=== PATIENT | male | born 1975 | race Caucasian/White ===

== ENCOUNTER 2023-06-10 05:22 | Emergency (ER) | payer OTHER, SELFPAY ==
--- NOTE | ~2023-06-10 | XR_ITS ---
Clinical Indication: Chest pain PA and lateral views of the chest: Comparison: None Findings: The lungs are clear, without evidence of focal consolidation or pleural effusion. Cardiome diastinal silhouette is within normal limits. Bones and soft tissues are unremarkable. Impression: Normal chest. Reviewed, dictated and finalized at location . IFIED ORTHOTIST/PEDORTHIST Impression: Normal chest.
--- NOTE | 2023-06-10 05:23 | ECG_ITS ---
Measurements Intervals [place] Rate: 70 P: 65 IN: 179 QRS: -14 QRSD: 108 T: 21 QT: 385 QTc: 415 Interpretive Statements SINUS RHYTHM NORMAL ELECTROCARDIOGRAM+ NO PREVIOUS ECG AVAILABLE FOR COMPARISON Electronically Signed On 06-10-2023 12:39:30 COMPUTER ASSISTANT by Ruiz Alexis M.D.
[2023-06-10 05:27] VITALS: BP 158/72; PULSE 78; RESP 14; TEMP 36.3; O2SAT 100
--- NOTE | 2023-06-10 05:30 | ED.CHESTPAIN ---
HPI - Chest Pain General Chief Complaint: Chest Pain <Marion Thakur MD - Last Filed: 06/10/23 07:19> Stated Complaint: chest pain <Marion Thakur MD - Last Filed: 06/10/23 07:19> Time Seen by Provider: 06/10/23 05:28 <Marion Thakur MD - Last Filed: 06/10/23 07:19> Source: patient <Marion Thakur MD - Last Filed: 06/10/23 07:19> Mode of arrival: ambulatory <Marion Thakur MD - Last Filed: 06/10/23 07:19> Limitations: no limitations <Marion Thakur MD - Last Filed: 06/10/23 07:19> History of Present Illness HPI narrative: 48-year-old male past medical history GERD presents with acute onset left sided chest pain radiating into his left arm which is experiencing some tingling into the forearm and digits 1 and 2. This started acutely at 4:00 a.m. waking out of a sleep. He was lightheaded and nauseated but these two symptoms resolved. The chest pain and numbness/tingling persist though occurs intermittently. He had been on that 330 to urinate and did not have symptoms at that time. This is not associated with shortness of breath and he has not been experiencing cough or fever. This has happened before. He previously saw a airframe and powerplant mechanic when it occurred in 2009 while living in [place]; reportedly normal work up. He also had symptoms in 2017 Where he felt like his heart was slowed but with more intense heartbeats and he would experience episodes of flushing with this. He wore an event monitor in which he recorded multiple such events occurring but these do not correspond with any concerning EKG findings. This was evaluated by his cardiologst in [place]. He does not a history of anxiety. No lower extremity edema. He has been trying to work out, sleep well. home medications include 20 mg of omeprazole in the morning and 20 mg of famotidine in the evening. He is also a small dose of Zoloft which he is currently being titrated off of under the direction of his primary care physician is currently taking every other day. Is also taking tamsulosin q.h.s.. <Marion Thakur MD - Last Filed: 06/10/23 07:19> Related Data Allergies/Adverse Reactions: Allergies Allergy/AdvReac Type Severity Reaction Status Date / Time No Known Allergies Allergy Verified 06/10/23 05:31 <Marion Thakur MD - Last Filed: 06/10/23 07:19> PMFSH Past Medical History Medical History: Medical History (Updated 06/10/23 @ 06:23 by Marion Thakur MD) GERD (gastroesophageal reflux disease) <Marion Thakur MD - Last Filed: 06/10/23 07:19> Social History Social History: Social History (Updated 06/10/23 @ 06:25 by Marion Thakur MD) Living arrangements: with family Additional living arrangements comments: Occupation/Education: occupation <Marion Thakur MD - Last Filed: 06/10/23 07:19> Exam Narrative: GENERAL: Well-appearing, well-nourished, and in no acute distress. HEAD: Normocephalic, atraumatic. EYES: Non injected, non icteric ENT: Nares clear, no rhinorrhea or epistaxis. NECK: Supple. CHEST: Clear to auscultation. No respiratory distress. HEART: Regular rate and rhythm. . ABDOMEN: Soft, nondistended. EXTREMITIES: Normal range of motion. No edema. SKIN: Warm, dry, no rash. NEURO: No focal deficits. Alert and oriented x3. PSYCH: Normal mood and affect. <Marion Thakur MD - Last Filed: 06/10/23 07:19> Course Course Emergency Course: Received sign-out on this patient pending repeat troponin. Delta troponin is unremarkable. Repeat EKG without changes, no acute ischemic changes. Patient is safe for outpatient management. Advised PCP follow-up. Appropriate return precautions given. Discharged in stable condition. <Cherrie Ambrosio MD - Last Filed: 06/10/23 10:44> Vital Signs Vital signs: Vital Signs Temperature 97.4 F L 06/10/23 05:27 Pulse Rate 78
[2023-06-10] MEDS: ASPIRIN 81 MG CHEWABLE TABLET 324 MG PO (05:33)
[2023-06-10 05:44] LABS: Basophils Percent Auto 0.4 % (0.2-1.2); Eosinophils Absolute Auto 0.1 K/mm3 (0-0.3); Eosinophils Percent Auto 2.2 % (0-4.4); Hematocrit 45.2 % (42.0-52.0); Hemoglobin 15.1 g/dL (14.0-18.0); Immature Granulocyte Absolute 0.01 K/mm3 (0.00-0.031); Immature Granulocyte Percent A 0.2 % (0-0.5); Lymphocytes Absolute Auto 2.14 K/mm3 (0.9-3.2); Lymphocytes Percent Auto 43.4 % (18.3-44.2); Mean Corpuscular HGB Conc 33.4 g/dl (32-36); Mean Corpuscular Hemoglobin 31.3 pg (26-34); Mean Corpuscular Volume 93.8 fl (80-100); Mean Platelet Volume 9.9 fl (7.4-10.4); Monocytes Absolute Auto 0.5 K/mm3 (0.1-0.6); Monocytes Percent Auto 10.1 % (2.6-8.5); Neutrophils Absolute Auto 2.2 K/mm3 (1.3-6.7); Neutrophils Percent Auto 43.7 % (45.5-73.1); Platelet Count Result 205 k/mm3 (150-375); Red Blood Count 4.82 M/mm3 (4.6-6.20); Red Cell Distribution Width 12.3 % (11.5-14.5); White Blood Count 4.9 K/mm3 (4.5-10.0)
[2023-06-10] MEDS: ACETAMINOPHEN 500 MG TABLET 1000 MG PO (05:54)
[2023-06-10 05:55] LABS: Prothrombin Time 13.4 Seconds (11.1-14.7)
[2023-06-10 05:56] LABS: Partial Thromboplastin Time 27.7 SECONDS (22.3-36.8)
[2023-06-10 06:11] LABS: Alanine Aminotransferase 55 U/L (6-50); Albumin Level 4.5 g/dL (3.5-5.1); Alkaline Phosphatase 71 U/L (38-126); Anion Gap 5 mmol/L (8-16); Aspartate Amino Transferase 51 U/L (17-59); Bilirubin,Total 0.6 mg/dL (0.2-1.3); Blood Urea Nitrogen 27 mg/dL (9-20); Calcium 9.3 mg/dL (8.4-10.2); Carbon Dioxide 29 mmol/L (22-30); Chloride 103 mmol/L (98-107); Estimated CRCL calculation 91 ml/min; Estimated Glomerular Filt Rate > 60; Glucose 104 mg/dL (65-110); Lipase 121 U/L (23-300); Sodium 137 mmol/L (137-145)
[2023-06-10 06:18] LABS: Troponin I < 0.012 ng/mL (0.000-0.034)
[2023-06-10 06:31] VITALS: BP 126/74; PULSE 60; RESP 15; O2SAT 97
[2023-06-10] MEDS: IBUPROFEN 600 MG TABLET PO (07:28)
[2023-06-10 09:17] LABS: Troponin I < 0.012 ng/mL (0.000-0.034)
--- NOTE | 2023-06-10 10:27 | ECG_ITS ---
Measurements Intervals [place] Rate: 60 P: 41 NE: 185 QRS: -19 QRSD: 107 T: 5 QT: 388 QTc: 388 Interpretive Statements SINUS RHYTHM LOW QRS VOLTAGE WITHIN NORMAL LIMITS NO PREVIOUS ECG AVAILABLE FOR COMPARISON Electronically Signed On 06-10-2023 12:43:01 EM PHYSICIAN by Ruiz Alexis M.D.
[2023-06-10 10:57] VITALS: BP 123/78; PULSE 70; RESP 16; O2SAT 97
== END 2023-06-10 11:00 | disposition home or self-care (01) ==
PROVIDERS: Emergency Provider Student in an Organized Health Care Education/Training Program; PCP Physician Assistant
DX: R07.9 Chest pain, unspecified (principal); R74.01 Elevation of levels of liver transaminase levels; K21.9 Gastro-esophageal reflux disease without esophagitis
CPT/HCPCS: 36415; 71046; 80053; 83690; 84484; 85025; 85610; 85730; 93005; 99284; A9270

== ENCOUNTER 2024-09-19 08:06 | Emergency (ER) | payer OTHER, SELFPAY ==
--- NOTE | ~2024-09-19 | XR_ITS ---
XR foot RT 2V 09/19/2024 08:33 INDICATION: Possible foreign body. PROCEDURE: 4 views right foot COMPARISON: No prior studies for comparison. FINDINGS: Fracture, dislocation or subluxation is not identified. The soft tissues appear within norm al limits. No foreign bodies are identified. IMPRESSION: 1: NO ACUTE BONE OR JOINT ABNORMALITY IDENTIFIED. Reviewed, dictated and finalized at location A.
--- OUTSIDE RECORDS SUMMARY | 2024-09-19 08:09 | XMS_ITS | Encounter Summary ---
Author Name [facility] Organization [facility] Address [address] [place] [address] Care Team Providers Care Turkey Boner Name Role Phone SERENE HAYES Primary Care Provider Unavailab le Selected Encounter This section includes the information on record at [place] for the Encounter. Date/Time Encounter Type Encounter Description Reason Pro vider Source Sep 22, 2023 05:55 AM Outpatient Encounter COMMUNITY CARE CONSULT IHE Encounter Template Text not used by [place] Plan of Treatment: Future Appointments (+ 6 months) and Future Tests (+/- 45 days) The Plan of Treatment section includes future care activities for the patient from all [place] treatmentfacilities. This section includes future appointments and future orders which are active, pending or scheduled. Future Appointments This section includes appointments that were scheduled to occur 6 months from the date of the Encounter, up to a maximum of 20 appointments. The data comes from all [place] treatment facilities. Appointment Date/Time Appointment Type Appointme nt Facility Name Jan 11, 2024 08:50 AM AMBULATORY - NONE [facility] Active, Pending, and Scheduled Orders This section includes a listing of several types of active, pending, and scheduled orders, including clinic medications orders, diagnostic test orders, procedure orders and consult orders; where the start date of the order is 45 days before the date of the Encounter or 45 days after the date of theEncounter. The data comes from all [place] treatment facilities. Test Date/Time Test Type Test Details Facility Name Sep 22, 2023 02:55 PM Consult Order COMMUNITY CARE-[facility] DENTAL SPEC Cons Real Estate Agent/Broker's Choice [facility] Encounter Notes: All associated encounter notes This section contains the clinical notes associated to the Encounter. Date/Time Encounter Note(s) Provider Source Sep 22, 2023 02:56 PM ADDENDUM: LOCAL TITLE: Addendum STANDARD TITLE: ADDENDUM DATE OF NOTE: SEP 22, 2023@14:56:56 ENTRY DATE: SEP 22, 2023@14:56:57 AUTHOR: AJIT GARCIA EXP COSIGNER: URGENCY: STATUS: COMPLETED [facility] DENTAL SERVICE/COMMUNITY CARE RFS DETERMINATION The requested treatment: AUTHORIZED SUBMITTED. AUTHORIZED TREATMENT: E7284-Fggcuu of oral Tissue-hard (bone-tooth V6225-Xqielrjl (ressobable) per site#6 R0265-Qmcl Replace graft-1st site in quad #[address] ACTION STEPS * RFS/ADA Dental Claim Form external records reviewed. * New consult(s) placed with corresponding SEOC(s). * [place] to continue dental treatment with community provider. AUTHORIZED PROVIDER: Olu Irene [address] [place] [address] Email: [email or web address] COMMUNITY CARE COORDINATION NOTES Please continue 's care for authorized treatment. /mona/ AJIT GARCIA DMD DENTIST Signed: 09/22/2023 14:57 Receipt Acknowledged By: 09/22/2023 15:13 /mona/ ABELARDO BUCHANAN COMMUNITY CARE RN --- Original Document --- 09/22/23 COMMUNITY CARE-REQUEST FOR SERVICE NOTE ST[facility]: Request for Services (RFS) documentation has been sent for scanning to [facility] Community [facility] Consult: COMMUNITY CARE-stl den spec Consult No: [id number] Date sent to scanning: Sep A Request for Service (RFS) form [id number] has been received which includes the following: Care Requested: E6727-Jtbbwq of oral Tissue-hard (bone-tooth V7905-Rkidtbsz (ressobable) per site#6 J1186-Mxoj Replace graft-1st site in quad #6 ICD-10 Dx code: K05.6 Date [place] received request: Sep Date service required: Sep Requesting Community Provider Information: [address] [place] [address] Email: [email or web address] /mona/ MAUREEN TAYLOR ADVANCE ROLLER PICKER Signed: 09/22/2023 05:59 Receipt Acknowledged By: 09/22/2023 14:56 /es/ AJIT GARCIA DMD DENTIST AJIT GARCIA [facility] Sep 22, 2023 05:55 AM NONVA NOTE: LOCAL TITLE: COMMUNITY CARE-REQUEST FOR SERVICE NOTE STL STANDARD TITLE: NONVA NOTE DATE OF NOTE: SEP 22, 2023@05:55 ENTRY DATE: SEP 22, 2023@05:56:06 AUTHOR: MAUREEN TAYLOR EXP COSIGNER: URGENCY: STATUS: COMPLETED COMMUNITY CARE-REQUEST FOR SERVICE NOTE [facility] Has ADDENDA Request for Services (RFS) documentation has been sent for scanning to [facility] Community Care Consult: COMMUNITY CARE-stl den spec Consult No: [id number] Date sent to scanning: Sep A Request for Service (RFS) form [id number] has been received which includes the following: Care Requested: X8307-Phhpkk of oral Tissue-hard (bone-tooth E2114-Dkwioejw (ressobable) per site#6 N0229-Jrcl Replace graft-1st site in quad #6 ICD-10 Dx code: K05.6 Date [place] received request: Sep Date service required: Sep Requesting Community Provider Information: [address] [address] Email: [email or web address] /mona/ MAUREEN TAYLOR ADVANCE ROLLER PICKER Signed: 09/22/2023 05:59 Receipt Acknowledged By: 09/22/2023 14:56 /es/ AJIT GARCIA DMD DENTIST 09/22/2023 ADDENDUM STATUS: COMPLETED [facility] DENTAL SERVICE/COMMUNITY CARE RFS DETERMINATION The requested treatment: AUTHORIZED SUBMITTED. AUTHORIZED TREATMENT: T2954-Fsylib of oral Tissue-hard (bone-tooth N9154-Dsjdzmfq (ressobable) per site#6 X7703-Dvlb Replace graft-1st site in quad #[address] ACTION STEPS * RFS/ADA Dental Claim Form external records reviewed. * New consult(s) placed with corresponding SEOC(s). * [place] to continue dental treatment with community provider. AUTHORIZED PROVIDER: O[address] Irene [address] [place] [address] Email: [email or web address] COMMUNITY CARE COORDINATION NOTES Please continue [place]'s care for authorized treatment. /mona/ AJIT GARCIA DMD DENTIST Signed: 09/22/2023 14:57 Receipt Acknowledged By: * AWAITING SIGNATURE * ABELARDO BUCHANAN ALICIA M [facility]
--- OUTSIDE RECORDS SUMMARY | 2024-09-19 08:10 | XMS_ITS | Encounter Summary ---
Author Organization [facility] Facility Care Team Providers Care Rag Grader Name Role Phone Hollis Martinez Primary Care Provider [phone] Jovi Batista MD Primary Care Provider [phone] Encounter Details Date Type Department Care Team (Latest Contact Info) Description 04/30/2014 Orders Only [facility] CLINCONV Provider, MD Brissa [address] [place] [address] Social History Tobacco Use Types Packs/Day Years Used Date Smoking Tobacco: Never Assessed Sex and Gender Information Value Date Recorded Sex Assigned at Not on file Legal Sex Male 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 Historical Provider Final Res ult documented in this encounter Visit Diagnoses Not on filedocumented in this encounter Additional Health Concerns Infection Onset Date Last Indicated Resolved Time COVID: Suspected 09/29/2021 09/29/2021 09/30/2021 3:05 AM CDT COVID: Suspected 09/30/2021 09/30/2021 09/30/2021 8:25 PM CDT documented as of this encounter Care Teams Rag Grader Relationship Specialty Start Date End Date Hollis Martinez PA PCP - General Family Medicine 09/21/18 11/21/23 J[place] [address] PCP - General Family Medicine 11/22/23 documented as of this encounter
--- OUTSIDE RECORDS SUMMARY | 2024-09-19 08:10 | XMS_ITS | Encounter Summary ---
Author Organization [facility] Facility Care Team Providers Care Butcher Meat Name Role Phone Hollis Martinez Primary Care Provider [phone] Jovi Batista MD Primary Care Provider [phone] Encounter Details Date Type Department Care Team (Latest Contact Info) Description 06/03/2016 Orders Only [facility] CLINCONV Provider, MD Brissa [address] [place] [address] Social History Tobacco Use Types Packs/Day Years Used Date Smoking Tobacco: Never Sex and Gender Information Value Date Recorded Sex Assigned at Not on file Legal 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 Historical Provider Final Res ult documented in this encounter Visit Diagnoses Not on filedocumented in this encounter Additional Health Concerns Infection Onset Date Last Indicated Resolved Time COVID: Suspected 09/29/2021 09/29/2021 09/30/2021 3:05 AM CDT COVID: Suspected 09/30/2021 09/30/2021 09/30/2021 8:25 PM CDT documented as of this encounter Care Teams Butcher Meat Relationship Specialty Start Date End Date Hollis Martinez PA PCP - General Family Medicine 09/21/18 11/21/23 Jovi [place] [address] PCP - General Family Medicine 11/22/23 documented as of this encounter
--- OUTSIDE RECORDS SUMMARY | 2024-09-19 08:10 | XMS_ITS | Clinical Summary ---
Author Organization [facility] Address [address] [place] [address] Care Team Providers Care Search Engine Optimizer Name Role Phone Unavailable Primary Care Provider Unavailabl e Medications tamsulosin (FLOMAX) 0.4 mg capsule Take 1 Capsule (0.4 mg) by mouth daily. 90 Capsule 3 08/07/2024 Active Encounters Date Type Department Care Team Description 09/05/2024 External Device Data [facility] ABSTRACTION Provider, Abstract 09/04/2024 External Device Data [facility] ABSTRACTION Provider, Abstract 08/14/2024 External Device Data [facility] ABSTRACTION Provider, Abstract 08/14/2024 External Device Data [facility] ABSTRACTION Provider, Abstract 08/14/2024 External Device Data [facility] ABSTRACTION Provider, Abstract from Last 3 Months Social History Tobacco Use Types Packs/Day Years Used Date Smoking Tobacco: Never Assessed Sex and Gender Information Value Date Recorded Sex Assigned at Not on file Legal Sex Male 9:22 AM CDT Gender Identity Not on file Sexual Orientation Not on file Plan of Treatment Health Maintenance Due Date Last Done Comments DTAP/TDAP/TD VACCINES (1 - Tdap) 1994 HEPATITIS B VACCINES (1 of 3 - 19+ 3-dose series) 05/20 COLORECTAL SCREENING 2020 Colorectal Cancer Screening 2020 FIT-DNA Q 3 years 2020 FIT/FOBT Q 1 year 2020 Flex Sig/CT Colonography Q 5 years 2020 INFLUENZA VACCINE (#1) 2023 Insurance RX [employer]
--- OUTSIDE RECORDS SUMMARY | 2024-09-19 08:10 | XMS_ITS | Encounter Summary ---
Author Organization [facility] Facility Care Team Providers Care Instrument Panel Assembler Name Role Phone Hollis Martinez Primary Care Provider [phone] Jovi Batista MD Primary Care Provider [phone] Encounter Details Date Type Department Care Team (Latest Contact Info) Description 11/02/2016 Orders Only [facility] CLINCONV ProviderBrissa MD [address] [place] [address] Social History Tobacco Use Types Packs/Day Years Used Date Smoking Tobacco: Never Sex and Gender Information Value Date Recorded Sex Assigned at Not on file Legal Sex Male 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 Historical Provider [facility] Final Result documented in this encounter Visit Diagnoses Not on filedocumented in this encounter Additional Health Concerns Infection Onset Date Last Indicated Resolved Time COVID: Suspected 09/29/2021 09/29/2021 09/30/2021 3:05 AM CDT COVID: Suspected 09/30/2021 09/30/2021 09/30/2021 8:25 PM CDT documented as of this encounter Care Teams Instrument Panel Assembler Relationship Specialty Start Date End Date Hollis Martinez PA PCP - General Family Medicine 09/21/18 11/21/23 Jovi Batista MD [address] [place] [address] PCP - General Family Medicine 11/22/23 documented as of this encounter
--- OUTSIDE RECORDS SUMMARY | 2024-09-19 08:10 | XMS_ITS | Encounter Summary ---
Author Organization [facility] Facility Care Team Providers Care Methods And Procedures Analyst Name Role Phone Hollis Martinez Primary Care Provider [phone] Jovi Batista MD Primary Care Provider [phone] Encounter Details Date Type Department Care Team (Latest Contact Info) Description 08/26/2016 Orders Only [facility] CLINCONV ProviderBrissa MD [address] [place] [address] Social History Tobacco Use Types Packs/Day Years Used Date Smoking Tobacco: Never Sex and Gender Information Value Date Recorded Sex Assigned at Not on file Legal 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 Historical Provider [facility] SUN[facility] Final Result documented in this encounter Visit Diagnoses Not on filedocumented in this encounter Additional Health Concerns Infection Onset Date Last Indicated Resolved Time COVID: Suspected 09/29/2021 09/29/2021 09/30/2021 3:05 AM CDT COVID: Suspected 09/30/2021 09/30/2021 09/30/2021 8:25 PM CDT documented as of this encounter Care Teams Methods And Procedures Analyst Relationship Specialty Start Date End Date Hollis Martinez PA PCP - General Family Medicine 09/21/18 11/21/23 Jovi Batista MD [address] [place] [address] PCP - General Family Medicine 11/22/23 documented as of this encounter
--- OUTSIDE RECORDS SUMMARY | 2024-09-19 08:10 | XMS_ITS | Continuity of Care Document ---
Author Name [facility] Organization [facility] Care Team Providers Care Developmental Mathematics Professor Name Role Phone [facility] Unavailable Unavailable Problems Combined list of problems from Department of [facility] and Veterans Affairs facilities. It does not include entries that were removed or entered in error. Problem Status Onset Date Problem Type Date of Resolution Comments Source Allergic Rhinitis (SCT [id number]) Active Condition [facility] Anxiety ([facility] [id number]) Active Condition [facility] Wong's Esophagus (SCT 382172658) Active Condition [facility] Cervical pain Active Condition [facility] Depression ([facility] [id number]) Active Condition [facility] Elevated PSA (SCT 261850193) Active Condition [facility] Exposure to potentially hazardous substance ([facility] [id number]) Active Condition Aug 08 Entered By: YAHIR BLANCAS Comment: Entered automatically through LUTHER Problem List documentation program [facility] GERD - Gastro-Esophageal Reflux Disease (SCT [id number]) Active Condition [facility] Hypercholesterolemia (SCT 18891774) Active Condition [facility] Hyperlipidemia (SCT 13121473) Active Condition [facility] LBP - Low back pain Active Condition [facility] Patient Overweight (SCT 427284075) Active Condition [facility] Polyp Colon (SCT 40706429) Active Condition Aug 03, 2024 Entered By: LUIS ANGEL HAYES Comment: [address] [facility] Sleep Apnea (SCT 52888136) Active Condition [facility] upper back pain (between shoulder blades) Active Condition [facility] DEPRESSION Active Condition [facility] [place] Inactive Condition DoD DEVIATED NASAL SEPTUM (ACQUIRED) Active Condition [facility] Aftercare Following Surgery Active Condition [facility] Outpatient Physician Consultation Active Condition [facility] Snoring Active Condition DoD joint pain in the toes Active Condition [facility] CONTUSION WITH INTACT SKIN SURFACE - LEFT FIFTH TOE Inactive Condition DoD joint pain, localized in the knee Inactive Condition DoD ACUTE MENISCAL TEAR MEDIAL Inactive Condition DoD AXIS V GLOBAL ASSESS OF FUNCTIONING (GAF) SCALE ___ (100-0) Active Condition DoD AXIS IV PSYCHOSOCIAL AND ENVIRONMENTAL PROBLEMS Inactive Condition DoD NO PSYCHIATRIC DIAGNOSIS ON AXIS III Inactive Condition DoD NO PSYCHIATRIC DIAGNOSIS ON AXIS II Inactive Condition DoD ALLERGIC RHINITIS Active Condition DoD ASSESSMENT OF PATIENT CONDITION WORK-RELATED Active Condition Do D Patient Education Active Condition DoD OCCUPATIONAL PROBLEM Active Condition D oD SHOULDER STRAIN RHOMBOID MUSCLES LEFT Inactive Condition DoD Patient Education Dietary Energy Expenditure Active Condition DoD BOTELLO SPLINT Inactive Condition DoD joint pain, localized in the shoulder Active Condition DoD insomnia Active Condition DoD FATIGUE Active Condition DoD visit for: administrative purpose Inactive Condition Do D UNSPECIFIED MUSCLE STRAIN Inactive Condition DoD visit for: screening exam chlamydial infections Inactive Condition DoD CHLAMYDIAL INFECTIONS Inactive Condition 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 Condition [facility] Anticipatory Guidance: Unsafe Sexual Practices Inactive Condition DoD UPPER RESPIRATORY INFECTION ACUTE Inactive Condition [facility] visit for: examination of subpopulation Active Condition [facility] visit for: ears / hearing exam Active Condition DoD HEMORRHOIDS Active Condition DoD deployment Inactive Condition D oD CIRCADIAN RHYTHM SLEEP DISORDER Active Condition DoD GASTROENTERITIS Active Condition DoD diarrhea Active Condition DoD HYPERCHOLESTEROLEMIA Active Condition D oD OVERWEIGHT Active Condition DoD DERMATOPHYTOSIS TINEA PEDIS Inactive Condition [facility] visit for: issue medical certificate Inactive Condition DoD CHEST PAIN Inactive Condition DoD KNEE SPRAIN LATERAL COLLATERAL LIGAMENT Inactive Condition DoD current diet needs less fat, more fiber Active Condition [facility] current diet needs improvement Active Condition DoD current diet needs reduction of caloric intake Active Condition [facility] Body Mass Index Inactive Condition [facility] Patient Education - Dietary Active Condition [facility] Laboratory Studies Active Condition DoD noncompliance with therapy Active Condition DoD Dietary Counseling Pertaining To Obesity Active Condition DoD OBESITY Active Condition DoD ESOPHAGEAL REFLUX Active Condition DoD visit for: psychiatric exam requested by authority Active Condition DoD ACUTE BRONCHITIS Inactive Condition no indication for ABX at this time. [facility] Administrative Evaluation Services Inactive Condition No medic al issues noted which would prevent PCS, pt cleared and Medical Clearance Form/AF Form 422 signed off. Pt directed to f/u with [facility] for processing. 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 Exam wnl. Qualified for work.Aero: nonflyerP2: PPE wear DoD HYPERLIPIDEMIA Active Condition LDL g oal not met. Increase Zocor to 20mg today. Start fish oil supplementatio n, increase oily fishin diet. DoD visit for: issue repeat prescription for medication Inactive Condition DoD visit for: issue repeat prescription Inactive Condition 1 RX SIMVASTATIN 10MG (ZOCOR) PO TAB--PO 10MG ~T1 TAB PO QPM RF0 #90 DS90 on 15 Nov 2006 @1454 {needs to f/u w new PCM prior next refill} ~HCP Sig.Needed . . . . . . . . . . . . . . sBHYRAR 31JUL@1454 2 RX RABEPRAZOLE 20MG (ACIPHEX) PO TAB~T1 TAB PO QD ( EVERY DAY ) 30-60 MINUTES BEFORE A MEAL RF0 #90 DS90 on 15 Nov 2006@1454 {needs f/u new PCM prior next refill} ~HCP Sig.Needed . . . . . . . . . . . . . . sBHYRAR 31JUL@1454 DoD PHASE OF LIFE OR LIFE CIRCUMSTANCE PROBLEM Inactive Condition DoD PARTNER RELATIONAL PROBLEM Inactive Condition Resolved DoD OTHER INTERPERSONAL PROBLEM Inactive Condition DoD Diagnosis: ICD-10-CM G47.30 Sleep apnea, unspecified Active Diagnosis [facility] Medications Combined list of outpatient medications from Department of Defense and Veterans Affairs facilities.Medications provided include 1) outpatient medications from the last 15 months, and 2) patient-reported medications. Medication Details Route Status Patient Instructions Prescription Expires Prescription Number Last Dispense Date Ordering Provider Order Date Order Qty Source FAMOTIDINE 40MG TAB TAKE ONE TABLET BY MOUTH TWICE A DAY FOR GASTROES OPHAGEAL REFLUX DISEASE ORAL ACTIVE 08/04/2025 [id number] 5 SERENE HAYES 2024 180 [facility] OMEPRAZOLE (omeprazole ), 20 MG, CAPSULE MELIA WHITLEY Memrise, 1000 ea. BOTTLE Cancele d [id number] : 2023 0 Pharmac y Data Transac tion Service Facilit y OMEPRAZOLE (omeprazole ), 20 MG, CAPSULE MELIA WHITLEY, [employer], 1000 ea. BOTTLE Cancele d [id number] : 2023 0 Pharmac y Data Transac tion Service Facilit y OMEPRAZOLE (omeprazole ), 20 MG, CAPSULE , ORAL, [employer], 1000 ea. BOTTLE Cancele d [id number] : 2023 0 Pharmac y Data Transac tion Service Facilit y OMEPRAZOLE (omeprazole ), 40 MG, CAPSULE , ORAL, [employer], 500 ea. BOTTLE Active [id number] 2023 90 Pharmac y Data Transac tion Service Facilit y OMEPRAZOLE (omeprazole ), 40 MG, CAPSULE DR, ORAL, [employer], 500 ea. BOTTLE Active [id number] 2023 90 Pharmac y Data Transac tion Service Facilit y OMEPRAZOLE 40MG CAP,EC TAKE ONE CAPSULE BY MOUTH EVERY MORNING BEFORE A MEAL FOR GASTROES OPHAGEAL REFLUX DISEASE TAKE 30 MINUTES PRIOR TO FOOD. ORAL ACTIVE 08/04/2025 [id number] 5 SERENE HAYES 2024 90 [facility] SERTRALINE HCL 50MG TAB TAKE ONE-HALF TABLET BY MOUTH EVERY MORNING FOR DEPRESSI ON ORAL ACTIVE 08/04/2025 [id number] 5 SERENE HAYES 2024 45 [facility] TAMSULOSIN HCL 0.4MG CAP TAKE ONE CAPSULE BY MOUTH EVERY EVENING FOR BENIGN PROSTATI C HYPERPLA JOSE DAVID APPROXIM ATELY 30 MINUTES AFTER THE SAME MEAL EACH DAY ORAL ACTIVE 08/04/2025 [id number] 5 SERENE HAYES 2024 90 [facility] Allergies, Adverse Reactions, Alerts Combined list of allergies from Department of Defense and Veterans Affairs facilities. It does not include entries that were removed or entered in error. Substance Category Reaction Severity Reaction type Status Date Reported Comments Source No Known Allergies Drug allergy (disorder) active 5 [facility] Tai BOLAÑOS ([facility] SEASONAL ALLERGIES Propensity to adverse reaction (finding) active 8 [facility] Immunizations Combined list of available immunizations from the Department of Defense and Veterans Affairs facilities. Immunization Series Date Given Administered By Site Reaction Lot Number CVX Code Drug Account Manager B2B Status Comments Source Influenza, injectable, Madin Romina Canine Kidney, preservative free, quadrivalent 1 2016 Unknown, Provider [id number] Se[employer] (SEQ) complet ed Influenza , injectabl e, Madin Castor Canine Kidney, preservat kesha free, quadrival ent DoD pneumococcal polysaccharid e vaccine, 23 valent 1 2016 Unknown, Provider [id number] Merck (MSD) complet ed pneumococ iris polysacch aride vaccine, 23 valent DoD Influenza, injectable, quadrivalent, preservative free 1 2015 Unknown, Provider [id number] 150 [facility] (SKB) complet ed Influenza , injectabl e, quadrival ent, preservat kesha free DoD Influenza, injectable, quadrivalent, preservative free 21 2014 [id number] 150 [facility] (SKB) complet ed Influenza , injectabl e, quadrival ent, preservat kesha free DoD Influenza, seasonal, injectable, preservative free 20 2013 [id number] 140 Novartis Qinec. (NOV) complet ed Influenza , seasonal, injectabl e, preservat kesha free DoD measles, mumps and rubella virus vaccine 0 2012 03 () Not Given measles, mumps and rubella virus vaccine DoD influenza, live, intranasal, quadrivalent 19 2012 [id number] [employer]. (MED) complet ed influenza , live, intranasa l, quadrival ent DoD Influenza, seasonal, injectable 18 2011 [id number] 141 [employer] (CSL) complet ed Influenza , seasonal, injectabl e DoD anthrax vaccine 7 2011 [id number] [employer] [place] ([facility]) complet ed anthrax vaccine DoD typhoid Vi capsular polysaccharid e vaccine 7 2011 [id number] 101 Sanofi Pasteur (PMC) complet ed typhoid Vi capsular polysacch aride vaccine DoD tetanus toxoid, reduced diphtheria toxoid, and acellular pertu is vaccine, adsorbed 0 2011 [id number] 115 [facility] (SKB) complet ed tetanus toxoid, reduced diphtheri a toxoid, and acellular pertussis vaccine, adsorbed DoD influenza virus vaccine, live, attenuated, for intranasal use 17 2010 [id number] 111 [employer] (MED) complet ed influenza virus vaccine, live, attenuate d, for intranasa l use DoD anthrax vaccine [id number] [facility] ([facility]) complet ed anthrax vaccine DoD influenza virus vaccine, live, attenuated, for intranasal use 1 2009 [id number] 111 [employer] (MED) complet ed influenza virus vaccine, live, attenuate d, for intranasa l use DoD typhoid Vi capsular polysaccharid e vaccine 1 2009 [id number] 101 Sanofi Pasteur (PMC) complet ed typhoid Vi capsular polysacch aride vaccine DoD Novel influenza-H1N 1-09, injectable 1 2008 [id number] 127 Sanofi Pasteur (PMC) complet ed Novel influenza -U4V2-68, injectabl e DoD influenza virus vaccine, live, attenuated, for intranasal use 1 2008 [id number] 111 [employer] (MED) complet ed influenza virus vaccine, live, attenuate d, for intranasa l use DoD anthrax vaccine [id number] [facility] ([facility]) complet ed anthrax vaccine DoD vaccinia (smallpox) vaccine 1 2008 [id number] 75 [facility] ([facility]) complet ed vaccinia (smallpox ) vaccine DoD yellow fever vaccine 1 2007 [id number] 37 Sanofi Pasteur (PMC) complet ed yellow fever vaccine DoD hepatitis B vaccine, adult dosage 3 2007 [id number] 43 [facility] (SKB) complet ed hepatitis B vaccine, adult dosage DoD influenza virus vaccine, live, attenuated, for intranasal use 1 2007 [id number] 111 [employer] (MED) complet ed influenza virus vaccine, live, attenuate d, for intranasa l use DoD meningococcal polysaccharid e (groups A, C, Y and W-135) diphtheria toxoid conjugate vaccine (MCV4P) 1 2007 [id number] 114 Sanofi Pasteur (PMC) complet ed meningoco ccal polysacch aride (groups A, C, Y and W-135) diphtheri a toxoid conjugate vaccine (MCV4P) DoD hepatitis B vaccine, adult dosage 2 2007 [id number] 43 Merck (MSD) complet ed hepatitis B vaccine, adult dosage DoD hepatitis B vaccine, adult dosage 1 2007 [id number] 43 Merck (MSD) complet ed hepatitis B vaccine, adult dosage DoD typhoid Vi capsular polysaccharid e vaccine 1 2007 [id number] 101 Sanofi Pasteur ([facility]) complet ed typhoid Vi capsular polysacch aride vaccine DoD influenza virus vaccine, split virus (incl. purified surface antigen)-reti red CODE 1 2006 [id number] 15 [employer] (SKB) complet ed influenza virus vaccine, split virus (incl. purified surface antigen)- retired CODE DoD varicella virus vaccine 0 2006 21 () Not Given varicella virus vaccine DoD influenza virus vaccine, split virus (incl. purified surface antigen)-reti red CODE 1 2005 [id number] 15 Sanofi Pasteur ([facility]) complet ed influenza virus vaccine, split virus (incl. purified surface antigen)- retired CODE DoD influenza virus vaccine, split virus (incl. purified surface antigen)-reti red CODE 1 2004 [id number] 15 Sanofi Pasteur ([facility]) complet ed influenza virus vaccine, split virus (incl. purified surface antigen)- retired CODE DoD tuberculin skin test; purified protein derivative solution, intradermal 1 2004 Unknown, Provider [id number] Other (OT) complet ed tuberculi n skin test; purified protein derivativ e solution, intraderm al DoD influenza virus vaccine, split virus (incl. purified surface antigen)-reti red CODE 0 2003 [id number] 15 Sanofi Pasteur ([facility]) complet ed influenza virus vaccine, split virus (incl. purified surface antigen)- retired CODE DoD typhoid vaccine, parenteral, other than acetone-kille d, dried 0 2003 [id number] 41 Sanofi Pasteur ([facility]) complet ed typhoid vaccine, parentera l, other than acetone-k illed, dried DoD tetanus and diphtheria toxoids, adsorbed, preservative free, for adult use (2 Lf of tetanus toxoid and 2 Lf of diphtheria toxoid) 0 2003 [id number] 09 Sanofi Pasteur ([facility]) complet ed tetanus and diphtheri a toxoids, adsorbed, preservat kesha free, for adult use (2 Lf of tetanus toxoid and 2 Lf of diphtheri a toxoid) DoD influenza virus vaccine, split virus (incl. purified surface antigen)-reti red CODE 1 2002 [id number] 15 [employer] (PW) complet ed influenza virus vaccine, split virus (incl. purified surface antigen)- retired CODE DoD influenza virus vaccine, whole virus 0 2002 [id number] 16 [employer] (PW) complet ed influenza virus vaccine, whole virus DoD influenza virus vaccine, split virus (incl. purified surface antigen)-reti red CODE 1 2001 [id number] 1-2 15 [employer] ([facility]) complet ed influenza virus vaccine, split virus (incl. purified surface antigen)- retired CODE DoD influenza virus vaccine, whole virus 0 2001 [id number] 1-2 16 [employer] ([facility]) complet ed influenza virus vaccine, whole virus DoD influenza virus vaccine, split virus (incl. purified surface antigen)-reti red CODE 1 2001 [id number] 1-2 15 [employer] ([facility]) complet ed influenza virus vaccine, split virus (incl. purified surface antigen)- retired CODE DoD influenza virus vaccine, whole virus 0 2001 [id number] 1-2 16 [employer] ([facility]) complet ed influenza virus vaccine, whole virus DoD influenza virus vaccine, split virus (incl. purified surface antigen)-reti red CODE 1 2000 [id number] 15 Sanofi Pasteur ([facility]) complet ed influenza virus vaccine, split virus (incl. purified surface antigen)- retired CODE DoD influenza virus vaccine, whole virus 0 2000 [id number] 16 Sanofi Pasteur ([facility]) complet ed influenza virus vaccine, whole virus DoD typhoid vaccine, parenteral, other than acetone-kille d, dried 0 2000 [id number] 41 [employer] (CON) complet ed typhoid vaccine, parentera l, other than acetone-k illed, dried DoD influenza virus vaccine, whole virus 0 1999 [id number] 16 [employer] ([facility]) complet ed influenza virus vaccine, whole virus DoD anthrax vaccine [id number] [facility] ([facility]) complet ed anthrax vaccine DoD influenza virus vaccine, whole virus 0 [id number] 16 [employer] ([facility]) complet influenza virus vaccine, whole virus DoD typhoid vaccine, parenteral, other than acetone-kille d, dried 0 1998 41 () complet ed typhoid vaccine, parentera l, other than acetone-k illed, dried DoD tuberculin skin test; purified protein derivative solution, intradermal 1 1998 Unknown, Provider [id number] [place] [address] ([facility]) complet ed tuberculi n skin test; purified protein derivativ e solution, intraderm al DoD anthrax vaccine [id number] [facility] ([facility]) complet ed anthrax vaccine DoD influenza virus vaccine, whole virus 0 [id number] 16 [employer] (Inactive) ([place]) complet ed influenza virus vaccine, whole virus DoD anthrax vaccine 3 1997 [id number] 24 [facility] ([facility]) complet ed anthrax vaccine DoD anthrax vaccine 2 1997 [id number] 24 [facility] ([facility]) complet ed anthrax vaccine DoD anthrax vaccine [id number] [facility] ([facility]) complet ed anthrax vaccine [facility] influenza virus vaccine, split virus (incl. purified surface antigen)-reti red CODE 1 1996 15 () complet influenza virus vaccine, split virus (incl. purified surface antigen)- retired CODE [facility] influenza virus vaccine, whole virus 0 1996 16 () complet influenza virus vaccine, whole virus [facility] hepatitis A vaccine, adult dosage 2 1996 52 () complet hepatitis A vaccine, adult dosage DoD typhoid vaccine, parenteral, acetone-kille d, dried ([place] ) 2 1995 53 () complet typhoid vaccine, parentera l, acetone-k illed, dried ([place] ) DoD yellow fever vaccine 0 1995 37 () complet yellow fever vaccine DoD trivalent poliovirus vaccine, live, oral 0 1993 02 () complet trivalent polioviru s vaccine, live, oral DoD measles and rubella virus vaccine 0 1993 04 () Not Given measles and rubella virus vaccine DoD tetanus and diphtheria toxoids, adsorbed, preservative free, for adult use (2 Lf of tetanus toxoid and 2 Lf of diphtheria toxoid) 0 1993 09 () complet ed tetanus and diphtheri a toxoids, adsorbed, preservat kesha free, for adult use (2 Lf of tetanus toxoid and 2 Lf of diphtheri a toxoid) DoD meningococcal polysaccharid e vaccine (MPSV4) 0 1993 32 () complet ed meningoco ccal polysacch aride vaccine (MPSV4) DoD Results Combined list of recent chemistry, hematology and other laboratory results from Department of Defense and Veterans Affairs, ranging from 15 months to all on record, depending upon the facility. Order Name Results Value Reference Range Date Interpretation Specimen Comments Source TESTOSTERO NE, FREE PANEL TESTOSTERON E [MASS/VOLUM E] IN SERUM OR PLASMA 230 ng/dL 250 - 1100 08/03 L Specimen Type: SERUM Comment: For additional information, please refer to [email or web address] [email or web address] m/faq/ TotalTestost eroneLCMSMSF AQ165 (This link is being provided for informationa l/ educational purposes only.) This test was developed and its analytical performance characterist ics have been determined by [employer] [place], [place]. It has not been cleared or approved by the U.S. Food and Drug Administrati on. This assay has been validated pursuant to the CLIA regulations and is used for clinical purposes. Test Performed by [employer], [employer] [place], [address] [place], [place] Drew Dhillon M.D., Ph.D., Director of Laboratories , CLIA [id number] Ordering Provider: JONATHAN HAYES Report Released Date/Time: Aug 03, 2024 12:50 PM Reporting Lab: [facility] [address] [facility] [id number] Performing Lab: [facility] [address] [facility] TESTOSTERO NE, FREE PANEL ALBUMIN [MASS/VOLUM E] IN SERUM OR PLASMA 4.9 g/dL 3.6 - 5.1 08/03 Specimen Type: SERUM Comment: For additional information, please refer to http://[employer] m/faq/ TotalTestost eroneLCMSMSF AQ165 (This link is being provided for informationa l/ educational purposes only.) This test was developed and its analytical performance characterist ics have been determined by [employer] [place], [place]. It has not been cleared or approved by the U.S. Food and Drug Administrati on. This assay has been validated pursuant to the CLIA regulations and is used for clinical purposes. Test Performed by [employer], [employer], [address] [place] [address] Drew Dhillon M.D., Ph.D., Director of [place] , CLIA [id number] Ordering Provider: JONATHAN HAYES Report Released Date/Time: Aug 03, 2024 12:50 PM Reporting Lab: [facility] [address] [facility] [address] Performing Lab: [facility] [address] [place] [address] [facility] TESTOSTERO NE, FREE PANEL TESTOSTERON E FREE [MASS/VOLUM E] IN SERUM OR PLASMA 42.9 pg/mL 46.0 - 224.0 08/03 L Specimen Type: SERUM Comment: For additional information, please refer to http://[email or web address] m/faq/ TotalTestost eroneLCMSMSF AQ165 (This link is being provided for informationa l/ educational purposes only.) This test was developed and its analytical performance characterist ics have been determined by [employer] [place], [place]. It has not been cleared or approved by the U.S. Food and Drug Administrati on. This assay has been validated pursuant to the CLIA regulations and is used for clinical purposes. Test Performed by [employer], [address] [place] [address] Drew Dhillon M.D., Ph.D., Director of Laboratories , CLIA [id number] Ordering Provider: JONATHAN HAYES Report Released Date/Time: Aug 03, 2024 12:50 PM Reporting Lab: [address] [address] Performing Lab: [address] [facility] TESTOSTERO NE, FREE PANEL TESTOSTERON E.FREE+WEAK LY BOUND [MASS/VOLUM E] IN SERUM OR PLASMA 95.6 ng/dL 110.0 - 575.0 08/03 L Specimen Type: SERUM Comment: For additional information, please refer to http://educa tion.[email or web address] m/faq/ TotalTestost eroneLCMSMSF AQ165 (This link is being provided for informationa l/ educational purposes only.) This test was developed and its analytical performance characterist ics have been determined by [employer] [place], [place]. It has not been cleared or approved by the U.S. Food and Drug Administrati on. This assay has been validated pursuant to the CLIA regulations and is used for clinical purposes. Test Performed by [facility], [employer] [facility], [address] [place] [address] Drew Dhillon M.D., Ph.D., Director of Laboratories , CLIA [id number] Ordering Provider: JONATHAN HAYES Report Released Date/Time: Aug 03, 2024 12:50 PM Reporting Lab: [address] [address] Performing Lab: [address] [facility] TESTOSTERO NE, FREE PANEL SEX HORMONE BINDING GLOBULIN [MOLES/VOLU ME] IN SERUM OR PLASMA 18 nmol/L 10 - 50 08/03 Specimen Type: SERUM Comment: For additional information, please refer to http://educa tion.[email or web address].co m/faq/ TotalTestost eroneLCMSMSF AQ165 (This link is being provided for informationa l/ educational purposes only.) This test was developed and its analytical performance characterist ics have been determined by [employer] [place], [place]. It has not been cleared or approved by the U.S. Food and Drug Administrati on. This assay has been validated pursuant to the CLIA regulations and is used for clinical purposes. Test Performed by [facility], [employer] [facility], [address] [place], [place] Drew Dhillon M.D., Ph.D., Director of Laboratories , CLIA [id number] Ordering Provider: JONATHAN HAYES Report Released Date/Time: Aug 03, 2024 12:50 PM Reporting Lab: [address] [address] Performing Lab: [facility] [address] [facility] COMPREHENS KESHA METABOLIC PANEL CREATININE [MASS/VOLUM E] IN SERUM OR PLASMA 0.96 mg/dL 0.7 - 1.3 08/03 Specimen Type: PLASMA Comment: No hemolysis noted. Ordering Provider: JONATHAN HAYES Report Released Date/Time: Aug 03, 2024 12:50 PM Reporting Lab: [address] [address] Performing Lab: [address] [phone] [place] [address] [facility] COMPREHENS KESHA METABOLIC PANEL UREA NITROGEN [MASS/VOLUM E] IN SERUM OR PLASMA 20.5 mg/dL 9.0 - 25.0 08/03 Specimen Type: PLASMA Comment: No hemolysis noted. Ordering Provider: JONATHAN HAYES Report Released Date/Time: Aug 03, 2024 12:50 PM Reporting Lab: [address] [address] Performing Lab: [place] [address] [facility] [address] [facility] COMPREHENS KESHA METABOLIC PANEL GLUCOSE [MASS/VOLUM E] IN SERUM OR PLASMA 100 mg/dL 72 - 99 08/03 H Specimen Type: PLASMA Comment: No hemolysis noted. Ordering Provider: JONATHAN HAYES Report Released Date/Time: Aug 03, 2024 12:50 PM Reporting Lab: [address] [address] Performing Lab: [address] [address] [facility] COMPREHENS KESHA METABOLIC PANEL SODIUM [MOLES/VOLU ME] IN SERUM OR PLASMA 138 meq/L 136 - 145 08/03 Specimen Type: PLASMA Comment: No hemolysis noted. Ordering Provider: JONATHAN HAYES Report Released Date/Time: Aug 03, 2024 12:50 PM Reporting Lab: [address] [address] Performing Lab: [address] [address] [facility] COMPREHENS KESHA METABOLIC PANEL POTASSIUM [MOLES/VOLU ME] IN SERUM OR PLASMA 4.3 meq/L 3.5 - 5 08/03 Specimen Type: PLASMA Comment: No hemolysis noted. Ordering Provider: JONATHAN HAYES Report Released Date/Time: Aug 03, 2024 12:50 PM Reporting Lab: [place] [address] [facility] [address] Performing Lab: [address] [address] [facility] COMPREHENS KESHA METABOLIC PANEL CHLORIDE [MOLES/VOLU ME] IN SERUM OR PLASMA 105 meq/L 98 - 107 08/03 Specimen Type: PLASMA Comment: No hemolysis noted. Ordering Provider: JONATHAN HAYES Report Released Date/Time: Aug 03, 2024 12:50 PM Reporting Lab: [address] [address] Performing Lab: [place] [address] [facility] [address] [facility] COMPREHENS KESHA METABOLIC PANEL CARBON DIOXIDE, TOTAL [MOLES/VOLU ME] IN SERUM OR PLASMA 22 meq/L 22 - 31 08/03 Specimen Type: PLASMA Comment: No hemolysis noted. Ordering Provider: JONATHAN HAYES Report Released Date/Time: Aug 03, 2024 12:50 PM Reporting Lab: [place] [address] [facility] [address] Performing Lab: [place] [address] [facility] [address] [facility] COMPREHENS KESHA METABOLIC PANEL CALCIUM [MASS/VOLUM E] IN SERUM OR PLASMA 9.3 mg/dL 8.4 - 10.4 08/03 Specimen Type: PLASMA Comment: No hemolysis noted. Ordering Provider: JONATHAN HAYES Report Released Date/Time: Aug 03, 2024 12:50 PM Reporting Lab: [address] [address] Performing Lab: [address] [address] [facility] COMPREHENS KESHA METABOLIC PANEL PROTEIN [MASS/VOLUM E] IN SERUM OR PLASMA 7.5 g/dL 6 - 8.6 08/03 Specimen Type: PLASMA Comment: No hemolysis noted. Ordering Provider: JONATHAN HAYES Report Released Date/Time: Aug 03, 2024 12:50 PM Reporting Lab: [place] [address] [facility] [address] Performing Lab: [address] [address] [facility] COMPREHENS KESHA METABOLIC PANEL ALBUMIN [MASS/VOLUM E] IN SERUM OR PLASMA 4.7 g/dL 3.4 - 5 08/03 Specimen Type: PLASMA Comment: No hemolysis noted. Ordering Provider: JONATHAN HAYES Report Released Date/Time: Aug 03, 2024 12:50 PM Reporting Lab: [address] [place] [address] Performing Lab: [place] [address] [facility] [address] [facility] COMPREHENS KESHA METABOLIC PANEL BILIRUBIN.T OTAL [MASS/VOLUM E] IN SERUM OR PLASMA 0.5 mg/dL 0.2 - 1.2 08/03 Specimen Type: PLASMA Comment: No hemolysis noted. Ordering Provider: JONATHAN HAYES Report Released Date/Time: Aug 03, 2024 12:50 PM Reporting Lab: [address] [address] Performing Lab: [address] [address] [facility] COMPREHENS KESHA METABOLIC PANEL ALKALINE PHOSPHATASE [ENZYMATIC ACTIVITY/VO LUME] IN SERUM OR PLASMA 68 U/L 40 - 150 08/03 Specimen Type: PLASMA Comment: No hemolysis noted. Ordering Provider: JONATHAN HAYES Report Released Date/Time: Aug 03, 2024 12:50 PM Reporting Lab: [place] [address] [facility] [address] Performing Lab: [address] [address] [facility] COMPREHENS KESHA METABOLIC PANEL ASPARTATE AMINOTRANSF ERASE [ENZYMATIC ACTIVITY/VO LUME] IN SERUM OR PLASMA 56 U/L 5 - 34 08/03 H Specimen Type: PLASMA Comment: No hemolysis noted. Ordering Provider: JONATHAN HAYES Report Released Date/Time: Aug 03, 2024 12:50 PM Reporting Lab: [address] [phone] Performing Lab: [address] [address] [facility] COMPREHENS KESHA METABOLIC PANEL ALANINE AMINOTRANSF ERASE [ENZYMATIC ACTIVITY/VO LUME] IN SERUM OR PLASMA 113 U/L 8 - 40 08/03 H Specimen Type: PLASMA Comment: No hemolysis noted. Ordering Provider: SIMMERING,JA MES Report Released Date/Time: Aug 03, 2024 12:50 PM Reporting Lab: [facility] [address] [facility] [address] Performing Lab: [place] [address] [facility] [address] [facility] COMPREHENS KESHA METABOLIC PANEL GLOMERULAR FILTRATION RATE/1.73 SQ M.PREDICTED [VOLUME RATE/AREA] IN SERUM, PLASMA OR BLOOD BY CREATININE- BASED FORMULA (CKD-EPI 2020) 96.9 60 08/03 Specimen Type: PLASMA Comment: No hemolysis noted. Ordering Provider: JONATHAN HAYES MES Report Released Date/Time: Aug 03, 2024 12:50 PM Reporting Lab: [place] [address] [facility] [address] Performing Lab: [place] [address] [facility] [address] [facility] LIPID PANEL (STL) CHOLESTEROL [MASS/VOLUM E] IN SERUM OR PLASMA 258 mg/dL 0 - 200 08/03 H Specimen Type: PLASMA Comment: No hemolysis noted. Ordering Provider: JONATHAN HAYES MES Report Released Date/Time: Aug 03, 2024 12:50 PM Reporting Lab: [facility] [address] Performing Lab: [place] [address] [facility] [address] [facility] LIPID PANEL (STL) TRIGLYCERID E [MASS/VOLUM E] IN SERUM OR PLASMA 220 mg/dL 0 - 150 08/03 H Specimen Type: PLASMA Comment: No hemolysis noted. Ordering Provider: JONATHAN HAYES MES Report Released Date/Time: Aug 03, 2024 12:50 PM Reporting Lab: [address] [address] Performing Lab: [address] [address] [facility] LIPID PANEL (STL) CHOLESTEROL IN LDL [MASS/VOLUM E] IN SERUM OR PLASMA BY CALCULATION 173 mg/dL 08/03 Specimen Type: PLASMA Comment: No hemolysis noted. Ordering Provider: JONATHAN HAYES Report Released Date/Time: Aug 03, 2024 12:50 PM Reporting Lab: [place] [address] Performing Lab: [address] [address] [facility] LIPID PANEL (STL) CHOLESTEROL IN HDL [MASS/VOLUM E] IN SERUM OR PLASMA 41 mg/dL 40 08/03 Specimen Type: PLASMA Comment: No hemolysis noted. Ordering Provider: JONATHAN HAYES Report Released Date/Time: Aug 03, 2024 12:50 PM Reporting Lab: [place] [address] Performing Lab: [address] [phone] [facility] CBC LEUKOCYTES [#/VOLUME] IN BLOOD BY AUTOMATED COUNT 7.7 10*3/u L 3.6 - 11.2 08/03 Specimen Type: BLOOD No comment entered. Ordering Provider: JONATHAN HAYES Report Released Date/Time: Aug 03, 2024 12:50 PM Reporting Lab: [place] [phone] Performing Lab: [address] [address] [facility] CBC ERYTHROCYTE S [#/VOLUME] IN BLOOD BY AUTOMATED COUNT 5.06 10*6/u L 4.10 - 5.70 08/03 Specimen Type: BLOOD No comment entered. Ordering Provider: JONATHAN HAYES Report Released Date/Time: Aug 03, 2024 12:50 PM Reporting Lab: [place] [address] Performing Lab: [address] [address] [facility] CBC HEMOGLOBIN [MASS/VOLUM E] IN BLOOD 15.4 g/dL 13.1 - 16.8 08/03 Specimen Type: BLOOD No comment entered. Ordering Provider: JONATHAN HAYES Report Released Date/Time: Aug 03, 2024 12:50 PM Reporting Lab: [place] [address] Performing Lab: [place] [phone] [facility] CBC HEMATOCRIT [VOLUME FRACTION] OF BLOOD 44.4 38.2 - 48.4 08/03 Specimen Type: BLOOD No comment entered. Ordering Provider: JONATHAN HAYES Report Released Date/Time: Aug 03, 2024 12:50 PM Reporting Lab: [place] [address] Performing Lab: [address] [facility] CBC MCV [ENTITIC VOLUME] BY AUTOMATED COUNT 87.7 fL 80.0 - 100.0 08/03 Specimen Type: BLOOD No comment entered. Ordering Provider: JONATHAN HAYES Report Released Date/Time: Aug 03, 2024 12:50 PM Reporting Lab: [place] [address] Performing Lab: [address] [facility] CBC MCH [ENTITIC MASS] BY AUTOMATED COUNT 30.4 pg 27.0 - 34.0 08/03 Specimen Type: BLOOD No comment entered. Ordering Provider: JONATHAN HAYES Report Released Date/Time: Aug 03, 2024 12:50 PM Reporting Lab: [place] [address] Performing Lab: [address] [facility] CBC MCHC [MASS/VOLUM E] BY AUTOMATED COUNT 34.7 g/dL 33.0 - 36.0 08/03 Specimen Type: BLOOD No comment entered. Ordering Provider: JONATHAN HAYES Report Released Date/Time: Aug 03, 2024 12:50 PM Reporting Lab: [facility] [address] Performing Lab: [address] [address] [facility] CBC PLATELETS [#/VOLUME] IN BLOOD BY AUTOMATED COUNT 255 10*3/u L 150 - 400 08/03 Specimen Type: BLOOD No comment entered. Ordering Provider: OJNATHAN HAYES Report Released Date/Time: Aug 03, 2024 12:50 PM Reporting Lab: [place] [address] [facility] [address] Performing Lab: [address] [phone] [place] [address] [facility] CBC PLATELET MEAN VOLUME [ENTITIC VOLUME] IN BLOOD BY AUTOMATED COUNT 10.7 fL 7.5 - 11.2 08/03 Specimen Type: BLOOD No comment entered. Ordering Provider: JONATHAN HAYES Report Released Date/Time: Aug 03, 2024 12:50 PM Reporting Lab: [place] [address] [facility] [address] Performing Lab: [address] [address] [facility] CBC ERYTHROCYTE DISTRIBUTIO N WIDTH [RATIO] BY AUTOMATED COUNT 12.9 11.8 - 15.1 08/03 Specimen Type: BLOOD No comment entered. Ordering Provider: JONATHAN HAYES Report Released Date/Time: Aug 03, 2024 12:50 PM Reporting Lab: [place] [address] [facility] [address] Performing Lab: [address] [address] [facility] CBC LYMPHOCYTES /100 LEUKOCYTES IN BLOOD BY AUTOMATED COUNT 23 08/03 Specimen Type: BLOOD No comment entered. Ordering Provider: JONATHAN HAYES Report Released Date/Time: Aug 03, 2024 12:50 PM Reporting Lab: [facility] [place] [phone] Performing Lab: [facility] [address] [facility] [address] [facility] CBC MONOCYTES/1 00 LEUKOCYTES IN BLOOD BY AUTOMATED COUNT 7 08/03 Specimen Type: BLOOD No comment entered. Ordering Provider: JONATHAN HAYES Report Released Date/Time: Aug 03, 2024 12:50 PM Reporting Lab: [place] [address] [facility] [address] Performing Lab: [place] [address] [facility] [address] [facility] CBC NEUTROPHILS /100 LEUKOCYTES IN BLOOD BY AUTOMATED COUNT 69 08/03 Specimen Type: BLOOD No comment entered. Ordering Provider: JONATHAN HAYES Report Released Date/Time: Aug 03, 2024 12:50 PM Reporting Lab: [address] [address] Performing Lab: [place] [address] [facility] [address] [facility] CBC EOSINOPHILS /100 LEUKOCYTES IN BLOOD BY AUTOMATED COUNT 1 08/03 Specimen Type: BLOOD No comment entered. Ordering Provider: JONATHAN HAYES Report Released Date/Time: Aug 03, 2024 12:50 PM Reporting Lab: [place] [address] [facility] [address] Performing Lab: [address] [address] [facility] CBC BASOPHILS/1 00 LEUKOCYTES IN BLOOD BY AUTOMATED COUNT 0 08/03 Specimen Type: BLOOD No comment entered. Ordering Provider: JONATHAN HAYES Report Released Date/Time: Aug 03, 2024 12:50 PM Reporting Lab: [address] [address] Performing Lab: [place] [address] [facility] [address] [facility] CBC LYMPHOCYTES [#/VOLUME] IN BLOOD BY AUTOMATED COUNT 1.74 10*3/u L 0.77 - 4.50 08/03 Specimen Type: BLOOD No comment entered. Ordering Provider: JONATHAN HAYES Report Released Date/Time: Aug 03, 2024 12:50 PM Reporting Lab: [place] [phone] Performing Lab: [address] [address] [facility] CBC MONOCYTES [#/VOLUME] IN BLOOD BY AUTOMATED COUNT 0.55 10*3/u L 0.19 - 0.80 08/03 Specimen Type: BLOOD No comment entered. Ordering Provider: JONATHAN HAYES Report Released Date/Time: Aug 03, 2024 12:50 PM Reporting Lab: [place] [address] Performing Lab: [address] [phone] [address] [facility] CBC NEUTROPHILS [#/VOLUME] IN BLOOD BY AUTOMATED COUNT 5.30 10*3/u L 2.10 - 8.00 08/03 Specimen Type: BLOOD No comment entered. Ordering Provider: JONATHAN HAYES Report Released Date/Time: Aug 03, 2024 12:50 PM Reporting Lab: [address] [address] Performing Lab: [address] [phone] [place] [address] [facility] CBC EOSINOPHILS [#/VOLUME] IN BLOOD BY AUTOMATED COUNT 0.06 10*3/u L 0.00 - 0.60 08/03 Specimen Type: BLOOD No comment entered. Ordering Provider: JONATHAN HAYES Report Released Date/Time: Aug 03, 2024 12:50 PM Reporting Lab: [place] [phone] Performing Lab: [address] [address] [facility] CBC BASOPHILS [#/VOLUME] IN BLOOD BY AUTOMATED COUNT 0.02 10*3/u L 0.00 - 0.20 08/03 Specimen Type: BLOOD No comment entered. Ordering Provider: JONATHAN HAYES Report Released Date/Time: Aug 03, 2024 12:50 PM Reporting Lab: [facility] [address] [place] [address] Performing Lab: [address] [facility] HGA1C HEMOGLOBIN A1C/HEMOGLO BIN.TOTAL IN BLOOD 5.9 4.0 - 6.0 08/03 Specimen Type: BLOOD No comment entered. Ordering Provider: JONATHAN HAYES Report Released Date/Time: Aug 03, 2024 12:50 PM Reporting Lab: [place] [address] Performing Lab: [address] [facility] URINALYSIS (STL-PB) COLOR OF URINE Light- Yellow 08/03 Specimen Type: URINE No comment entered. Ordering Provider: JONATHAN HAYES Report Released Date/Time: Aug 03, 2024 12:50 PM Reporting Lab: [place] [address] Performing Lab: [address] [facility] URINALYSIS (STL-PB) BILIRUBIN.T OTAL [PRESENCE] IN URINE BY TEST STRIP Negati vemg/d L 08/03 Specimen Type: URINE No comment entered. Ordering Provider: JONATHAN HAYES Report Released Date/Time: Aug 03, 2024 12:50 PM Reporting Lab: [place] [address] Performing Lab: [address] [facility] URINALYSIS (STL-PB) PH OF URINE BY TEST STRIP 6.0 5.0 - 8.0 08/03 Specimen Type: URINE No comment entered. Ordering Provider: JONATHAN HAYES Report Released Date/Time: Aug 03, 2024 12:50 PM Reporting Lab: [place] [phone] Performing Lab: [place] [address] [facility] [address] [facility] URINALYSIS (STL-PB) APPEARANCE OF URINE Clear 08/03 Specimen Type: URINE No comment entered. Ordering Provider: JONATHAN HAYES Report Released Date/Time: Aug 03, 2024 12:50 PM Reporting Lab: [place] [phone] Performing Lab: [place] [phone] [facility] URINALYSIS (STL-PB) NITRITE [PRESENCE] IN URINE BY TEST STRIP Negati vemg/d L 08/03 Specimen Type: URINE No comment entered. Ordering Provider: JONATHAN HAYES Report Released Date/Time: Aug 03, 2024 12:50 PM Reporting Lab: [place] [address] [place] [phone] Performing Lab: [place] [address] [place] [phone] [facility] URINALYSIS (STL-PB) GLUCOSE [MASS/VOLUM E] IN URINE BY TEST STRIP Normal mg/dL 08/03 Specimen Type: URINE No comment entered. Ordering Provider: JONATHAN HAYES Report Released Date/Time: Aug 03, 2024 12:50 PM Reporting Lab: [facility] [place] [phone] Performing Lab: [place] [phone] [facility] URINALYSIS (STL-PB) PROTEIN [MASS/VOLUM E] IN URINE BY TEST STRIP Negati vemg/d L 08/03 Specimen Type: URINE No comment entered. Ordering Provider: JONATHAN HAYES Report Released Date/Time: Aug 03, 2024 12:50 PM Reporting Lab: [facility] [place] [phone] Performing Lab: [facility] [address] [facility] URINALYSIS (STL-PB) URN.UROBILI NOGEN Normal mg/dL 08/03 Specimen Type: URINE No comment entered. Ordering Provider: JONATHAN HAYES Report Released Date/Time: Aug 03, 2024 12:50 PM Reporting Lab: [place] [address] [place] [phone] Performing Lab: [place] [address] [place] [phone] [place] [address] [facility] URINALYSIS (STL-PB) HEMOGLOBIN [MASS/VOLUM E] IN URINE BY TEST STRIP Negati vemg/d L 08/03 Specimen Type: URINE No comment entered. Ordering Provider: JONATHAN HAYES Report Released Date/Time: Aug 03, 2024 12:50 PM Reporting Lab: [facility] [place] [phone] Performing Lab: [place] [address] [facility] [address] [facility] URINALYSIS (STL-PB) KETONES [MASS/VOLUM E] IN URINE BY TEST STRIP Negati vemg/d L 08/03 Specimen Type: URINE No comment entered. Ordering Provider: JONATHAN HAYES Report Released Date/Time: Aug 03, 2024 12:50 PM Reporting Lab: [facility] [place] [phone] Performing Lab: [facility] [address] [place] [address] [facility] URINALYSIS (STL-PB) URN.LEUK.ES T. Negati vemg/d L 08/03 Specimen Type: URINE No comment entered. Ordering Provider: JONATHAN HAYES Report Released Date/Time: Aug 03, 2024 12:50 PM Reporting Lab: [place] [address] [place] [address] Performing Lab: [place] [address] [place] [id number] [facility] URINALYSIS (STL-PB) SPECIFIC GRAVITY OF URINE 1.016 08/03 Specimen Type: URINE No comment entered. Ordering Provider: JONATHAN HAYES Report Released Date/Time: Aug 03, 2024 12:50 PM Reporting Lab: [place] [address] [place] [phone] Performing Lab: [place] [address] [facility] URINE DRUG SCREEN (STL) ETHANOL [MASS/VOLUM E] IN URINE <10mg/ dL 0 - 9 08/03 Specimen Type: URINE Comment: The cut-off value for Fentanyl was laboratory developed and its performance characterist ics confirmed by the [facility] laboratory thru method comparison with reference laboratory and medication chart review. The laboratory is regulated under CLIA as qualified to perform high-complex ity testing. Fentanyl is used for clinical purposes in conjunction with other laboratory tests. Ordering Provider: JONATHAN HAYES Report Released Date/Time: Aug 03, 2024 12:50 PM Reporting Lab: [place] [address] [place] [address] Performing Lab: [place] [address] [facility] URINE DRUG SCREEN (STL) AMPHETAMINE [PRESENCE] IN URINE BY SCREEN METHOD Negati veng/m L 08/03 Specimen Type: URINE Comment: The cut-off value for Fentanyl was laboratory developed and its performance characterist ics confirmed by the [facility] laboratory thru method comparison with reference laboratory and medication chart review. The laboratory is regulated under CLIA as qualified to perform high-complex ity testing. Fentanyl is used for clinical purposes in conjunction with other laboratory tests. Ordering Provider: JONATHAN HAYES Report Released Date/Time: Aug 03, 2024 12:50 PM Reporting Lab: [address] [phone] Performing Lab: [address] [address] [facility] URINE DRUG SCREEN (STL) BENZOYLECGO NINE [PRESENCE] IN URINE Negati veng/m L 08/03 Specimen Type: URINE Comment: The cut-off value for Fentanyl was laboratory developed and its performance characterist ics confirmed by the [facility] laboratory thru method comparison with reference laboratory and medication chart review. The laboratory is regulated under CLIA as qualified to perform high-complex ity testing. Fentanyl is used for clinical purposes in conjunction with other laboratory tests. Ordering Provider: JONATHAN HAYES Report Released Date/Time: Aug 03, 2024 12:50 PM Reporting Lab: [address] [phone] Performing Lab: [address] [phone] [place] [address] [facility] URINE DRUG SCREEN (STL) BENZODIAZEP REYMUNDO [PRESENCE] IN URINE BY SCREEN METHOD Negati veng/m L 08/03 Specimen Type: URINE Comment: The cut-off value for Fentanyl was laboratory developed and its performance characterist ics confirmed by the [facility] laboratory thru method comparison with reference laboratory and medication chart review. The laboratory is regulated under CLIA as qualified to perform high-complex ity testing. Fentanyl is used for clinical purposes in conjunction with other laboratory tests. Ordering Provider: JONATHAN HAYES Report Released Date/Time: Aug 03, 2024 12:50 PM Reporting Lab: [address] [phone] Performing Lab: [address] [phone] [place] [address] [facility] URINE DRUG SCREEN (STL) CANNABINOID S [PRESENCE] IN URINE BY SCREEN METHOD Negati veng/m L 08/03 Specimen Type: URINE Comment: The cut-off value for Fentanyl was laboratory developed and its performance characterist ics confirmed by the [facility] laboratory thru method comparison with reference laboratory and medication chart review. The laboratory is regulated under CLIA as qualified to perform high-complex ity testing. Fentanyl is used for clinical purposes in conjunction with other laboratory tests. Ordering Provider: JONATHAN HAYES Report Released Date/Time: Aug 03, 2024 12:50 PM Reporting Lab: [address] [phone] Performing Lab: [address] [address] [facility] URINE DRUG SCREEN (STL) METHADONE [PRESENCE] IN URINE Negati veng/m L 08/03 Specimen Type: URINE Comment: The cut-off value for Fentanyl was laboratory developed and its performance characterist ics confirmed by the [facility] laboratory thru method comparison with reference laboratory and medication chart review. The laboratory is regulated under CLIA as qualified to perform high-complex ity testing. Fentanyl is used for clinical purposes in conjunction with other laboratory tests. Ordering Provider: JONATHAN HAYES Report Released Date/Time: Aug 03, 2024 12:50 PM Reporting Lab: [address] [phone] Performing Lab: [address] [phone] [place] [address] [facility]OC URINE DRUG SCREEN (STL) OPIATES [PRESENCE] IN URINE BY SCREEN METHOD Negati veng/m L 08/03 Specimen Type: URINE Comment: The cut-off value for Fentanyl was laboratory developed and its performance characterist ics confirmed by the [facility] laboratory thru method comparison with reference laboratory and medication chart review. The laboratory is regulated under CLIA as qualified to perform high-complex ity testing. Fentanyl is used for clinical purposes in conjunction with other laboratory tests. Ordering Provider: JONATHAN HAYES Report Released Date/Time: Aug 03, 2024 12:50 PM Reporting Lab: [address] [phone] Performing Lab: [address] [address] [facility] URINE DRUG SCREEN (STL) CREATININE [MASS/VOLUM E] IN URINE 91.6 mg/dL 63 - 166 08/03 Specimen Type: URINE Comment: The cut-off value for Fentanyl was laboratory developed and its performance characterist ics confirmed by the [facility] laboratory thru method comparison with reference laboratory and medication chart review. The laboratory is regulated under CLIA as qualified to perform high-complex ity testing. Fentanyl is used for clinical purposes in conjunction with other laboratory tests. Ordering Provider: JONATHAN HAYES Report Released Date/Time: Aug 03, 2024 12:50 PM Reporting Lab: [place] [address] [facility] [address] Performing Lab: [place] [phone] [facility] URINE DRUG SCREEN (STL) OXYCODONE CUTOFF [MASS/VOLUM E] IN URINE FOR SCREEN METHOD Negati veng/m L 08/03 Specimen Type: URINE Comment: The cut-off value for Fentanyl was laboratory developed and its performance characterist ics confirmed by the [facility] laboratory thru method comparison with reference laboratory and medication chart review. The laboratory is regulated under CLIA as qualified to perform high-complex ity testing. Fentanyl is used for clinical purposes in conjunction with other laboratory tests. Ordering Provider: JONATHAN HAYES Report Released Date/Time: Aug 03, 2024 12:50 PM Reporting Lab: [place] [address] [facility] [address] Performing Lab: [address] [phone] [facility] URINE DRUG SCREEN (STL) BUPRENORPHI NE [PRESENCE] IN URINE Negati veng/m L 08/03 Specimen Type: URINE Comment: The cut-off value for Fentanyl was laboratory developed and its performance characterist ics confirmed by the [facility] laboratory thru method comparison with reference laboratory and medication chart review. The laboratory is regulated under CLIA as qualified to perform high-complex ity testing. Fentanyl is used for clinical purposes in conjunction with other laboratory tests. Ordering Provider: JONATHAN HAYES Report Released Date/Time: Aug 03, 2024 12:50 PM Reporting Lab: [address] [phone] Performing Lab: [address] [phone] [place] [address] [facility]OC URINE DRUG SCREEN (STL) FENTANYL [PRESENCE] IN URINE Negati veng/m L 08/03 Specimen Type: URINE Comment: The cut-off value for Fentanyl was laboratory developed and its performance characterist ics confirmed by the [facility] laboratory thru method comparison with reference laboratory and medication chart review. The laboratory is regulated under CLIA as qualified to perform high-complex ity testing. Fentanyl is used for clinical purposes in conjunction with other laboratory tests. Ordering Provider: JONATHAN HAYES Report Released Date/Time: Aug 03, 2024 12:50 PM Reporting Lab: [address] [phone] Performing Lab: [place] [phone] [place] [address] CBOC B12 COBALAMIN (VITAMIN B12) [MASS/VOLUM E] IN SERUM OR PLASMA 571 pg/mL 213 - 816 08/03 Specimen Type: SERUM Comment: The listed sex of this patient may not be a typical indication for this test. Therefore, reference ranges or interpretive criteria listed may not be valid. Clinical correlation suggested. Ordering Provider: JONATHAN HAYES Report Released Date/Time: Aug 03, 2024 12:50 PM Reporting Lab: [address] [phone] Performing Lab: [address] [phone] [place] [address] [facility]OC IRON/TIBC PROFILE IRON BINDING CAPACITY [MASS/VOLUM E] IN SERUM OR PLASMA 299 ug/dL 250 - 450 08/03 Specimen Type: SERUM No comment entered. Ordering Provider: JONATHAN HAYES Report Released Date/Time: Aug 03, 2024 12:50 PM Reporting Lab: [place] [phone] Performing Lab: [address] [place] [address] [facility] IRON/TIBC PROFILE TRANSFERRIN [MASS/VOLUM E] IN SERUM OR PLASMA 239 mg/dL 163 - 344 08/03 Specimen Type: SERUM No comment entered. Ordering Provider: JONATHAN HAYES Report Released Date/Time: Aug 03, 2024 12:50 PM Reporting Lab: [place] [address] Performing Lab: [place] [phone] [facility] IRON/TIBC PROFILE IRON SATURATION [MASS FRACTION] IN SERUM OR PLASMA 49 20 - 50 08/03 Specimen Type: SERUM No comment entered. Ordering Provider: JONATHAN HAYES Report Released Date/Time: Aug 03, 2024 12:50 PM Reporting Lab: [place] [address] Performing Lab: [place] [phone] [facility] IRON/TIBC PROFILE IRON [MASS/VOLUM E] IN SERUM OR PLASMA 147 ug/dL 65 - 175 08/03 Specimen Type: SERUM No comment entered. Ordering Provider: JONATHAN HAYES Report Released Date/Time: Aug 03, 2024 12:50 PM Reporting Lab: [place] [address] Performing Lab: [address] [facility] PROST. SPECIFIC AG.(PB-STL ) PROSTATE SPECIFIC AG [MASS/VOLUM E] IN SERUM OR PLASMA 2.671 ng/mL 0 - 4 08/03 Specimen Type: SERUM Comment: The listed sex of this patient may not be a typical indication for this test. Therefore, reference ranges or interpretive criteria listed may not be valid. Clinical correlation suggested. Ordering Provider: JONATHAN HAYES Report Released Date/Time: Aug 03, 2024 12:50 PM Reporting Lab: [address] [place] [address] Performing Lab: [facility] [address] [facility] [phone] [facility] Vital Signs Combined list of inpatient and outpatient Vital Signs from Department of [facility] and [facility], ranging from 12 months to all on record, depending upon the facility. Vital Sign Value Date Comments Source SYSTOLIC BLOOD PRESSURE 125 08/03/2024 12:34:14 [facility] DIASTOLIC BLOOD PRESSURE 84 08/03/2024 12:34:14 . [facility] PULSE OXIMETRY 93 08/03/2024 12:34:14 S . [facility] WEIGHT 276 08/03/2024 12:34:14 [facility] BMI 38 kg/m2 08/03/2024 12:34:14 [facility] PAIN 2 08/03/2024 12:34:14 [facility] HEIGHT 72 08/03/2024 12:34:14 [facility] TEMPERATURE 98 08/03/2024 12:34:14 . [facility] PULSE 90 08/03/2024 12:34:14 [facility] RESPIRATION 20 08/03/2024 12:34:14 . [facility] Encounters Combined list of: 1) Encounters from [facility] facilities going backup to the last 18 months, not all [place] inpatient encounters are included; 2) Encounters from the Department of [facility] facilities going backup to 280 months. Location Location Details Encounter Type Encounter Number Reason For Visit Attending Provider ADM Date DC Date Status Disposition Source [place] [facility] [employer] TELE CONSULT [id number] refill rxs NEERU BETANCUR 03/24 [place] [facility] ([place] [employer] [employer] [facility] [place] [facility] [employer] TELE CONSULT [id number] lab results JESICA ESTRADA 05/11 [place] [facility] ([place] [employer] [employer] [facility] [place] [facility] OUTPATIENT [id number] IFC III SYLVESTER REYES 05/19 Released w/o Limitations [place] [facility]) TELE CONSULT [id number] AMY SYLVESTER Tramaine 07/26 [facility] ([facility] [employer]) TELE CONSULT [id number] MED REFILL PHILOMENA LINK 11/15 [facility] ([facility] [employer] ) [facility]) OUTPATIENT [id number] [facility] RAJANI LEBRON 11/21 Released w/o Limitations [facility] ([facility]) [facility]) OUTPATIENT [id number] DENTAL PHA PEPE SHEPARD 01/18 Released w/o Limitations [facility] ([facility] [employer] ) [facility] [employer]) TELE CONSULT [id number] med refill and lab order JESICA ESTRADA 02/14 [facility] ([facility] [employer] ) [facility] [employer]) OUTPATIENT [id number] est: cholest jean and liver test result JAYRO LUNDBERG 03/07 Released w/o Limitations [facility] ([facility] [employer] ) [facility] Aerosmnce Medicine [facility]) OUTPATIENT [id number] [facility] health exam CAROLINA VIDES S 06/15 Released w/o Limitations [facility] ([facility] [employer]) OUTPATIENT [id number] est;ove rseas clearan ce PARK, AASIF H 06/21 Released w/o Limitations [facility] ([place] [employer] ) [facility] [employer]) OUTPATIENT [id number] coughin g,sneez ing,bur alberto chest,f ever,tr ied nyquil and dayquil NALDO LUGO 07/23 Sick at Home/Quarter s [facility] ([place] [employer] ) [facility] [employer]) TELE CONSULT [id number] med refill JESICA ESTRADA 09/16 [facility] ([facility] [employer] ) [facility]) OUTPATIENT [id number] est;f/u on labs and medicat ion JAYRO LUNDBERG Bruce 10/02 Released w/o Limitations [facility] ([place] [employer] ) [facility] [employer]) TELE CONSULT [id number] chol results NEERU LAST 10/26 [facility] ([facility] [employer] ) [employer] [employer](N utritiona l Med) OUTPATIENT [id number] [facility] BETTINA Waterman 11/06 Released w/o Limitations [employer] [employer] (Nutrit ional Med) [employer] [employer](F light Medicine [employer] [facility]) OUTPATIENT [id number] New Rx prescri ptSRAVAN House 01/21 Released w/o Limitations [employer] [employer] (Flight Medicin e [employer] [facility]) [employer] [employer](F light Medicine [employer]) OUTPATIENT [id number] [facility] [address] [facility] VERNA ATKINSON 03/13 Released w/o Limitations [employer] [facility] [employer] [place] [employer] (Flight Medicin e [employer] [facility]) [employer] OUTPATIENT [id number] Chest pain CAGEASHLEY 06/25 Released with Work/Duty Limitations [employer]([facility] light Medic[facility] Clinic) [employer]([facility] ght Medicine Clinic) TELE CONSULT [id number] test results THANH RIVERS 06/28 [employer]([facility] Medicin [facility] Clinic) [employer] [employer](F light Medicine [employer] [facility]) OUTPATIENT [id number] incomin g SRAVAN Burk 07/12 Released w/o Limitations [employer] [employer] (Flight Medicin e [employer] [facility]) [employer] [employer](F light Medicine [employer]) OUTPATIENT [id number] RTFS DEMETRIOVERNA Clay 07/31 Released w/o Limitations [employer] [employer] (Flight Medicin e [employer] [facility]) [facility] [employer] [place] [employer](F light Medicine [employer]) OUTPATIENT [id number] lipid/L FT f/u JOSE ANGEL OGLESBY L 09/27 Released w/o Limitations [employer] [employer] (Flight Medicin e [employer] [facility]) [employer] [place] [employer](F light Medicine [employer]) TELE CONSULT [id number] MEDICAT ION REFILLS FOR DEPLOYM JOSE ANGEL FRANKLIN L 11/12 [facility] [place] [employer] (Flight Medicin e [employer] [facility]) [facility] OUTPATIENT [id number] 11/27 Released w/o Limitations [employer] [facility] OUTPATIENT [id number] 11/28 Released with Work/Duty Limitations [employer] [facility] OUTPATIENT [id number] 11/29 Released w/o Limitations [facility] OUTPATIENT [id number] 12/09 Released w/o Limitations [employer] [facility] OUTPATIENT [id number] 12/31 Released w/o Limitations [facility] OUTPATIENT [id number] 01/15 Released w/o Limitations [employer] [facility] OUTPATIENT [id number] 01/24 Released w/o Limitations [facility] OUTPATIENT [id number] 01/29 Released w/o Limitations [facility] [employer](M ental Health [employer] [facility]) OUTPATIENT [id number] [employer] ([employer]) AMOS CARRERO 02/10 Released w/o Limitations [facility] [employer] [employer] (Mental Health [employer] [facility]) [employer] [employer](F light Medicine [employer]) OUTPATIENT [id number] lab results SRAVAN ORELLANA Elaine 02/14 Released w/o Limitations [employer] [employer] (Flight Medicin e [employer] [facility]) [employer] [employer](F light Medicine [employer]) OUTPATIENT [id number] PHA 350 PKF LIUDMILA NEWBY E 03/18 Released w/o Limitations [employer] [employer] (Flight Medicin e [employer] [facility]) [employer] [employer](O ptometry Clinic [employer] [facility]) OUTPATIENT [id number] PIP1 and FRANCOIS DIGGS 03/18 Released w/o Limitations [employer] [employer] (Opt[facility] try Clinic [facility]) [employer] [employer](F light Medicine [employer] [facility]) TELE CONSULT [id number] [facility] DARVIN Gambino 05/06 [employer] [employer] (Flight Medicin e [employer] [facility]) [employer] [employer](M ental Health [employer] [facility]) OUTPATIENT [id number] Predepl oyment EDIN Mcwilliams 05/07 Released w/o Limitations [employer] [facility] [employer] [employer] (Mental Health [employer] [facility]) [employer] [employer](M ental Health [employer] [facility]) OUTPATIENT [id number] REN Odell 05/07 Released w/o Limitations [employer] [facility] [employer] [employer] (Mental Health [employer] [facility]) [facility] OUTPATIENT [id number] 06/06 Released w/o Limitations [facility] OUTPATIENT [id number] 06/08 Released w/o Limitations [employer] [facility] [facility] [employer] [employer](M ental Health [employer] [facility]) OUTPATIENT [id number] Reinteg ration Manav POWER Olivia 10/21 Released w/o Limitations [employer] [employer] (Mental Health [employer] [facility]) [employer] [employer](F light Medicine [employer] [facility]) OUTPATIENT [id number] STD CHECK JULIÁN SABILLON 02/05 Released w/o Limitations [employer] [employer] (Flight Medicin e [employer] [facility]) [employer] [employer](F light Medicine [employer]) TELE CONSULT [id number] positiv e test result GOWRING, LIUDMILA E 02/20 [employer] [employer] (Flight Medicin e [employer] [facility]) [employer] [employer](F light Medicine [employer]) OUTPATIENT [id number] Follow with Dr. Wilian tirado 1530 JULIÁN SABILLON 03/18 Released w/o Limitations [employer] [employer] (Flight Medicin e [employer] [facility]) [employer] [employer](F light Medicine [employer] [facility]) OUTPATIENT [id number] Fly PHA/Dep COREY Berry 03/24 Released w/o Limitations [employer] [employer] (Flight Medicin e [employer] [facility]) [employer] [employer](F light Medicine [employer]) TELE CONSULT [id number] lab results GOWRING, LIUDMILA E 03/26 [employer] [employer] (Flight Medicin e [employer] [facility]) [facility] OUTPATIENT [id number] 04/22 Released w/o Limitations [facility] [facility] [employer] [employer]([facility]) TELE CONSULT [id number] STI Closeou t JULIÁN SABILLON 06/10 [employer] [employer] (Public Health) [employer] [employer](F light Medicine [employer] [facility]) OUTPATIENT [id number] right hip pain CHERIE SAUNDERS Vicente 06/26 Released w/o Limitations [employer] [employer] (Flight Medicin e [employer] [facility]) [employer] [employer](F light Medicine [employer]) TELE CONSULT [id number] Meds DARVIN Hernandez 07/13 [facility] [employer] [employer] (Flight Medicin e [employer] [facility]) [employer] [employer](O ptometry Clinic [facility]) OUTPATIENT [id number] Exam for DL Renewal ALEX MOYA E 07/13 Released w/o Limitations [employer] [employer] ([facility]) [employer] [employer](F light Medicine [employer]) TELE CONSULT [id number] Appt LETY Cline 09/23 Referred for Appointment [employer] [employer] (Flight Medicin e [employer] [facility]) [employer] [employer](F light Medicine [employer] [facility]) OUTPATIENT [id number] sleepin g issues GOWRING, LIUDMILA E 09/25 Released w/o Limitations [employer] [employer] (Flight Medicin e 22 MD[employer]) [employer] [employer](F light Medicine [employer] [facility]) OUTPATIENT [id number] f/u DARVIN Bey 10/14 Released w/o Limitations [employer] [employer] (Flight Medicin e 22 [facility]) [employer] [employer]([facility]) OUTPATIENT [id number] Sleep Enhance ZOEY [place] 10/27 Released w/o Limitations [employer] [employer] (Mental Health [facility]) [facility] [place] [employer](F light Medicine [employer] [facility]) TELE CONSULT [id number] Medicat ion refil. JOEL DARVIN M 10/27 [employer] [facility] [employer] [employer] (Flight Medicin e 22 MD[employer]) [employer] [employer](F light Medicine [employer] [facility]) OUTPATIENT [id number] F/U fatigue and shoulde r pain RAMANDEEPJULIÁN Bruce 12/11 Released with Work/Duty Limitations [employer] [facility] [employer] [employer] (Flight Medicin e [employer] [facility]) [facility] [place] [employer](P hysical Therapy) OUTPATIENT [id number] Rotator cuff tendoni tis, Botello Splints MONTENEGRO, TY 12/31 Released w/o Limitations [employer] [facility] [employer] [employer] (Physic al Therapy ) [employer] [place] [employer](D ietician (In-House )) OUTPATIENT [id number] Weight control BETTINA COWAN 01/01 Released w/o Limitations [employer] [facility] [employer] [employer] (Dietic kevin (In-Mundo)) [employer] [place] [employer](P hysical Therapy) OUTPATIENT [id number] MONTENEGRO, TY 01/26 Released w/o Limitations [employer] [facility] [employer] [employer] (Physic al Therapy ) [employer] [place] [employer](F light Medicine [employer] [facility]) OUTPATIENT [id number] Notes Entered by: PELON RADFORD 2011 0736 ------- ------- ------- ------- -- back pain SHENG CASAREZ 06/08 Released with Work/Duty Limitations [employer] [facility] [employer] [employer] (Flight Medicin e [employer] [facility]) [employer] [place] [employer]([facility]) OUTPATIENT [id number] POSt Walk-in ANA WELCHDenny 06/10 Released w/o Limitations [facility] [place], [place] [employer] ([facility]) [employer] [place] [employer](F light Medicine [employer] [facility]) OUTPATIENT [id number] Notes Entered by: Coby MITTAL 21 Jun 2011 1312 ------- ------- ------- ------- -- RTFS AMOS ORELLANA 06/20 Released w/o Limitations [facility] [place] [employer] (Flight Medicin e 22 MD[facility]) [employer] [place] [employer](F light Medicine [employer] [facility]) OUTPATIENT [id number] Notes Entered by: PELON RADFORD 22 Jun 2011 1031 ------- ------- ------- ------- -- Fly PHA RIMA LONGORIA 06/21 Released w/o Limitations [facility], [place] [employer] (Flight Medicin e 22 MD[facility]) [employer] [place] [employer](F light Medicine [employer] [facility]) OUTPATIENT [id number] Notes Entered by: PILAR FITZGERALD 28 Jun 2011 0804 ------- ------- ------- ------- -- Flu like sx; GI problem s FRANCOIS CHAVIS 06/27 Sick at Home/Quarter s [facility], [place] [employer] (Flight Medicin e 22 MD[facility]) [employer] [place] [employer](F light Medicine [employer] [facility]) OUTPATIENT [id number] Notes Entered by: SRAVAN SOTELO 12 Jul 2011 1258 ------- ------- ------- ------- -- RTFS SUKHJINDERTITOPatria Johnson 07/11 Released w/o Limitations [employer] [facility] [employer] [employer] (Flight Medicin e 22 [facility]) nd [employer] [place] [employer](F light Medicine [employer] [facility]) TELE CONSULT [id number] Notes Entered by: AAYUSH JACOBS 17 Aug 2011 1611 ------- ------- ------- ------- -- Medicat ion Refill POWER GUTIERREZ 08/16 Medication Refill [facility] [place] [employer] (Flight Medicin e [employer] [facility]) [employer] [place] [employer]F light Medicine [employer] [facility]) TELE CONSULT [id number] Notes Entered by: HAMZAH LONGORIA 19 Aug 2011 1059 ------- ------- ------- ------- -- Refill of zocor until appoint ment RIMA LONGORIA 08/18 [facility] [place] [employer] (Flight Medicin e 22 [facility]) [employer] [place] [employer](F light Medicine [employer] [facility]) OUTPATIENT [id number] LIUDMILA Rodriguez 08/31 Released w/o Limitations [employer] [facility] [employer] [employer] (Flight Medicin e 22 [facility]) [employer] [place] [employer](F light Medicine 22 [facility]) TELE CONSULT [id number] Notes Entered by: AAYUSH JACOBS 04 Oct 2011 1154 ------- ------- ------- ------- -- Medicat ion Refill POWER GUTIERREZ 10/03 Advice Assessment [employer] [facility] [employer] [employer] (Flight Medicin e 22 MD[facility]) [employer] [facility] [place] [employer](F light Medicine 22 [facility]) TELE CONSULT [id number] Notes Entered by: MARIELOS LANDIS 08 Oct 2011 1425 ------- ------- ------- ------- -- medicat ion refill POWER GUTIERREZ 10/07 Referred for Appointment [facility], [place] [employer] (Flight Medicin e 22 MDG) Medical Group Yin [facility] [employer]([facility]) OUTPATIENT [id number] predepl ASIM Doe 11/09 Released w/o Limitations [facility], [place] [employer] ([facility]) Medical Group Y[facility] [employer](F light Medicine 22 MDG) TELE CONSULT [id number] Notes Entered by: ELISEO ROSARIO 10 Nov 2011 1015 ------- ------- ------- ------- -- Med refill, clarify 2795. ELISEO TY 11/09 Medical Group [place] [employer] [place] [employer] ([facility] Medic[facility] [place] 22 MDG) Medical Group Humphrey [place] [employer]( ental Health 22 MDG) OUTPATIENT [id number] ALE Mccall 11/11 Released w/o Limitations Medical Group Aby [facility], [place] [employer] (Mental Health 22 MDG) [facility] OUTPATIENT [id number] 12/15 Released w/o Limitations [facility] OUTPATIENT [id number] 12/23 Released w/o Limitations [employer] [facility] [facility] OUTPATIENT [id number] 01/05 Released w/o Limitations [employer] [facility] OUTPATIENT [id number] 01/25 Released w/o Limitations [employer] [employer]([facility] 22 MDG) OUTPATIENT [id number] Knee Problem s NALDO CHAND 04/24 Released w/o Limitations [facility] [place] [employer] ([facility] Medicin [facility] 22 MDG) [employer] [place] [employer](F light Medicine 22 MDG) TELE CONSULT [id number] Notes Entered by: NALDO CHAND 28 Apr 2012 0755 ------- ------- ------- ------- -- POWER Enriquez 04/28 Advice Assessment [employer] [facility] [employer] ([facility] Medicin e 22 MDG) [employer] [facility])([facility] Flight Medicine ) OUTPATIENT [id number] left foot/li ttle toe throbbi ng, red, hurts to walk x 1 day [id number] ELAINE GUTIERREZ 06/30 Released w/o Limitations [employer] [facility])(S cott [employer] [facility] Tm) [employer] [facility])([facility] Flight Medicine ) TELE CONSULT [id number] Notes Entered by: CHRISTIAN GRIFFITH 03 Jul 2012 0919 ------- ------- ------- ------- -- CHRISTIAN Samson 07/03 Referred for Appointment [employer] [facility])(S cott [facility] Medic[facility] Tm) [facility] Medical Group [facility])([facility] Flight Medicine ) OUTPATIENT [id number] 37 yr old, orvier for meds, no glasses [phone] RASTA HODGE 07/14 Released w/o Limitations [employer] [facility])(S cott [facility] Medicin e Tm) [employer] [facility])([facility] Flight Medicine ) TELE CONSULT [id number] Notes Entered by: RASTA HODGE 17 Jul 2012 0929 ------- ------- ------- ------- -- results CHRISTIAN GRIFFITH 07/17 Referred for Appointment [employer] [facility])(S cott [facility] Medicin e Tm) [address] [place] [address])([facility] Flight Medicine ) TELE CONSULT [id number] Notes Entered by: MIGUELANGEL PICKARD 03 Aug 2012 1449 ------- ------- ------- ------- -- Network Results - PODIATR Y 3 TINY RANGEL 08/[address] [place] [address])(S [facility] Medic[facility] e Tm) [address] [place] [address])([facility] ) TELE CONSULT [id number] Notes Entered by: SILVESTRE COON 09 Aug 2012 0952 ------- ------- ------- ------- -- Network Results -OTORHI NOLARY 08/08/12 TINY RANGEL 08/[address] [place] [address])(S [facility] Medic[facility] Tm) [address] [place] [address])([facility] ) OUTPATIENT [id number] F/U lab and med refill [phone] ELAINE GUTIERREZ 08/10 Released w/o Limitations [address] [place] [address])(S Solutionary [facility] Medicin [facility] Tm) [address] [place] [address])(Dep [facility] Health Assessmen ts) OUTPATIENT [id number] Notes Entered by: GENE MELENDEZ 13 Sep 2012 1340 ------- ------- ------- ------- -- post AMBER Edward 09/13 Released w/o Limitations [address] [place] [address])([facility] Health Assessm ents) [address] [place] [address])([facility] Medicine ) TELE CONSULT [id number] Notes Entered by: SILVESTRE COON 04 Oct 2012 1533 ------- ------- ------- ------- -- Network Results -OTORHI NOLARYN GOLOGY 09/23/12 KIRIT TYLER R 10/04 [facility] Medical Group [facility])(S cott Flight Medicin e Tm) [address] [place] [address] Group [facility])([facility] Flight Medicine Tm) TELE CONSULT [id number] Notes Entered by: ELEANOR DE LA CRUZ 22 Dec 2012 1125 ------- ------- ------- ------- -- Network Results - Orthope dics 08/09/12 MARY BLOUNT 12/[address] [place] [address] Group [facility])(S cott Flight Medicin e Tm) [address] [place] [address])([facility] Flight Medicine Tm) TELE CONSULT [id number] Notes Entered by: SASCHA STATON 28 Dec 2012 0831 ------- ------- ------- ------- -- Multipl e sick symptom s/Matt /* TED WHARTON 12/28 [facility] Medical Group [facility])(S cott Flight Medicin e Tm) [address] [place] [address])([facility] Medicine ) OUTPATIENT [id number] Pt w/up-se t stomach , loose stool x2, and dry heeve after running . ELAINE GUTIERREZ 12/29 Released w/o Limitations [address] [place] [address])(S cott Flight Medicin e Tm) [address] [place] [address])([facility] Flight Medicine Tm) TELE CONSULT [id number] Notes Entered by: SASCHA STATON 01 Jan 2013 1550 ------- ------- ------- ------- -- Outside facilit y calling ext [phone]/CHRISTIAN Garcia 01/01 Referred for Appointment [address] [place] [address] Group [facility])(S cott Flight Medicin e Tm) [address] [place] [address])([facility] Flight Medicine Tm) TELE CONSULT [id number] Notes Entered by: CHRISTIAN GRIFFITH 10 Jan 2013 0737 ------- ------- ------- ------- -- CHRISTIAN Laurent 01/10 Referred for Appointment [address] [place] [address] Group [facility])(S cott Flight Medicin e Tm) [address] [place] [address])(War rior Op Med Cln Tm A Ad) TELE CONSULT [id number] Notes Entered by: NISH SORTO 19 Jan 2013 1251 ------- ------- ------- ------- -- ReferNISH Bates 01/19 Referred for Appointment [address] [place] [address] Group [facility])(W arrior Op Med Cln Tm A Ad) [address] [place] [address])(Mio tt Flight Medicine Tm) OUTPATIENT [id number] f/u shouldELAINE Leon 01/26 Released w/o Limitations [address] [place] [address])(S cott Flight Medicin e Tm) [address] [place] [address])(Mio tt Flight Medicine Tm) TELE CONSULT [id number] Notes Entered by: NEVA PATEL 30 Jan 2013 0928 ------- ------- ------- ------- -- Updated chino Gutierrez/ TED WHARTON 01/[address] [place] [address] Group [facility])(S cott Flight Medicin e Tm) [facility] Medical [facility])(Mio tt Flight Medicine Tm) OUTPATIENT [id number] Notes Entered by: Gudelia MAGUIRE 28 Mar 2013 0809 ------- ------- ------- ------- -- JOY PENALOZA 03/28 Released w/o Limitations [address] [place] [address])(S cott Flight Medicin e Tm) [address] [place] [address])(Sco tt Flight Medicine Tm) OUTPATIENT [id number] sinus and foot problem s [phone] ELAINE GUTIERREZ 05/03 Released w/o Limitations [facility] Medical Group [employer] [facility])(S cott Flight Medicin e Tm) [facility] Medical [facility] [employer] [facility])([facility] tt Flight Medicine Tm) OUTPATIENT [id number] henna NISH SORTO VIRGIL 06/21 Sick at Home/Quarter s [facility] Medical Group [employer] [facility])(S cott Flight Medicin e Tm) [facility] Medical Group [employer] [facility])([facility] tt Flight Medicine Tm) OUTPATIENT [id number] f/u appt SONNY MERCEDES 06/25 Released w/o Limitations [address] [place] [address] Group [employer] [facility])(S cott Flight Medicin e Tm) [address] [place], [place] [address]B [facility])([facility] Flight Medicine Tm) OUTPATIENT [id number] f/u JOY Argueta 07/10 Released w/o Limitations [address] [place] [address] Group [employer] [facility])(S cott Flight Medicin e Tm) [address] [place] [address] Group [employer] [facility])([facility] Flight Medicine Tm) TELE CONSULT [id number] Notes Entered by: ARELI ARCHULETA 23 Jul 2013 1328 ------- ------- ------- ------- -- Pt reromeo/juanjose id/316. [phone] 5/[facility] RANDALL ENRIQUE 07/[address] [place] [address] Group [employer] [facility])(S cott Flight Medicin e Tm) [address] [place] [address] [employer] [facility])([facility] Flight Medicine Tm) OUTPATIENT [id number] no waivers , no glasses or contact s [phone] SONNY MERCEDES 08/08 Released w/o Limitations [address] [place] [address] Group [employer] ([facility])(S cott Flight Medicin e Tm) [address] [place] [address] [employer] [facility])([facility] Flight Medicine Tm) TELE CONSULT [id number] Notes Entered by: CAESAR PIMENTEL 13 Aug 2013 1511 ------- ------- ------- ------- -- Annual Audiogr am MARY BLOUNT 08/[address] [place] [address])(S Solutionary Flight Medicin e Tm) [address] [place] [address])(Dep [facility] Assessmen ts) OUTPATIENT [id number] DHA4 BARB MACEDO 08/23 Released w/o Limitations [address] [place] [address])([facility] Health Assess ents) [address] [place] [address])([facility] Flight Medicine ) TELE CONSULT [id number] Notes Entered by: ABNER SANDOVAL 24 Sep 2013 0901 ------- ------- ------- ------- -- Sx head congest ion, sore throat Sajid [phone] 1 DUSTIN DAUGHERTY 09/[address] [place] [address])( Solutionary Flight Medicin e Tm) [address] [place] [address])([facility] Medicine ) OUTPATIENT [id number] congest ion, sinus pressur e, brown mucus, STEPHANIE BATRES 09/27 Released w/o Limitations [address] [place] [address])(S Solution[facility] Flight Medicin e Tm) [address] [place] [address])([facility] ) TELE CONSULT [id number] Notes Entered by: AMOS BRYANT 08 Oct 2013 0832 ------- ------- ------- ------- -- Network results - Podiatr y - 4 SONNY MERCEDES 10/[address] [place] [address])(S Solutionary Flight Medicin e Tm) [address] [place] [address])([facility] ) OUTPATIENT [id number] Request ing second opinion sleep apnea referra l [id number] MARY BLOUNT 10/24 Released w/o Limitations [address] [place] [address])(S [facility] Flight Medicin e Tm) [address] [place] [address])([facility] ) TELE CONSULT [id number] Notes Entered by: GOLDEN MADRIGAL 02 Nov 2013 0755 ------- ------- ------- ------- -- Sleep Apnea DUSTIN Shipley 11/[address] [place] [address])(S cott Flight Medicin e Tm) [address] [place] [address])([facility] ) TELE CONSULT [id number] Notes Entered by: AMOS BRYANT 05 Nov 2013 1518 ------- ------- ------- ------- -- Network results - Podiatr y - 014 SONNY MERCEDES 11/[address] [place] [address])(S [facility] Flight Medicin e Tm) [address] [place] [address])([facility] ) TELE CONSULT [id number] Notes Entered by: ABNER SNADOVAL 14 Jan 2014 1255 ------- ------- ------- ------- -- Issue Chino hughes [phone] 1 DUSTIN DAUGHERTY 01/[address] [place] [address])(S [facility] Flight Medicin e Tm) [address] [place] [address])([facility] ) TELE CONSULT [id number] Notes Entered by: AMOS BRYANT 15 Jan 2014 1310 ------- ------- ------- ------- -- Network results - Pulmona ry/Slee p Medicin e 014 CINTHIA VEGAS 01/[address] [place] [address])(S cott Flight Medicin e Tm) [address] [place] [address])([facility] ) OUTPATIENT [id number] acid reflex [id number] CINTHIA VEGAS 03/08 Released w/o Limitations [address] [place] [address])(S cott Flight Medicin e Tm) Medical Group [place] ([facility])(Phy sical Therapy) OUTPATIENT [id number] ESOPHAG EAL REFLUX HAMILTON NEWTON 03/26 Released w/o Limitations [facility] Group [place] ([facility])(P hysical Therapy ) [address] [place] [address])([facility] tt Flight Medicine Tm) OUTPATIENT [id number] sore knees// 220.752 1 JOY BANERJEE 03/28 Released w/o Limitations [facility] Group [facility])(S cott Flight Medicin e Tm) [address] [place] [address] Group [facility])(Phy sical Therapy) OUTPATIENT [id number] RONA Miranda 04/08 Released w/o Limitations [facility] Group [place] ([facility])(P hysical Therapy ) [address] [place] [address])([facility] Flight Medicine ) TELE CONSULT [id number] Notes Entered by: DARIEL ARCHULETA 01 May 2014 1001 ------- ------- ------- ------- -- Network Results -GASTRO ENTEROL OGY 04/30/14 CINTHIA VEGAS 05/[address] [place] [address] Group [facility])(S [facility] Flight Medicin e Tm) [address] [place] [address])([facility] Flight Medicine ) TELE CONSULT [id number] Notes Entered by: AMOS BRYANT 03 May 2014 1619 ------- ------- ------- ------- -- Network results - Gastroe nterolo gy 015 CINTHIA VEGAS 05/[address] [place] [address] Group [facility])(S cott Flight Medicin e Tm) [address] [place] [address])([facility] Flight Medicine Tm) OUTPATIENT [id number] back pain flare up MONIQUE THOMPSON 05/30 Released w/o Limitations [address] [place] [address])(S cott Flight Medicin e Tm) [address] [place] [address])([facility] tt Flight Medicine Tm) OUTPATIENT [id number] pain in left shoulde r [phone] CINTHIA VEGAS 06/04 Released w/o Limitations [address] [place] [address])(S cott Flight Medicin e Tm) [address] [place] [address])([facility] Flight Medicine ) TELE CONSULT [id number] Notes Entered by: SASCHA STATON 11 Jun 2014 1409 ------- ------- ------- ------- -- Med refill/ benjamin hughes/220.7 521 or RANDALL ENRIQUE 06/[address] [place] [address])(S cott Flight Medicin e Tm) [address] [place] [address])([facility] Flight Medicine ) TELE CONSULT [id number] Notes Entered by: Bruce FISHER 13 Jun 2014 0848 ------- ------- ------- ------- -- F/u Shoulde r and neck problem Benjamin hughes 220.752 1 CHRISTIAN GRIFFITH 06/13 Referred for Appointment [address] [place] [address])(S cott Flight Medicin e Tm) [address] [place] [address])([facility] Flight Medicine ) TELE CONSULT [id number] Notes Entered by: DARIEL ARCHULETA 13 Jun 2014 1444 ------- ------- ------- ------- -- Network Results -GASTRO ENTEROL OGY 06/10/14 CINTHIA VEGAS 06/[address] [place] [address])(S cott Flight Medicin e Tm) [address] [place] [address])([facility] Flight Medicine ) TELE CONSULT [id number] Notes Entered by: SWATI THOMPSON 13 Jun 2014 1851 ------- ------- ------- ------- -- Radiolo gy Results KIMSWATI NAVASLINE E 06/[address] [place] [address])(S [employer] Medicin e Tm) [address] [place] [address])([facility] Medicine ) TELE CONSULT [id number] Notes Entered by: SWATI THOMPSON E 19 Jun 2014 1318 ------- ------- ------- ------- -- MRI Results DONNA MONIQUE E 06/[address] [place] [address])(S [employer] Medicin e Tm) [address] [place] [address])([facility] Medicine ) TELE CONSULT [id number] Notes Entered by: SILVESTRE COON 12 Jul 2014 1200 ------- ------- ------- ------- -- Network Results -SURGER Y 07/11/14 CINTHIA VEGAS 07/[address] [place] [address])( [employer] Medicin e Tm) [address] [place] [address])([facility] Medicine ) TELE CONSULT [id number] Notes Entered by: PETROS MARSHALL 17 Jul 2014 1248 ------- ------- ------- ------- -- Physica l therapy referra l needed. 220.752 1 DUSTIN DAUGHERTY 07/[address] [place] [address])(S [employer] Medicin e Tm) [address] [place] [address])([facility] Medicine ) TELE CONSULT [id number] Notes Entered by: AMOS BRYANT 22 Jul 2014 1451 ------- ------- ------- ------- -- Network results - Pulmona ry/Slee p Medicin e 014 CINTHIA VEGAS 07/[address] [place] [address])(S cott Flight Medicin e Tm) [address] [place] [address] Group [employer] [facility])([facility] tt Flight Medicine Tm) OUTPATIENT [id number] Notes Entered by: LUPE HARMON 06 Aug 2014 0838 ------- ------- ------- ------- -- Possibl e NATALEE Chinchilla 08/06 Released w/o Limitations [facility] [employer] ([facility])(S cott Flight Medicin e Tm) [address] [place] [address] [employer] [facility])(Phy sical Therapy) OUTPATIENT [id number] CERVICA L RADICUL OPAHAMILTON GARZA 08/06 Released w/o Limitations [address] [place] [address] Group [employer] ([facility])(P hysical Therapy ) [address] [place] [address] Tai [facility])(Phy sical Therapy) OUTPATIENT [id number] neck TRINA BETH 08/13 Released w/o Limitations [facility] [employer] [facility])(P hysical Therapy ) [address] [place] [address] [employer] [facility])([facility] Flight Medicine ) OUTPATIENT [id number] head congest ion/ sore throatt , ear pain/22 0.7521 DEVEN BOTELLO 08/15 Released w/o Limitations [address] [place] [address] [employer] ([facility])(S cott Flight Medicin e Tm) [address] [place] [address] [employer] ([facility])(Phy sical Therapy) OUTPATIENT [id number] TRINA BETH 08/20 Released w/o Limitations [address] [place] [address] [employer] [facility])(P hysical Therapy ) [address] [place], [place] [address] [facility])([facility] tt Flight Medicine Tm) TELE CONSULT [id number] Notes Entered by: NEVA PATEL 30 Aug 2014 0854 ------- ------- ------- ------- -- Medicat ion refill/ Benjamin f/ 220-841 1 DUSTIN DAUGHERTY 08/30[facility] [employer] [facility])(S cott Flight Medicin e Tm) [address] [place], [place] [address] [facility])(Sco tt Flight Medicine Tm) OUTPATIENT [id number] nail area on left thumb infecte d with dischar ge-618- 220-752 1 DEVEN BOTELLO 09/02 Released w/o Limitations Medical Group [employer] ([facility])(S Solutionary Flight Medicin e Tm) [facility] Medical Group [employer] ([facility])(Phy sical Therapy) OUTPATIENT [id number] neck HAMILTON NEWTON 09/03 Released w/o Limitations Medical Group [employer] ([facility])(P hysical Therapy ) [facility] Medical Group [employer] [facility])([facility] Flight Medicine ) OUTPATIENT [id number] f/u disc in neck//2 20.7521 MONIQUE THOMPSON 09/10 Released with Work/Duty Limitations Medical Group [employer] ([facility])(S Solutionary Flight Medicin e Tm) [facility] Medical [facility] [employer] ([facility])(Phy sical Therapy) OUTPATIENT [id number] neck TRINA BETH 09/13 Released w/o Limitations Medical Group [employer] ([facility])(P hysical Therapy ) [facility] Medical [facility] [employer] [facility])(Phy sical Therapy) OUTPATIENT [id number] neck TRINA BETH 09/17 Released w/o Limitations [facility] Medical Group [employer] ([facility])(P hysical Therapy ) [address] [place] [address] [employer] [facility])(Phy sical Therapy) OUTPATIENT [id number] TRINA Monae 09/20 Released w/o Limitations [facility] Medical Group [employer] ([facility])(P hysical Therapy ) [address] [place] [address] [employer] [facility])(Dep [facility] Health Assessmen ts) OUTPATIENT [id number] PRIORIT Y DHA #5 TIFFANIE ADAMS 09/30 Released w/o Limitations Medical Group [employer] ([facility])([facility]) [address] [place] [address] [employer] [facility])([facility] Flight Medicine Tm) TELE CONSULT [id number] Notes Entered by: Bert VERA 30 Sep 2014 1621 ------- ------- ------- ------- -- Asimt y JOY Stapleton 09/[address] [place] [address] Group [employer] [facility])(S cott Flight Medicin e Tm) [address] [place] [address] [employer] [facility])(Phy sical Therapy) OUTPATIENT [id number] neck TRINA BETH 10/02 Released w/o Limitations [address] [place] [address] [employer] ([facility])(P hysical Therapy ) [address] [place] [address] [employer] [facility])(Phy sical Therapy) OUTPATIENT [id number] neck HAMILTON NEWTON 10/04 Released w/o Limitations [address] [place] [address] Group [employer] ([facility])(P hysical Therapy ) [address] [place] [address] [employer] [facility])(Phy sical Therapy) OUTPATIENT [id number] neck HAMILTON NEWTON 10/16 Released w/o Limitations [address] [place] [address] [employer] ([facility])(P hysical Therapy ) [address] [place] [address] Tai B [facility])([facility] tt Flight Medicine Tm) OUTPATIENT [id number] 39 y/o male, glasses -no, wx-yes 220.752 1 MARY BLOUNT 11/13 Released w/o Limitations [address] [place] [address] [employer] [facility])(S cott Flight Medicin e Tm) [address] [place] [address] [facility] tt Flight Medicine Tm) TELE CONSULT [id number] Notes Entered by: Tramaine BLOUNT 14 Nov 2014 1529 ------- ------- ------- ------- -- AJIT Aquino 11/[address] [facility] Medical [facility]S cott [facility] Medic[facility] Tm) [facility] Medical [facility])([facility] tt Flight Medicine Tm) OUTPATIENT [id number] Feet and knees / sinus issues [id number] MARY BLOUNT 01/02 Released w/o Limitations [address] [place] [address] [facility]S cott [facility] Medicin [facility] Tm) [address] [place] [address] [facility] tt Flight Medicine Tm) TELE CONSULT [id number] Notes Entered by: Tramaine BLOUNT 08 Jan 2015 1040 ------- ------- ------- ------- -- Ct results MARY BLOUNT 01/[address] [place] [address] [employer] ([facility])(S cott Flight Medicin e Tm) [address] [place] [address] [employer] ([facility])(Phy sical Therapy) OUTPATIENT [id number] Joint pain in both wrists, ASHVIN CHASE 01/14 Released w/o Limitations [address] [place] [address] [employer] ([facility])(P hysical Therapy ) [address] [place] [address] [employer] ([facility])(Phy sical Therapy) OUTPATIENT [id number] degener ative disk pain neck and bilater al wrists HAMILTON NEWTON 01/15 Released w/o Limitations [address] [place] [address] [employer] ([facility])(P hysical Therapy ) [address] [place] [address] [employer] ([facility])(Phy sical Therapy) OUTPATIENT [id number] neck and bilater al wrist pain HAMILTON NEWTON 01/16 Released w/o Limitations [address] [place] [address] [employer] ([facility])(P hysical Therapy ) [address] [place] [address] [employer] ([facility])(Phy sical Therapy) OUTPATIENT [id number] neck and bilater al wrist pain HAMILTON NEWTON 01/24 Released w/o Limitations [address] [place] [address] [employer] ([facility])(P hysical Therapy ) [address] [place] [address] [employer] ([facility])(Phy sical Therapy) OUTPATIENT [id number] neck and bilater al wrist pain ASHVIN CHASE 01/29 Released w/o Limitations [address] [place] [address] [employer] ([facility])(P hysical Therapy ) [address] [place] [address] [employer] ([facility])(Phy sical Therapy) OUTPATIENT [id number] neck and bilater al wrist pain ARMIDA BROWN 01/31 Released w/o Limitations [address] [place] [address] [employer] ([facility])(P hysical Therapy ) [address] [place] [address] [employer] ([facility])(Sco tt Flight Medicine Tm) OUTPATIENT [id number] f/u for degener tive disk in neck [id number] MARY BLOUNT 03/10 Released w/o Limitations [address] [place] [address])(S cott Flight Medicin e Tm) [address] [place] [address])([facility] Flight Medicine Tm) TELE CONSULT [id number] Notes Entered by: SONNY COTTO 21 Mar 2015 1534 ------- ------- ------- ------- -- Med Renewal s / Blount / [phone] MARY BLOUNT 03/[address] [place] [address])(S cott Flight Medicin e Tm) [address] [place] [address])([facility] Flight Medicine Tm) TELE CONSULT [id number] Notes Entered by: TIMO DAUGHERTY 24 Mar 2015 1611 ------- ------- ------- ------- -- Non formula ry request DUSTIN DAUGHERTY 03/[address] [place] [address])(S cott Flight Medicin e Tm) [address] [place] [address])([facility] Flight Medicine ) TELE CONSULT [id number] Notes Entered by: Vicente FISHER 04 Jun 2015 0843 ------- ------- ------- ------- -- Sx cough,n jarocho and chest congest yolanda vo ts to talk with nurse and med refill/ [place] JHON JAY 06/04 Advice Assessment [address] [place] [address])([facility] cott [facility] Medic[facility] Tm) [address] [place] [address])([facility] Flight Medicine ) TELE CONSULT [id number] Notes Entered by: Vicente FISHER 15 Jul 2015 1404 ------- ------- ------- ------- -- Med renewal /[place]/ [phone] or [phone] TINY MCCALLUM 07/14 Referred for Appointment [address] [place] [address])([facility] cott [facility]m) [address] [place] [address])([facility] Flight Medicine ) TELE CONSULT [id number] Notes Entered by: SONNY COTTO 25 Jul 2015 0819 ------- ------- ------- ------- -- Referra badillo Request / [place] / [phone] / DUSTIN DAUGHERTY 07/[address] [place] [address])([facility] cott [facility] Medic[facility] Tm) [address] [place] [address])([facility] Flight Medicine ) TELE CONSULT [id number] Notes Entered by: BARBARA QURESHI 07 Aug 2015 1236 ------- ------- ------- ------- -- Sx - Nasal Congest ion/Raygoza ne/220. [phone] DUSTIN DAUGHERTY 08/[address] [place] [address])([facility] cott [facility]) [address] [place] [address])([facility] Flight Medicine ) OUTPATIENT [id number] f/u sinuses IVORY QUACH E 08/14 Released w/o Limitations [address] [place] [address])([facility] cott [facility] Tm) [address] [place] [address])([facility] Flight Medicine ) OUTPATIENT [id number] knot in back, pain in both feet MONIQUE THOMPSON E 09/22 Released w/o Limitations [address] [place] [address])([facility] cott [facility] Tm) [address] [place] [address])([facility]) TELE CONSULT [id number] Notes Entered by: ADRIEL BHATT 06 Oct 2015 1511 ------- ------- ------- ------- -- GETACHEW IBARRA [facility] Please sign. NOVA SANDHYA Ashlyn 10/[address] [place] [address] [facility])([facility]) [address] [place] [address])([facility] Flight Medicine ) TELE CONSULT [id number] Notes Entered by: BARBARA QURESHI 28 Oct 2015 0856 ------- ------- ------- ------- -- Med Renewal /Summer s/ KELSEY HANDLEY 10/27 [facility] Medical Group [facility])(S cott Flight Medicin [facility] Tm) [address] [place] [address] Group [facility])([facility] Flight Medicine Tm) OUTPATIENT [id number] Medicat ion - [facility] jean [id number] KELSEY HANDLEY 11/11 Released w/o Limitations [address] [place] [address] Group [facility])(S Solutionary Flight Medicin e Tm) [address] [place] [address] Group [facility])([facility] Flight Medicine Tm) TELE CONSULT [id number] Notes Entered by: ABELARDO DURAND 12 May 2016 0851 ------- ------- ------- ------- -- Network Results Podiatr y 7 ND IVORY QUACH 05/[address] [place] [address] Group [place] ([facility])(S Solutionary Flight Medicin [facility] Tm) [facility] Outpatient Encounter [id number] 05/26 [facility] Outpatient Encounter [id number] 05/26 [facility] Outpatient Encounter [id number] 07/18 [facility] Outpatient Encounter [id number] 08/04 [facility] Outpatient Encounter [id number] 08/23 [facility] Outpatient Encounter [id number] 09/[facility] Outpatient Encounter [id number] 02/12 [facility] Outpatient Encounter [id number] Anais ANSARI 08/01 [facility] Outpatient Encounter [id number] 08/03 [facility] OFFICE O/P NEW MOD 45 MIN [id number] Diagnos is: ICD-10- CM G47.30 Sleep apnea, unspeci fied SERENE HAYES 08/03 [facility] Procedures Combined list of: 1) Procedures from Department of Veterans Affairs facilities going back up to thelast 18 months, not all VA non-surgical procedures are included; 2) All procedures from the Department of Defense facilities. Procedure Procedure Type Code Date Perfomer Comments Sourvicente e ELECTROCARDIOGRAM, ROUTINE ECG WITH AT LEAST 12 LEADS; WITH INTERPRETATION AND REPORT 2008 [facility] PSYCHIATRIC EVALUATION OF HOSPITAL RECORDS, OTHER PSYCHIATRIC REPORTS, PSYCHOMETRIC AND/OR PROJECTIVE TESTS, AND OTHER ACCUMULATED DATA FOR MEDICALDIAGNOSTIC PURPOSES 2007 [facility] INDIVIDUAL PSYCHOTHERAPY, INSIGHT ORIENTED, BEHAVIOR MODIFYING AND/OR SUPPORTIVE, IN AN OFFICE OR OUTPATIENT FACILITY, APPROXIMATELY 45 TO 50 MINUTES [id number] WITH THE PATIENT 2006 [facility] PSYCHIATRIC EVALUATION OF HOSPITAL RECORDS, OTHER PSYCHIATRIC REPORTS, PSYCHOMETRIC AND/OR PROJECTIVE TESTS, AND OTHER ACCUMULATED DATA FOR MEDICALDIAGNOSTIC PURPOSES 2006 [facility] INDIVIDUAL PSYCHOTHERAPY, INSIGHT ORIENTED, BEHAVIOR MODIFYING AND/OR SUPPORTIVE, IN AN OFFICE OR OUTPATIENT FACILITY, APPROXIMATELY 45 TO 50 MINUTES [id number] WITH THE PATIENT 2006 [facility] INDIVIDUAL PSYCHOTHERAPY, INSIGHT ORIENTED, BEHAVIOR MODIFYING AND/OR SUPPORTIVE, IN AN OFFICE OR OUTPATIENT FACILITY, APPROXIMATELY 45 TO 50 MINUTES [id number] WITH THE PATIENT 2005 [facility] INDIVIDUAL PSYCHOTHERAPY, INSIGHT ORIENTED, BEHAVIOR MODIFYING AND/OR SUPPORTIVE, IN AN OFFICE OR OUTPATIENT FACILITY, APPROXIMATELY 45 TO 50 MINUTES [id number] WITH THE PATIENT 2005 [facility] INDIVIDUAL PSYCHOTHERAPY, INSIGHT ORIENTED, BEHAVIOR MODIFYING AND/OR SUPPORTIVE, IN AN OFFICE OR OUTPATIENT FACILITY, APPROXIMATELY 45 TO 50 MINUTES [id number] WITH THE PATIENT 2005 [facility] INDIVIDUAL PSYCHOTHERAPY, INSIGHT ORIENTED, BEHAVIOR MODIFYING AND/OR SUPPORTIVE, IN AN OFFICE OR OUTPATIENT FACILITY, APPROXIMATELY 45 TO 50 MINUTES [id number] WITH THE PATIENT 2005 [facility] INDIVIDUAL PSYCHOTHERAPY, INSIGHT ORIENTED, BEHAVIOR MODIFYING AND/OR SUPPORTIVE, IN AN OFFICE OR OUTPATIENT FACILITY, APPROXIMATELY 45 TO 50 MINUTES [id number] WITH THE PATIENT 2005 [facility] INDIVIDUAL PSYCHOTHERAPY, INSIGHT ORIENTED, BEHAVIOR MODIFYING AND/OR SUPPORTIVE, IN AN OFFICE OR OUTPATIENT FACILITY, APPROXIMATELY 45 TO 50 MINUTES [id number] WITH THE PATIENT 2005 [facility] PSYCHIATRIC DIAGNOSTIC INTERVIEW EXAMINATION 2005 [facility] ELECTROCARDIOGRAM, ROUTINE ECG WITH AT LEAST 12 LEADS; INTERPRETATION AND REPORT ONLY 2004 [facility] CULTURE, PRESUMPTIVE, PATHOGENIC ORGANISMS, SCREENING ONLY 2003 [facility] ANESTHESIA FOR PROCEDURES ON MALE GENITALIA (INCLUDING OPEN URETHRAL PROCEDURES); VASECTOMY, UNILATERAL/BILATERAL 2002 [facility] TOBACCO COUNSELING 2001 [facility] ESOPHAGUS, ACID REFLUX TEST, WITH INTRALUMINAL PH ELECTRODE FOR DETECTION OF GASTROESOPHAGEAL REFLUX; 1999 [facility] PSYCHIATRIC EVALUATION OF HOSPITAL RECORDS, OTHER PSYCHIATRIC REPORTS, PSYCHOMETRIC AND/OR PROJECTIVE TESTS, AND OTHER ACCUMULATED DATA FOR MEDICALDIAGNOSTIC PURPOSES 2012 [facility] INDIVIDUAL PSYCHOTHERAPY, INSIGHT ORIENTED, BEHAVIOR MODIFYING AND/OR SUPPORTIVE, IN AN OFFICE OR OUTPATIENT FACILITY, APPROXIMATELY 45 TO 50 MINUTES [id number] WITH THE PATIENT 2011 [facility] NEUROPSYCHOLOGICAL TESTING (EG, [place] CARD SORTING TEST), ADMINISTERED BY A COMPUTER, WITH QUALIFIED HEALTH BOX INSPECTOR INTERPRETATION AND REPORT 2011 [facility] INDIVIDUAL PSYCHOTHERAPY, INSIGHT ORIENTED, BEHAVIOR MODIFYING AND/OR SUPPORTIVE, IN AN OFFICE OR OUTPATIENT FACILITY, APPROXIMATELY 75 TO 80 MINUTES [id number] WITH THE PATIENT 2011 [facility] INDIVIDUAL PSYCHOTHERAPY, INSIGHT ORIENTED, BEHAVIOR MODIFYING AND/OR SUPPORTIVE, IN AN OFFICE OR OUTPATIENT FACILITY, APPROXIMATELY 45 TO 50 MINUTES [id number] WITH THE PATIENT 2011 [facility] INDIVIDUAL PSYCHOTHERAPY, INSIGHT ORIENTED, BEHAVIOR MODIFYING AND/OR SUPPORTIVE, IN AN OFFICE OR OUTPATIENT FACILITY, APPROXIMATELY 45 TO 50 MINUTES [id number] WITH THE PATIENT 2011 [facility] INDIVIDUAL PSYCHOTHERAPY, INSIGHT ORIENTED, BEHAVIOR MODIFYING AND/OR SUPPORTIVE, IN AN OFFICE OR OUTPATIENT FACILITY, APPROXIMATELY 45 TO 50 MINUTES [id number] WITH THE PATIENT 2011 [facility] INDIVIDUAL PSYCHOTHERAPY, INSIGHT ORIENTED, BEHAVIOR MODIFYING AND/OR SUPPORTIVE, IN AN OFFICE OR OUTPATIENT FACILITY, APPROXIMATELY 45 TO 50 MINUTES [id number] WITH THE PATIENT 2011 [facility] PSYCHIATRIC DIAGNOSTIC INTERVIEW EXAMINATION 2011 [facility] VIS FUNCT SCREEN,AUTOMAT/SEMI- AUTOMAT BILAT QUANT DETERM VISUAL ACUITY,OCULAR ALIGN,COLOR VISION,PSEUDOISOCHRO MAT PLATES,& FIELD VIS (MAY INC ALL/SOME SCRN DETERM FOR CONTRAST SENSITIV,VIS UND GLARE) 2011 [facility] THERAPEUTIC PROCEDURE, 1 OR MORE AREAS, EACH 15 MINUTES; THERAPEUTIC EXERCISES TO DEVELOP STRENGTH AND ENDURANCE, RANGE OF MOTION AND FLEXIBILITY 2010 [facility] MEDICAL NUTRITION THERAPY; INITIAL ASSESSMENT AND INTERVENTION, INDIVIDUAL, [id number] WITH THE PATIENT, EACH 15 MINUTES 2010 [facility] THERAPEUTIC PROCEDURE, 1 OR MORE AREAS, EACH 15 MINUTES; THERAPEUTIC EXERCISES TO DEVELOP STRENGTH AND ENDURANCE, RANGE OF MOTION AND FLEXIBILITY 2010 [facility] PSYCHIATRIC EVALUATION OF HOSPITAL RECORDS, OTHER PSYCHIATRIC REPORTS, PSYCHOMETRIC AND/OR PROJECTIVE TESTS, AND OTHER ACCUMULATED DATA FOR MEDICALDIAGNOSTIC PURPOSES 2010 [facility] SCREENING TEST OF VISUAL ACUITY, QUANTITATIVE, BILATERAL 2010 [facility] NEUROPSYCHOLOGICAL TESTING (EG, [place] CARD SORTING TEST), ADMINISTERED BY A COMPUTER, WITH QUALIFIED HEALTH BOX INSPECTOR INTERPRETATION AND REPORT 2009 [facility] PURE TONE AUDIOMETRY (THRESHOLD); AIR ONLY 2007 [facility] MEDICAL NUTRITION THERAPY; INITIAL ASSESSMENT AND INTERVENTION, INDIVIDUAL, [id number] WITH THE PATIENT, EACH 15 MINUTES 2007 [facility] PSYCHIATRIC EVALUATION OF HOSPITAL RECORDS, OTHER PSYCHIATRIC REPORTS, PSYCHOMETRIC AND/OR PROJECTIVE TESTS, AND OTHER ACCUMULATED DATA FOR MEDICALDIAGNOSTIC PURPOSES 2017 [facility] PSYCHOTHERAPY, 45 MINUTES WITH PATIENT 2016 [facility] PSYCHOTHERAPY, 60 MINUTES WITH PATIENT 2016 [facility] PSYCHOTHERAPY, 60 MINUTES WITH PATIENT 2016 [facility] PSYCHOTHERAPY, 60 MINUTES WITH PATIENT 2016 [facility] PSYCHOTHERAPY, 60 MINUTES WITH PATIENT 2016 [facility] PSYCHOTHERAPY, 60 MINUTES WITH PATIENT 2016 [facility] PSYCHOTHERAPY, 60 MINUTES WITH PATIENT 2016 [facility] PSYCHOTHERAPY, 60 MINUTES WITH PATIENT 2016 [facility] PREPARATION OF REPORT OF PATIENT'S PSYCHIATRIC STATUS, HISTORY, TREATMENT, OR PROGRESS (OTHER THAN FOR LEGAL OR CONSULTATIVE PURPOSES) FOR OTHER INDIVIDUALS, AGENCIES, OR INSURANCE CARRIERS 2016 [facility] PSYCHOTHERAPY, 45 MINUTES WITH PATIENT 2016 [facility] PSYCHOTHERAPY, 60 MINUTES WITH PATIENT 2016 [facility] PSYCHOTHERAPY, 60 MINUTES WITH PATIENT 2016 [facility] PSYCHOTHERAPY, 45 MINUTES WITH PATIENT 2015 [facility] PSYCHOTHERAPY, 60 MINUTES WITH PATIENT 2015 [facility] PSYCHOTHERAPY, 60 MINUTES WITH PATIENT 2015 [facility] PSYCHOTHERAPY, 60 MINUTES WITH PATIENT 2015 [facility] PSYCHOTHERAPY, 60 MINUTES WITH PATIENT 2015 [facility] PSYCHOTHERAPY, 60 MINUTES WITH PATIENT 2015 [facility] PSYCHOTHERAPY, 45 MINUTES WITH PATIENT 2015 [facility] PSYCHOTHERAPY, 60 MINUTES WITH PATIENT 2015 [facility] PSYCHOTHERAPY, 60 MINUTES WITH PATIENT 2015 [facility] PSYCHOTHERAPY, 60 MINUTES WITH PATIENT 2015 [facility] PSYCHOTHERAPY, 60 MINUTES WITH PATIENT 2015 [facility] PSYCHOTHERAPY, 60 MINUTES WITH PATIENT 2015 [facility] PSYCHOTHERAPY, 60 MINUTES WITH PATIENT 2015 [facility] PSYCHOTHERAPY, 60 MINUTES WITH PATIENT 2015 [facility] PSYCHOTHERAPY, 60 MINUTES WITH PATIENT 2015 [facility] TELE ASSESS & MGT SRV PROV QUAL NONPHYS HLTH CARE PRO TO EST PAT,PARENT,GUARD NOT ORIG REL ASSESS & MGT SRV PROV W/IN PREV 7 DAYS NOR LEAD ASSESS & MGT SRV/PX W/IN NXT 24 HR/SOON APT;5-10 MIN MED DIS 2015 [facility] PSYCHOTHERAPY, 60 MINUTES WITH PATIENT 2015 [facility] PSYCHOTHERAPY, 60 MINUTES WITH PATIENT 2015 DoD TELE ASSESS & MGT SRV PROV QUAL NONPHYS HLTH CARE PRO TO EST PAT,PARENT,GUARD NOT ORIG REL ASSESS & MGT SRV PROV W/IN PREV 7 DAYS NOR LEAD ASSESS & MGT SRV/PX W/IN NXT 24 HR/SOON APT;5-10 MIN MED DIS 2015 [facility] PSYCHIATRIC DIAGNOSTIC EVALUATION 2015 DoD TELE ASSESS & MGT SRV PROV QUAL NONPHYS HLTH CARE PRO TO EST PAT,PARENT,GUARD NOT ORIG REL ASSESS & MGT SRV PROV W/IN PREV 7 DAYS NOR LEAD ASSESS & MGT SRV/PX W/IN NXT 24 HR/SOON APT;5-10 MIN MED DIS 2015 DoD TELE ASSESS & MGT SRV PROV QUAL NONPHYS HLTH CARE PRO TO EST PAT,PARENT,GUARD NOT ORIG REL ASSESS & MGT SRV PROV W/IN PREV 7 DAYS NOR LEAD ASSESS & MGT SRV/PX W/IN NXT 24 HR/SOON APT;5-10 MIN MED DIS 2014 Do[facility] TELE ASSESS & MGT SRV PROV QUAL NONPHYS HLTH CARE PRO TO EST PAT,PARENT,GUARD NOT ORIG REL ASSESS & MGT SRV PROV W/IN PREV 7 DAYS NOR LEAD ASSESS & MGT SRV/PX W/IN NXT 24 HR/SOON APT;5-10 MIN MED DIS 2014 [facility] APPLICATION OF A MODALITY TO 1 OR MORE AREAS; ULTRASOUND, EACH 15 MINUTES 2014 [facility] APPLICATION OF A MODALITY TO 1 OR MORE AREAS; ULTRASOUND, EACH 15 MINUTES 2014 [facility] APPLICATION OF A MODALITY TO 1 OR MORE AREAS; TRACTION, MECHANICAL 2014 DoD APPLICATION OF A MODALITY TO 1 OR MORE AREAS; TRACTION, MECHANICAL 2014 DoD APPLICATION OF A MODALITY TO 1 OR MORE AREAS; TRACTION, MECHANICAL 2014 DoD THERAPEUTIC PROCEDURE,1 OR MORE AREAS,EACH 15 MINUTES;NEUROMUSCULA R REEDUCATION OF MOVEMENT,BALANCE,CARRIAGE SETTER RDINATION,KINESTHETI C SENSE,POSTURE,AND/OR PROPRIOCEPTION FOR SITTING AND/OR STANDING ACTIVITIES 2014 [facility] PSYCHOTHERAPY, 45 MINUTES WITH PATIENT 2014 Do[facility] PURE TONE AUDIOMETRY (THRESHOLD), AUTOMATED; AIR ONLY 2014 Do[facility] APPLICATION OF A MODALITY TO 1 OR MORE AREAS; TRACTION, MECHANICAL 2014 DoD APPLICATION OF A MODALITY TO 1 OR MORE AREAS; TRACTION, MECHANICAL 2014 DoD APPLICATION OF A MODALITY TO 1 OR MORE AREAS; TRACTION, MECHANICAL 2014 DoD TELE ASSESS & MGT SRV PROV QUAL NONPHYS HLTH CARE PRO TO EST PAT,PARENT,GUARD NOT ORIG REL ASSESS & MGT SRV PROV W/IN PREV 7 DAYS NOR LEAD ASSESS & MGT SRV/PX W/IN NXT 24 HR/SOON APT;5-10 MIN MED DIS 2014 DoD APPLICATION OF A MODALITY TO 1 OR MORE AREAS; TRACTION, MECHANICAL 2014 DoD APPLICATION OF A MODALITY TO 1 OR MORE AREAS; TRACTION, MECHANICAL 2014 DoD APPLICATION OF A MODALITY TO 1 OR MORE AREAS; TRACTION, MECHANICAL 2014 DoD NEEDLE, STERILE, ANY SIZE, EACH 2014 DoD APPLICATION OF A MODALITY TO 1 OR MORE AREAS; TRACTION, MECHANICAL 2014 Do[facility] THERAPEUTIC PROCEDURE,1 OR MORE AREAS,EACH 15 MINUTES;NEUROMUSCULA R REEDUCATION OF MOVEMENT,BALANCE,CARRIAGE SETTER RDINATION,KINESTHETI C SENSE,POSTURE,AND/OR PROPRIOCEPTION FOR SITTING AND/OR STANDING ACTIVITIES 2014 [facility] THERAPEUTIC PROCEDURE, 1 OR MORE AREAS, EACH 15 MINUTES; THERAPEUTIC EXERCISES TO DEVELOP STRENGTH AND ENDURANCE, RANGE OF MOTION AND FLEXIBILITY 2014 DoD TELE ASSESS & MGT SRV PROV QUAL NONPHYS HLTH CARE PRO TO EST PAT,PARENT,GUARD NOT ORIG REL ASSESS & MGT SRV PROV W/IN PREV 7 DAYS NOR LEAD ASSESS & MGT SRV/PX W/IN NXT 24 HR/SOON APT;5-10 MIN MED DIS 2014 Do[facility] PSYCHOTHERAPY, 45 MINUTES WITH PATIENT 2014 DoD PSYCHOTHERAPY, 60 MINUTES WITH PATIENT WHEN PERFORMED WITH AN EVALUATION AND MANAGEMENT SERVICE (LIST SEPARATELY IN ADDITION TO THE CODE FOR PRIMARY PROCEDURE) 2014 DoD TELE ASSESS & MGT SRV PROV QUAL NONPHYS HLTH CARE PRO TO EST PAT,PARENT,GUARD NOT ORIG REL ASSESS & MGT SRV PROV W/IN PREV 7 DAYS NOR LEAD ASSESS & MGT SRV/PX W/IN NXT 24 HR/SOON APT;5-10 MIN MED DIS 2014 DoD PSYCHOTHERAPY, 60 MINUTES WITH PATIENT WHEN PERFORMED WITH AN EVALUATION AND MANAGEMENT SERVICE (LIST SEPARATELY IN ADDITION TO THE CODE FOR PRIMARY PROCEDURE) 2014 DoD PSYCHOTHERAPY, 45 MINUTES WITH PATIENT 2014 DoD PSYCHOTHERAPY, 60 MINUTES WITH PATIENT WHEN PERFORMED WITH AN EVALUATION AND MANAGEMENT SERVICE (LIST SEPARATELY IN ADDITION TO THE CODE FOR PRIMARY PROCEDURE) 2014 Do[facility] PSYCHOTHERAPY, 45 MINUTES WITH PATIENT 2014 DoD APPLICATION OF A MODALITY TO 1 OR MORE AREAS; ULTRASOUND, EACH 15 MINUTES 2013 DoD PSYCHOTHERAPY, 60 MINUTES WITH PATIENT WHEN PERFORMED WITH AN EVALUATION AND MANAGEMENT SERVICE (LIST SEPARATELY IN ADDITION TO THE CODE FOR PRIMARY PROCEDURE) 2013 DoD APPLICATION OF A MODALITY TO 1 OR MORE AREAS; ULTRASOUND, EACH 15 MINUTES 2013 DoD PSYCHOTHERAPY, 45 MINUTES WITH PATIENT 2013 DoD PSYCHOTHERAPY, 45 MINUTES WITH PATIENT WHEN PERFORMED WITH AN EVALUATION AND MANAGEMENT SERVICE (LIST SEPARATELY IN ADDITION TO THE CODE FOR PRIMARY PROCEDURE) 2013 DoD PSYCHOTHERAPY, 45 MINUTES WITH PATIENT 2013 DoD TELE ASSESS & MGT SRV PROV QUAL NONPHYS HLTH CARE PRO TO EST PAT,PARENT,GUARD NOT ORIG REL ASSESS & MGT SRV PROV W/IN PREV 7 DAYS NOR LEAD ASSESS & MGT SRV/PX W/IN NXT 24 HR/SOON APT;5-10 MIN MED DIS 2013 Do[facility] PSYCHOTHERAPY, 30 MINUTES WITH PATIENT WHEN PERFORMED WITH AN EVALUATION AND MANAGEMENT SERVICE (LIST SEPARATELY IN ADDITION TO THE CODE FOR PRIMARY PROCEDURE) 2013 [facility] PSYCHOTHERAPY, 30 MINUTES WITH PATIENT 2013 Do[facility] PSYCHOTHERAPY, 45 MINUTES WITH PATIENT WHEN PERFORMED WITH AN EVALUATION AND MANAGEMENT SERVICE (LIST SEPARATELY IN ADDITION TO THE CODE FOR PRIMARY PROCEDURE) 2013 Do[facility] PSYCHOTHERAPY, 45 MINUTES WITH PATIENT 2013 [facility] PSYCHOTHERAPY, 45 MINUTES WITH PATIENT 2013 Do[facility] PSYCHOTHERAPY, 60 MINUTES WITH PATIENT WHEN PERFORMED WITH AN EVALUATION AND MANAGEMENT SERVICE (LIST SEPARATELY IN ADDITION TO THE CODE FOR PRIMARY PROCEDURE) 2013 Do[facility] PSYCHOTHERAPY, 45 MINUTES WITH PATIENT 2013 DoD TELE ASSESS & MGT SRV PROV QUAL NONPHYS HLTH CARE PRO TO EST PAT,PARENT,GUARD NOT ORIG REL ASSESS & MGT SRV PROV W/IN PREV 7 DAYS NOR LEAD ASSESS & MGT SRV/PX W/IN NXT 24 HR/SOON APT;5-10 MIN MED DIS 2013 Do[facility] PSYCHOTHERAPY, 60 MINUTES WITH PATIENT WHEN PERFORMED WITH AN EVALUATION AND MANAGEMENT SERVICE (LIST SEPARATELY IN ADDITION TO THE CODE FOR PRIMARY PROCEDURE) 2013 DoD PSYCHOTHERAPY, 45 MINUTES WITH PATIENT 2013 DoD TELE ASSESS & MGT SRV PROV QUAL NONPHYS HLTH CARE PRO TO EST PAT,PARENT,GUARD NOT ORIG REL ASSESS & MGT SRV PROV W/IN PREV 7 DAYS NOR LEAD ASSESS & MGT SRV/PX W/IN NXT 24 HR/SOON APT;5-10 MIN MED DIS 2013 [facility] PSYCHOTHERAPY, 45 MINUTES WITH PATIENT 2013 Do[facility] PSYCHOTHERAPY, 45 MINUTES WITH PATIENT 2013 [facility] PSYCHOTHERAPY, 60 MINUTES WITH PATIENT WHEN PERFORMED WITH AN EVALUATION AND MANAGEMENT SERVICE (LIST SEPARATELY IN ADDITION TO THE CODE FOR PRIMARY PROCEDURE) 2013 [facility] PURE TONE AUDIOMETRY (THRESHOLD); AIR ONLY 2013 DoD PSYCHOTHERAPY, 45 MINUTES WITH PATIENT 2013 DoD PSYCHOTHERAPY, 45 MINUTES WITH PATIENT 2013 DoD PSYCHOTHERAPY, 45 MINUTES WITH PATIENT WHEN PERFORMED WITH AN EVALUATION AND MANAGEMENT SERVICE (LIST SEPARATELY IN ADDITION TO THE CODE FOR PRIMARY PROCEDURE) 2013 [facility] TELE ASSESS & MGT SRV PROV QUAL NONPHYS HLTH CARE PRO TO EST PAT,PARENT,GUARD NOT ORIG REL ASSESS & MGT SRV PROV W/IN PREV 7 DAYS NOR LEAD ASSESS & MGT SRV/PX W/IN NXT 24 HR/SOON APT;5-10 MIN MED DIS 2013 Do[facility] PSYCHOTHERAPY, 45 MINUTES WITH PATIENT 2013 DoD PSYCHOTHERAPY, 60 MINUTES WITH PATIENT WHEN PERFORMED WITH AN EVALUATION AND MANAGEMENT SERVICE (LIST SEPARATELY IN ADDITION TO THE CODE FOR PRIMARY PROCEDURE) 2013 [facility] PSYCHIATRIC DIAGNOSTIC EVALUATION WITH MEDICAL SERVICES 2013 DoD PSYCHOTHERAPY, 60 MINUTES WITH PATIENT 2013 [facility] PSYCHIATRIC DIAGNOSTIC EVALUATION 2013 [facility] VIS FUNCT SCREEN,AUTOMAT/SEMI- AUTOMAT BILAT QUANT DETERM VISUAL ACUITY,OCULAR ALIGN,COLOR VISION,PSEUDOISOCHRO MAT PLATES,& FIELD VIS (MAY INC ALL/SOME SCRN DETERM FOR CONTRAST SENSITIV,VIS UND GLARE) 2012 [facility] Social Work Individual Outpatient Counseling 45-50 Minutes 2013 SANJUANA DOWNING [facility] Non-Physician Phone Call To Patient/Provider Brief (5-10min) Non-Physician Phone Call To Patient/Provider Brief (5-10min) [phone] DUSTIN DAUGHERTY [facility] Social Work Individual Outpatient Counseling 45-50 Minutes 2013 SANJUANA DOWNING [facility] Social Work Individual Outpatient Counseling 45-50 Minutes 2013 SANJUANA DOWNING [facility] Threshold Audiogram (Pure Tone) Threshold Audiogram (Pure Tone) 88829 2013 SONNY MERCEDES Extensive Color Vision Testing Extensive Color Vision Testing 16387 2013 SONNY MERCEDES Screening Test Of Visual Acuity, Quantitative, Bilateral Screening Test Of Visual Acuity, Quantitative, Bilateral 22035 2013 SONNY MERCEDES Tonometry Tonometry 93116 2013 SONNY MERCEDES Social Work Individual Outpatient Counseling 45-50 Minutes 2013 SANJUANA DOWNING [facility] Social Work Individual Outpatient Counseling 45-50 Minutes 2013 SANJUANA DOWNING [facility] Non-Physician Phone Call To Patient/Provider Brief (5-10min) Non-Physician Phone Call To Patient/Provider Brief (5-10min) 47601 2013 RANDALL ENRIQUE [facility] Psych Ther Indiv Interact Appr 45-50 Min W/ Med Eval Manage 2013 SRAVAN ATKINSON [facility] Social Work Individual Outpatient Counseling 45-50 Minutes 2013 SANJUANA DOWNING [facility] Psychiatric Evaluation Comprehensive Examination Interactive Psychiatric Evaluation Comprehensive Examination Interactive 12507 2013 SRAVAN ATKINSON [facility] Psychiatric Evaluation Review of Records and Reports Psychiatric Evaluation Review of Records and Reports 84943 2013 SRAVAN ATKINSON [facility] Psychiatric Evaluation Comprehensive Examination Psychiatric Evaluation Comprehensive Examination 46349 2013 SANJUANA DOWNING [facility] Visual Function Screening Visual Function Screening 69309 2012 RASTA HODGE [facility] Threshold Audiogram (Pure Tone) Threshold Audiogram (Pure Tone) 76674 2012 RASTA HODGE [facility] Tonometry Tonometry 89505 2012 RASTA HODGE [facility] Extensive Color Vision Testing Extensive Color Vision Testing 09474 2012 RASTA HODGE [facility] Screening Test Of Visual Acuity, Quantitative, Bilateral Screening Test Of Visual Acuity, Quantitative, Bilateral 33504 2012 RASTA HODGE [facility] Psychiatric Evaluation Review of Records and Reports Psychiatric Evaluation Review of Records and Reports 26068 2012 AUGIE BARCLAY [facility] Psychiatric Therapy Individual Approximately 45-50 Minutes Psychiatric Therapy Individual Approximately 45-50 Minutes 09670 2011 PHILLIP ORONA [facility] Psychometric Neuropsych Testing Battery Admin By Computer Psychometric Neuropsych Testing Battery Admin By Computer 71599 2011 ALE PARTIDA [facility] Psychiatric Therapy Indiv By A Physician Approx 75-80 Min Psychiatric Therapy Indiv By A Physician Approx 75-80 Min 96600 2011 PHILLIP ORONA [facility] Social Work Individual Outpatient Counseling 45-50 Minutes Social Work Individual Outpatient Counseling 45-50 Minutes [id number] 2011 PHILLIP ORONA [facility] Social Work Individual Outpatient Counseling 45-50 Minutes Social Work Individual Outpatient Counseling 45-50 Minutes 84533 2011 PHILLIP ORONA [facility] Psychiatric Therapy Individual Approximately 45-50 Minutes Psychiatric Therapy Individual Approximately 45-50 Minutes 64975 2011 PHILLIP ORONA [facility] Psychiatric Therapy Individual Approximately 45-50 Minutes Psychiatric Therapy Individual Approximately 45-50 Minutes [id number] 2011 PHILLIP ORONA [facility] Psychiatric Evaluation Comprehensive Examination Psychiatric Evaluation Comprehensive Examination 19355 2011 PHILLIP ORONA [facility] Audiogram (Screening) Audiogram (Screening) 41026 2011 RIMA LONGORIA [facility] Screening Test Of Visual Acuity, Quantitative, Bilateral Screening Test Of Visual Acuity, Quantitative, Bilateral 82085 2011 RIMA LONGORIA [facility] Physical Therapy: ___ Se ion Segments, 15 Minutes Each Physical Therapy: ___ Session Segments, 15 Minutes Each 73055 2010 BETO MONTENEGRO [facility] Physical Medicine Physical Therapy Re-Evaluation Physical Medicine Physical Therapy Re-Evaluation 65027 2010 BETO MONTENEGRO [facility] Physical Therapy: ___ Se ion Segments, 15 Minutes Each Physical Therapy: ___ Session Segments, 15 Minutes Each 70989 2010 BETO MONTENEGRO [facility] Physical Medicine Physical Therapy Evaluation Physical Medicine Physical Therapy Evaluation 63874 2010 BETO MONTENEGRO [facility] Medical Nutrition Therapy Initial A e ment, Intervention Medical Nutrition Therapy Initial Assessment, Intervention 59397 2010 BETTINA COWAN [facility] Psychiatric Evaluation Review of Records and Reports Psychiatric Evaluation Review of Records and Reports 54424 2010 WILFRED SHAH [facility] Screening Test Of Visual Acuity, Quantitative, Bilateral Screening Test Of Visual Acuity, Quantitative, Bilateral 35518 2010 ALEX MOYA [facility] Psychometric Neuropsych Testing Battery Admin By Computer Psychometric Neuropsych Testing Battery Admin By Computer 99195 2009 REN PENALOZA [facility] Electrocardiogram Electrocardiogram 67723 06/25 ASHLEY CAGE [facility] Medical Nutrition Therapy Initial A e ment, Intervention Medical Nutrition Therapy Initial Assessment, Intervention 21604 2007 BETTINA COWAN [facility] Psychiatric Evaluation Review of Records and Reports Psychiatric Evaluation Review of Records and Reports 31969 2007 KRISTIN OLSEN DoD Psychiatric Therapy Individual Approximately 45-50 Minutes Psychiatric Therapy Individual Approximately 45-50 Minutes 14537 2006 HAMILTON HOFF [facility] Psychiatric Evaluation Review of Records and Reports Psychiatric Evaluation Review of Records and Reports 64507 2006 RAJANI LEBRON [facility] Psychiatric Therapy Individual Approximately 45-50 Minutes Psychiatric Therapy Individual Approximately 45-50 Minutes 25424 2006 HAMILTON HOFF [facility] Psychiatric Therapy Individual Approximately 45-50 Minutes Psychiatric Therapy Individual Approximately 45-50 Minutes 51704 2005 HAMILTON HOFF [facility] Psychiatric Therapy Individual Approximately 45-50 Minutes Psychiatric Therapy Individual Approximately 45-50 Minutes 72547 2005 HAMILTON HOFF [facility] Psychiatric Therapy Individual Approximately 45-50 Minutes Psychiatric Therapy Individual Approximately 45-50 Minutes 43515 2005 HAMILTON HOFF [facility] Psychiatric Therapy Individual Approximately 45-50 Minutes Psychiatric Therapy Individual Approximately 45-50 Minutes 81379 2005 HAMILTON HOFF [facility] Psychiatric Therapy Individual Approximately 45-50 Minutes Psychiatric Therapy Individual Approximately 45-50 Minutes [id number] 2005 HAMILTON HOFF [facility] Psychiatric Therapy Individual Approximately 45-50 Minutes Psychiatric Therapy Individual Approximately 45-50 Minutes [id number] 2005 HAMILTON HOFF [facility] Psychiatric Evaluation Review of Records and Reports Psychiatric Evaluation Review of Records and Reports 03498 2017 SERENE CARDENAS [facility] Psychiatric Therapy Individual Approximately 45-50 Minutes Psychiatric Therapy Individual Approximately 45-50 Minutes 89748 2016 JUAN J HUI [facility] Psychiatric Therapy Preparation of Psychiatric Status Report Psychiatric Therapy Preparation of Psychiatric Status Report 54412 2016 SRAVAN ATKINSON [facility] Psychiatric Therapy Individual Approximately 45-50 Minutes Psychiatric Therapy Individual Approximately 45-50 Minutes 65963 2016 JUAN J HUI [facility] Psychiatric Therapy Individual Approximately 45-50 Minutes 2015 JUAN J HUI [facility] Psychiatric Therapy Individual Approximately 45-50 Minutes 2015 JUAN J HUI [facility] Non-Physician Phone Call To Patient/Provider Brief (5-10min) Non-Physician Phone Call To Patient/Provider Brief (5-10min) 84149 2015 DUSTIN DAUGHERTY [facility] Non-Physician Phone Call To Patient/Provider Brief (5-10min) Non-Physician Phone Call To Patient/Provider Brief (5-10min) 49362 2015 DUSTIN DAUGHERTY [facility] Psychiatric Evaluation Comprehensive Examination Psychiatric Evaluation Comprehensive Examination 11896 2015 JUAN J HUI [facility] Non-Physician Phone Call To Patient/Provider Brief (5-10min) Non-Physician Phone Call To Patient/Provider Brief (5-10min) 27482 2015 DUSTIN DAUGHERTY [facility] Non-Physician Phone Call To Patient/Provider Brief (5-10min) Non-Physician Phone Call To Patient/Provider Brief (5-10min) 79230 2014 DUSTIN DAUGHERTY [facility] Modalities Ultrasound Modalities Ultrasound 20768 2014 TRINA BETH [facility] Modalities Ultrasound Modalities Ultrasound 91862 2014 TRINA BETH [facility] Modalities Ultrasound Modalities Ultrasound 74434 2014 HAMILTON NEWTON US to both wrists 3.3 MHz, 100% duty cycle 2.4 kJ [facility] Modalities Traction Modalities Traction 38509 1 2014 HAMILTON NEWTON [facility] Modalities Traction Modalities Traction 90010 1 2014 TRINA BETH [facility] Modalities Traction Modalities Traction 82957 0 2014 HAMILTON NEWTON ICT 34# x 15 minutes [facility] Physical Medicine Physical Therapy Re-Evaluation Physical Medicine Physical Therapy Re-Evaluation 70345 2014 HAMILTON NEWTON [facility] Physical Therapy Neuromuscular Re-education Physical Therapy Neuromuscular Re-education 58178 2014 ASHVIN CHASE [facility] Physical Therapy: ___ Se ion Segments, 15 Minutes Each Physical Therapy: ___ Session Segments, 15 Minutes Each 97262 2014 ASHVIN CHASE Physical Medicine Physical Therapy Evaluation Physical Medicine Physical Therapy Evaluation 94098 2014 ASHVIN CHASE [facility] Social Work Individual Outpatient Counseling 45-50 Minutes 2014 SANJUANA DOWNING [facility] Threshold Audiogram (Pure Tone) Automated Threshold Audiogram (Pure Tone) Automated 0208T 2014 MARY BLOUNT [facility] Visual Dao Test Intermediate Examination Visual Dao Test Intermediate Examination 02623 2014 MARY BLOUNT [facility] Extensive Color Vision Testing Extensive Color Vision Testing 04254 2014 MARY BLOUNT Screening Test Of Visual Acuity, Quantitative, Bilateral Screening Test Of Visual Acuity, Quantitative, Bilateral 14480 2014 MARY BLOUNT [facility] Tonometry Tonometry 99876 2014 MARY BLOUNT [facility] Comprehensive Audiometry Comprehensive Audiometry 48500 2014 MARY BLOUNT [facility] Physical Medicine Physical Therapy Re-Evaluation Physical Medicine Physical Therapy Re-Evaluation 31644 2014 HAMILTON NEWTON [facility] Modalities Traction Modalities Traction 41505 0 2014 HAMILTON NEWTON [facility] Modalities Traction Modalities Traction 54794 0 2014 HAMILTON NEWTON 30# x 15 minutes. [facility] Physical Medicine Physical Therapy Re-Evaluation Physical Medicine Physical Therapy Re-Evaluation 18619 2014 HAMILTON NEWTON [facility] Traction Cervical Traction Cervical 04206 10/02 TRINA BETH [facility] Non-Physician Phone Call To Patient/Provider Brief (5-10min) Non-Physician Phone Call To Patient/Provider Brief (5-10min) 55317 2014 DUSTIN DAUGHERTY [facility] Traction Cervical Traction Cervical 50899 09/20 TRINA BETH [facility] Traction Cervical Traction Cervical 21706 09/17 TRINA BETH [facility] Traction Cervical Traction Cervical 30704 09/13 TRINA BETH [facility] Physical Medicine Physical Therapy Re-Evaluation Physical Medicine Physical Therapy Re-Evaluation 43687 2014 HAMILTON NEWTON [facility] Physical Therapy Mobilization Joint Physical Therapy Mobilization Joint 22499 2014 HAMILTON NEWTON Instructed him in use of lacrosse ball for DTM. Trigger Point Dry Needling to the left middle trap - superficially. Total time - 20 minutes [facility] Physical or manipulative therapy performed for maintenance rather than orthodox 2014 HAMILTON NEWTON Trigger Point Dry Needling [facility] Needle, sterile, any size, each 2014 HAMILTON NEWTON 0.25x40 mm needle used [facility] Traction Cervical Traction Cervical 17404 08/20 TRINA BETH [facility] Physical Therapy: ___ Se ion Segments, 15 Minutes Each Physical Therapy: ___ Session Segments, 15 Minutes Each 14348 2014 TRINA BETH [facility] Physical Therapy Neuromuscular Re-education Physical Therapy Neuromuscular Re-education 85097 2014 TRINA BETH [facility] Physical Therapy: ___ Se ion Segments, 15 Minutes Each Physical Therapy: ___ Session Segments, 15 Minutes Each 74756 2014 TRINA BETH [facility] Physical Therapy: ___ Se ion Segments, 15 Minutes Each Physical Therapy: ___ Session Segments, 15 Minutes Each 97720 2014 HAMILTON NEWTON Instruction in use of home traction plus levator stretches - 13 minutes [facility] Physical Medicine Physical Therapy Evaluation Physical Medicine Physical Therapy Evaluation 87121 2014 HAMILTON NEWTON DoD Modalities Traction Modalities Traction 85698 0 2014 HAMILTON NEWTON Intermittent Cervical Traction x 20 minutes. 30 sec on, 10 sec rest at 50% of max pull. Pt tolerated treatment well. [facility] Non-Physician Phone Call To Patient/Provider Brief (5-10min) Non-Physician Phone Call To Patient/Provider Brief (5-10min) 33887 2014 DUSTIN DAUGHERTY [facility] Social Work Individual Outpatient Counseling 45-50 Minutes 2014 SANJUANA DOWNING [facility] Non-Physician Phone Call To Patient/Provider Brief (5-10min) Non-Physician Phone Call To Patient/Provider Brief (5-10min) 83128 2014 RANDALL ENRIQUE [facility] Social Work Individual Outpatient Counseling 45-50 Minutes 2014 SANJUANA DOWNING [facility] Social Work Individual Outpatient Counseling 45-50 Minutes 2014 SANJUANA DOWNING [facility] Modalities Ultrasound Modalities Ultrasound 20951 2013 RONA ALEXANDER [facility] Physical Therapy: ___ Se ion Segments, 15 Minutes Each Physical Therapy: ___ Session Segments, 15 Minutes Each 62240 2013 HAMILTON NEWTON Instructed in median nerve flossing RUE, 10 reps in ea direction. Established home exercise timeline. Therex x 10 minutes [facility] Modalities Ultrasound Modalities Ultrasound 29667 2013 HAMILTON NEWTON US x 12 minutes to include set up [facility] Physical Medicine Physical Therapy Evaluation Physical Medicine Physical Therapy Evaluation 98595 2013 HAMILTON NEWTON [facility] Social Work Individual Outpatient Counseling 45-50 Minutes 2013 SANJUANA DOWNING [facility] Psych Ther Indiv Interact Appr 45-50 Min W/ Med Eval Manage 2013 SRAVAN ATKINSON [facility] Social Work Individual Outpatient Counseling 45-50 Minutes 2013 SANJUANA DOWNING Non-Physician Phone Call To Patient/Provider Brief (5-10min) Non-Physician Phone Call To Patient/Provider Brief (5-10min) 43144 2013 DUSTIN DAUGHERTY [facility] Psych Ther Indiv Interact Appr 20-30 Min W/ Med Eval Manage 2013 SRAVAN ATKINSON [facility] Social Work Individual Outpatient Counseling 20-30 Minutes 2013 SANJUANA DOWNING [facility] Psych Ther Indiv Interact Appr 45-50 Min W/ Med Eval Manage 2013 SRAVAN ATKINSON [facility] Social Work Individual Outpatient Counseling 45-50 Minutes 2013 SANJUANA DOWNING [facility] Social Work Individual Outpatient Counseling 45-50 Minutes 2013 SANJUANA DOWNING [facility] Social Work Individual Outpatient Counseling 45-50 Minutes 2013 SANJUANA DOWNING Non-Physician Phone Call To Patient/Provider Brief (5-10min) Non-Physician Phone Call To Patient/Provider Brief (5-10min) 33726 2013 DUSTIN MADRIGAL [facility] Social History Combined list of available smoking, tobacco, and other social history from Department of Defense and Veterans Affairs facilities. Social History Type Response Date Comment Sourc e Tobacco smoking status NHIS VA-TOBACCO USE FORMER CIGARETTES 08/03/2024 [facility] History of tobacco use VA-TOBACCO NEVER USED OTHER TYPE 08/03/2024 [facility] History of tobacco use QUIT TOBACCO >7 Y EARS AGO 09/28/2017 [facility] This section is an empty social history section. DoD Plan of Care List of future care activities from Department of Veterans Affairs facilities. Additional future care activities may be listed in the Assessment and Plan section. Date/Time Care Activity Care Activity Detail Facili ty 01/31/2025 AMBULATORY - MEDICINE AMBULATORY - MEDICI NE [facility]
--- OUTSIDE RECORDS SUMMARY | 2024-09-19 08:10 | XMS_ITS | Clinical Summary ---
Author Organization [facility] Care Team Providers Care Endoscopy Tech Name Role Phone Unavailable Primary Care Provider Unavailabl e Social History Tobacco Use Types Packs/Day Years Used Date Smoking Tobacco: Never Assessed Sex and Gender Information Value Date Recorded Sex Assigned at Not on file Legal Sex Male 7:27 PM [employer] Gender Identity Not on file Sexual Orientation Not on file Plan of Treatment Health Maintenance Due Date Last Done Comments Hepatitis C Virus (HCV) Screening 1975 TdaP Immunization 1975 Hepatitis B Immunization (1 of 3 - 19+ 3-dose series) 1994 Colonoscopy 2020 Colorectal Cancer Screening 2020 Influenza Immunization (#1) 12/18/202301/17, 02/02/2017 SARS-COV-2 Immunization ( season) 2023 12/03/2020 Respiratory Syncytial Virus (RSV) Immunization (Adult) (1 - 1-dose 75+ series) 2050 Meningococcal Immunization (ACWY) Aged Out No longer eligible b ased on patient's age to complete this topic Pneumococcal Immunization Combined Aged Out No longer eligible b ased on patient's age to complete this topic Rotavirus Immunization Aged Out No lo nger eligible based on patient's age to complete this topic
--- OUTSIDE RECORDS SUMMARY | 2024-09-19 08:10 | XMS_ITS | Clinical Summary ---
Author Organization [facility] Address [address] [place] [id number] Care Team Providers Care Waste Management Recycling Technician Name Role Phone Jovi Batista MD Primary Care Provider [phone] Allergies No known active allergies Medications tamsulosin (FLOMAX) 0.4 mg extended release capsule Take 1 capsule (0.4 mg total) by mouth nightly 0 Active famotidine (PEPCID) 20 mg tablet Take 1 tablet (20 mg total) by mouth 2 (two) times a day as needed for heartburn Active sertraline (ZOLOFT) 25 mg tablet Take 1 tablet (25 mg total) by mouth 3 (three) times a week Active omeprazole (PriLOSEC) 40 mg capsule Take 1 capsule (40 mg total) by mouth daily 90 capsule 3 5 Active Active Problems Problem Noted Date Diagnosed Date Scrotal swelling 06/26/2024 Assessment & Plan (06/26/2024 2:05 PM CDT): No acute findings on exam. However, given prior history and sypmtomatology will check scrotal ultrasound and iwll follow response. Montior response. BMI 36.0-36.9,adult 06/26/2024 Assessment & Plan (06/26/2024 2:06 PM CDT): Asabove. BMI 37.0-37.9, adult 05/22/2024 Assessment & Plan (05/22/2024 1:40 PM HAND TRIMMER): Encoxurage 150min/week aerobic exericse. Healthy food chocies. Severe obesity (BMI 35.0-39.9) with comorbidity 05/22/2024 Assessment & Plan (06/26/2024 2:05 PM CDT): Encourage 150min/week aerobic exercise. Healthy food choices. Assessment & Plan (05/22/2024 1:40 PM HAND TRIMMER): As above. Degeneration of intervertebr al disc of lumbar region with discogenic back pain and lower extremity pain 05/22/2024 Assessment & Plan (05/22/2024 1:40 PM HAND TRIMMER): REfer to PT for evaluation and treatment recommendation. Stiffness, no radicular or b/b symptoms. Left atrial enlargement 03/14/2024 S/P umbilical hernia repair, follow-up exam 11/16 Assessment & Plan (12/27/2023 1:57 PM CDT): NO postoperative complications. NO redness. 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 No radicular sypmtoms. Marked paraspinal TTP. COurse of cyclobenzaprine and medrol. WIll follow response. Mental disorder 07/06/2023 Obesity 07/06/2023 Allergic rhinitis 07/06/2023 Cervical disc disorder with radiculopathy 2023 Esophageal reflux 07/06/2023 Esophagitis 07/06/2023 Overview (07/06/2023): No breakthorugh symptoms on PPI Hypercholesterolemia 07/06/2023 Sleep apnea 07/06/2023 Morbid (severe) obesity due to excess calories 0 07/06/2023 Lateral epicondylitis of right elbow 11/03/2022 Assessment & Plan (11/03/2022 1:44 PM CDT): Images from the original note were not included. consent signed site prepped injection using 1 cc each (1% lidocain/lidocain/marcain 0.25%/kenalog 40) patient tolerated procedure with no complications drsg applied ice tid for 5-10 min f/u prn discussed s/s to monitor for that would warrent attention Ice for 5-10 minutes TID and activities resume slowly when pain free Tendonitis 09/23/2022 Leg cramps 01/12/2022 Assessment & Plan (01/12/2022 3:43 PM CDT): New, prescribed mag oxide, work on hydration Acute non-recurrent maxillary sinusitis 08/11/19 Impingement syndrome of left shoulder 04/03/2021 Assessment & Plan (07/08/2021 3:58 PM CDT): Pending surgery Arthritis of left acromioclavicular joint 2020 Seborrheic keratosis, inflamed 01/07/2021 Assessment & Plan (01/07/2021 3:23 PM CDT): This is right within his with scars I received verbal permission and liquid nitrogen was performed skin care was discussed Ingrown toenail of both feet 08/05/2020 Wheezing 05/26/2020 Assessment & Plan (01/23/2021 9:57 AM CDT): The patient will continue with an albuterol rescue inhaler on a p.r.n. basis and up to 4 times a day as needed for wheezing. The patient was offered an allergy and ENT referral. The patient was also offered allergy medications. The patient would like to defer on referrals and medications at this time. Assessment & Plan (10/15/2020 2:50 PM CDT): Due to the continued wheezing, I have ordered the patient on bronchial provocation PFT to determine if he has asthma. Assessment & Plan (08/13/2020 1:57 PM CDT): Due to the patient's wheezing with the cough, I have ordered the patient a pulmonary function test to evaluate symptoms. Due to the cough the patient will continue with Prilosec. Assessment & Plan (07/07/2020 2:59 PM CDT): Not improving, inhaler not helping, cxr normal, sending to pulmonology Assessment & Plan (05/26/2020 3:16 PM HAND TRIMMER): May be secondary to previous smoking, CXR today per my reading with no infiltrates, trial of proventil Benign prostatic hyperplasia with weak urinary s tream 12/18/2019 Assessment & Plan (05/22/2024 1:40 PM HAND TRIMMER): Continues on tamsulosin and will follow response. Assessment & Plan (01/07/2021 3:22 PM CDT): This is currently well controlled with meds Assessment & Plan (07/07/2020 2:49 PM CDT): Controlled with meds Assessment & Plan (12/18/2019 7:55 AM CDT): Controlled with current dose meds Sinus congestion 12/18/2019 Overview (12/18/2019): I am consulting ENT continue Flonase follow-up routine Assessment & Plan (09/29/2021 4:00 PM CDT): Suspect covid, medications as ordered, PCR ordered Chronic left shoulder pain 12/18/2019 Assessment & Plan (07/30/2020 8:47 AM CDT): Images from the original note were not included. This is bursitis based on MRI consent signed site prepped injection using 1 cc each (1% lidocain/lidocain/marcain 0.25%/kenalog 40) patient tolerated procedure with no complications drsg applied ice tid for 5-10 min f/u prn discussed s/s to monitor for that would warrent attention Ice for 5-10 minutes TID and activities resume slowly when pain free Assessment & Plan (07/07/2020 2:57 PM CDT): This is getting worse, will get mri, we did discuss PT Assessment & Plan (03/25/2020 2:39 PM HAND TRIMMER): Medications, x-ray, option for PT Assessment & Plan (12/18/2019 8:03 AM CDT): Patient does not appear to have any rotator pathology I gave him some instructions and exercises to do at home with an exercise band along with a Medrol Dosepak we have the option for physical therapy an imaging if signs and symptoms persist. Abdominal pain 02/07/2019 Assessment & Plan (11/20/2023 3:28 PM CDT): Possible umbilical hernia. May need imaging. Discussed when it is a medical emergency and when to go to the ER. Prostatism 02/07/2019 Assessment & Plan (08/30/2019 9:44 AM CDT): Medications as ordered, will f/u at PE History of Wong's esophagus 01/12/2019 Assessment & Plan (07/30/2020 8:49 AM CDT): Images from the original note were not included. This is currently controlled, continue Prilosec 40 mg an GERD precautions Avoid spicy, fried, greasy foods Keep hydrated with clear liquids Elevate HOB 2- 3 inches Avoid or cut down on caffeines, chocolates, and ETOH No late meals, or heavy meals after 7 pm Reg daily exercise No tight fitting clothing Stop smoking - if smoker Watch for worsening symptoms - ie diarrhea, vomiting, nausea, blood per rectum, vomiting up blood ,fever, arthralgias, rash etc. RTC prn or if new symptoms arise Pt or parent verbalizes understanding Assessment & Plan (01/12/2019 3:12 PM CDT): No evidence of Wong's of last biopsy. Pt doing well overall. We discussed red flag symptoms and to call office if he has these to be further evaluated. He verbalized understanding. Gastroesophageal reflux disease 09/21/2018 Overview (09/21/2018): Added automatically from request for surgery [id number] Assessment & Plan (01/12/2022 3:44 PM CDT): Images from the original note were not included. Avoid spicy, fried, greasy foods Keep hydrated with clear liquids Elevate HOB 2- 3 inches Avoid or cut down on caffeines, chocolates, and ETOH No late meals, or heavy meals after 7 pm Reg daily exercise No tight fitting clothing Stop smoking - if smoker Watch for worsening symptoms - ie diarrhea, vomiting, nausea, blood per rectum, vomiting up blood ,fever, arthralgias, rash etc. RTC prn or if new symptoms arise Pt or parent verbalizes understanding Assessment & Plan (08/30/2019 9:43 AM CDT): Images from the original note were not included. Avoid spicy, fried, greasy foods Keep hydrated with clear liquids Elevate HOB 2- 3 inches Avoid or cut down on caffeines, chocolates, and ETOH No late meals, or heavy meals after 7 pm Reg daily exercise No tight fitting clothing Stop smoking - if smoker Watch for worsening symptoms - ie diarrhea, vomiting, nausea, blood per rectum, vomiting up blood ,fever, arthralgias, rash etc. RTC prn or if new symptoms arise Pt or parent verbalizes understanding Assessment & Plan (01/12/2019 3:12 PM CDT): Currently on omeprazole 40 mg in AM and ranitidine 300 mg in PM. Pt says his PCP put him on this originally and providing refills. Pt following GERD diet most of the time and working on weight loss. Confirmed no Wong's with last EGD/biopsy and confirmed GERD with pH monitoring. Will continue current regimen and to continue GERD diet. May use TUMS as needed for breakthrough symptoms. We discussed how if he has more difficulty swallowing than usual, more breakthrough GERD despite taking meds and following diet, or begins to have abdominal pain that he should contact our office. Pt verbalized understanding and will f/u as needed. Encounter for general adult medical examination with abnormal findings 08/02/2018 Assessment & Plan (01/12/2022 3:45 PM CDT): HEALTHCARE MAINTENANCE updated Assessment & Plan (01/07/2021 3:22 PM CDT): Healthcare maintenance updated COVID-19 vaccine is up-to-date patient refuses the flu shot Assessment & Plan (12/18/2019 8:02 AM CDT): Healthcare maintenance updated, healthy diet exercise and weight reduction, labs as ordered. Follow-up annual GERD (gastroesophageal reflux disease) 9 Assessment & Plan (07/06/2023 4:46 PM CDT): This is uncontrolled patient was well controlled on 40 mg of omeprazole not put him back on that dose and Pepcid after dinner he will update me in 3-4 weeks next step is a new EGD Assessment & Plan (11/03/2022 1:45 PM CDT): Images from the original note were not included. Avoid spicy, fried, greasy foods Keep hydrated with clear liquids Elevate HOB 2- 3 inches Avoid or cut down on caffeines, chocolates, and ETOH No late meals, or heavy meals after 7 pm Reg daily exercise No tight fitting clothing Stop smoking - if smoker Watch for worsening symptoms - ie diarrhea, vomiting, nausea, blood per rectum, vomiting up blood ,fever, arthralgias, rash etc. RTC prn or if new symptoms arise Pt or parent verbalizes understanding Assessment & Plan (10/27/2022 3:58 PM CDT): Images from the original note were not included. Avoid spicy, fried, greasy foods Keep hydrated with clear liquids Elevate HOB 2- 3 inches Avoid or cut down on caffeines, chocolates, and ETOH No late meals, or heavy meals after 7 pm Reg daily exercise No tight fitting clothing Stop smoking - if smoker Watch for worsening symptoms - ie diarrhea, vomiting, nausea, blood per rectum, vomiting up blood ,fever, arthralgias, rash etc. RTC prn or if new symptoms arise Pt or parent verbalizes understanding Assessment & Plan (07/13/2022 3:53 PM CDT): Images from the original note were not included. Avoid spicy, fried, greasy foods Keep hydrated with clear liquids Elevate HOB 2- 3 inches Avoid or cut down on caffeines, chocolates, and ETOH No late meals, or heavy meals after 7 pm Reg daily exercise No tight fitting clothing Stop smoking - if smoker Watch for worsening symptoms - ie diarrhea, vomiting, nausea, blood per rectum, vomiting up blood ,fever, arthralgias, rash etc. RTC prn or if new symptoms arise Pt or parent verbalizes understanding Assessment & Plan (08/10/2021 2:36 PM CDT): Images from the original note were not included. Avoid spicy, fried, greasy foods Keep hydrated with clear liquids Elevate HOB 2- 3 inches Avoid or cut down on caffeines, chocolates, and ETOH No late meals, or heavy meals after 7 pm Reg daily exercise No tight fitting clothing Stop smoking - if smoker Watch for worsening symptoms - ie diarrhea, vomiting, nausea, blood per rectum, vomiting up blood ,fever, arthralgias, rash etc. RTC prn or if new symptoms arise Pt or parent verbalizes understanding Assessment & Plan (07/08/2021 3:58 PM CDT): Images from the original note were not included. Avoid spicy, fried, greasy foods Keep hydrated with clear liquids Elevate HOB 2- 3 inches Avoid or cut down on caffeines, chocolates, and ETOH No late meals, or heavy meals after 7 pm Reg daily exercise No tight fitting clothing Stop smoking - if smoker Watch for worsening symptoms - ie diarrhea, vomiting, nausea, blood per rectum, vomiting up blood ,fever, arthralgias, rash etc. RTC prn or if new symptoms arise Pt or parent verbalizes understanding Assessment & Plan (01/07/2021 3:22 PM CDT): Images from the original note were not included. Avoid spicy, fried, greasy foods Keep hydrated with clear liquids Elevate HOB 2- 3 inches Avoid or cut down on caffeines, chocolates, and ETOH No late meals, or heavy meals after 7 pm Reg daily exercise No tight fitting clothing Stop smoking - if smoker Watch for worsening symptoms - ie diarrhea, vomiting, nausea, blood per rectum, vomiting up blood ,fever, arthralgias, rash etc. RTC prn or if new symptoms arise Pt or parent verbalizes understanding Assessment & Plan (07/07/2020 2:49 PM CDT): Images from the original note were not included. Avoid spicy, fried, greasy foods Keep hydrated with clear liquids Elevate HOB 2- 3 inches Avoid or cut down on caffeines, chocolates, and ETOH No late meals, or heavy meals after 7 pm Reg daily exercise No tight fitting clothing Stop smoking - if smoker Watch for worsening symptoms - ie diarrhea, vomiting, nausea, blood per rectum, vomiting up blood ,fever, arthralgias, rash etc. RTC prn or if new symptoms arise Pt or parent verbalizes understanding Assessment & Plan (04/02/2020 2:11 PM HAND TRIMMER): Images from the original note were not included. Avoid spicy, fried, greasy foods Keep hydrated with clear liquids Elevate HOB 2- 3 inches Avoid or cut down on caffeines, chocolates, and ETOH No late meals, or heavy meals after 7 pm Reg daily exercise No tight fitting clothing Stop smoking - if smoker Watch for worsening symptoms - ie diarrhea, vomiting, nausea, blood per rectum, vomiting up blood ,fever, arthralgias, rash etc. RTC prn or if new symptoms arise Pt or parent verbalizes understanding Assessment & Plan (03/25/2020 2:47 PM HAND TRIMMER): Images from the original note were not included. Avoid spicy, fried, greasy foods Keep hydrated with clear liquids Elevate HOB 2- 3 inches Avoid or cut down on caffeines, chocolates, and ETOH No late meals, or heavy meals after 7 pm Reg daily exercise No tight fitting clothing Stop smoking - if smoker Watch for worsening symptoms - ie diarrhea, vomiting, nausea, blood per rectum, vomiting up blood ,fever, arthralgias, rash etc. RTC prn or if new symptoms arise Pt or parent verbalizes understanding Assessment & Plan (12/18/2019 8:02 AM CDT): Images from the original note were not included. Avoid spicy, fried, greasy foods Keep hydrated with clear liquids Elevate HOB 2- 3 inches Avoid or cut down on caffeines, chocolates, and ETOH No late meals, or heavy meals after 7 pm Reg daily exercise No tight fitting clothing Stop smoking - if smoker Watch for worsening symptoms - ie diarrhea, vomiting, nausea, blood per rectum, vomiting up blood ,fever, arthralgias, rash etc. RTC prn or if new symptoms arise Pt or parent verbalizes understanding Assessment & Plan (09/27/2018 5:10 PM CDT): Continue omeprazole in the morning or ranitidine at night. Elevated glucose 08/02/2018 Assessment & Plan (07/06/2023 4:46 PM CDT): Healthy diet exercise and weight reduction Assessment & Plan (11/03/2022 1:45 PM CDT): Healthy diet and weight loss Assessment & Plan (10/27/2022 3:57 PM CDT): Healthy diet and exercise Assessment & Plan (09/23/2022 1:22 PM CDT): Healthy diet exercise and weight reduction Assessment & Plan (07/13/2022 3:52 PM CDT): helathy diet and exercise Assessment & Plan (01/12/2022 3:44 PM CDT): Healthy diet Assessment & Plan (04/02/2020 2:12 PM HAND TRIMMER): Work on diet and exercise Assessment & Plan (03/25/2020 2:47 PM HAND TRIMMER): Continue current diet and exercise, I did give him new labs to recheck his blood sugar Assessment & Plan (12/18/2019 8:02 AM CDT): Healthy diet and exercise, labs as ordered, follow-up 6 months Assessment & Plan (08/30/2019 9:43 AM CDT): Work on diet and exercise and weight loss, schedule PE Lipid screening 08/02/2018 Assessment & Plan (07/06/2023 4:46 PM CDT): Patient is to continue present medications, work on diet and exercise as discussed, we did discuss the medications and potential side effects and signs and symptoms that would warrant calling office. Follow up routine. Assessment & Plan (11/03/2022 1:45 PM CDT): Patient is to continue present medications, work on diet and exercise as discussed, we did discuss the medications and potential side effects and signs and symptoms that would warrant calling office. Follow up routine. Assessment & Plan (10/27/2022 3:58 PM CDT): Patient is to continue present medications, work on diet and exercise as discussed, we did discuss the medications and potential side effects and signs and symptoms that would warrant calling office. Follow up routine. Assessment & Plan (09/23/2022 1:22 PM CDT): Patient is to continue present medications, work on diet and exercise as discussed, we did discuss the medications and potential side effects and signs and symptoms that would warrant calling office. Follow up routine. Assessment & Plan (07/13/2022 3:53 PM CDT): Patient is to continue present medications, work on diet and exercise as discussed, we did discuss the medications and potential side effects and signs and symptoms that would warrant calling office. Follow up routine. Assessment & Plan (01/12/2022 3:46 PM CDT): Patient is to continue present medications, work on diet and exercise as discussed, we did discuss the medications and potential side effects and signs and symptoms that would warrant calling office. Follow up routine. Assessment & Plan (01/07/2021 3:23 PM CDT): Patient is to continue present medications, work on diet and exercise as discussed, we did discuss the medications and potential side effects and signs and symptoms that would warrant calling office. Follow up routine. Assessment & Plan (04/02/2020 2:12 PM HAND TRIMMER): porly controlled, changing to lipitor Seasonal allergies 08/02/2018 Generalized anxiety disorder 06/21/2018 Overview (02/07/2019): [place] [facility] [place] & Plan (07/06/2023 4:46 PM CDT): This is mild and well controlled with no SI HI will continue to follow Assessment & Plan (11/03/2022 1:45 PM CDT): Improved, no SI/HI will continue to follow Assessment & Plan (10/27/2022 3:58 PM CDT): Well controlled, no si/hi, cpm Assessment & Plan (09/23/2022 1:22 PM CDT): This is been well controlled he is 1 to see if he can taper off his medications I told him he going to attempt to go to every other day for 3-4 weeks then if he feels good he can stop the medication if he starts to feel increased anxiety go back to the previous dose Assessment & Plan (01/12/2022 3:45 PM CDT): Well controlled Assessment & Plan (07/08/2021 3:58 PM CDT): This is well controlled, CPM, f/u routine Assessment & Plan (01/07/2021 3:21 PM CDT): This is currently well controlled, continue current meds follow-up routine Assessment & Plan (07/30/2020 8:48 AM CDT): This is well controlled with current medications will continue current meds follow-up routine Assessment & Plan (05/26/2020 3:17 PM HAND TRIMMER): Images from the original note were not included. Start zoloft The pharmacologic and nonpharmacologic treatment of anxiety/depression were discusses with the patient. Included was a discussion of the current treatment regimens and their proposed mechanism of action concerning brain chemistry. Discussed the role of counseling as an adjunct to medications should we agree to pursue this. The patient is non-suicidal, and agrees to inform us of any change in this status follow up in 4-6 weeks- sooner if any problems Assessment & Plan (04/02/2020 2:11 PM HAND TRIMMER): Pending consult with [facility], wants to weight for medications, no SI/HI Assessment & Plan (03/25/2020 2:46 PM HAND TRIMMER): This is pretty well controlled not using any medications will continue to follow Assessment & Plan (12/18/2019 8:01 AM CDT): This appears to be well controlled with counseling were going to continue to follow patient will inform me if there are any issues and we can consider medications. Assessment & Plan (08/30/2019 9:42 AM CDT): He wants to start with [facility], discussed s/s that would warrant urgent attention, will follow Chronic allergic rhinitis 02/15/2017 Assessment & Plan (01/12/2022 3:44 PM CDT): As needed meds Assessment & Plan (01/07/2021 3:22 PM CDT): This is currently not an issue Assessment & Plan (12/18/2019 8:01 AM CDT): Were going to continue current medications I did advise the patient that we do well on the [facility] and were doing a consult to ENT Awareness of heart beat 12/08/2016 Overview (02/07/2019): negative full cardiac workup, will follow, discussed s/s that would warrant urgent attention Assessment & Plan (04/02/2020 2:12 PM HAND TRIMMER): Seen cardiology and all normal Neck pain 12/08/2016 Overview (02/07/2019): seen neurosurgery, MRI revelas moderate foraminal narrowing, DD, 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 Plantar fascial fibromatosis 12/08/2016 Overview (02/07/2019): As above Radiculopathy affecting upper extremity 12/09/19 17 Overview (02/07/2019): left arm, treated with PT Fluttering heart 11/08/2016 Overview (02/07/2019): Holter done 10/16/2016 showed a 6 APCs without any tachycardia arrhythmia. During his his symptoms of heart racing sinus rhythm is sinus rhythm without any tachycardia. Assessment & Plan (03/25/2020 2:47 PM HAND TRIMMER): This is stable, patient had a full workup with Cardiology, we will continue to follow Former smoker 11/08/2016 Sensation of chest tightness 11/05/2016 S/P balloon dilatation of esophageal stricture 0 06/16/2016 Overview (02/07/2019): distal stricture, dilated with 60F tts balloon dilator, 05/2016, Dr. Vitale Assessment & Plan (05/22/2024 1:40 PM HAND TRIMMER): As above. Vitamin D deficiency 2016 Assessment & Plan (05/26/2020 3:16 PM HAND TRIMMER): Please take 5000daily BMI 31.0-31.9,adult 04/22/2016 Assessment & Plan (07/30/2020 8:49 AM CDT): This is uncontrolled, Healthy diet and exercise with calorie restriction goal BMI is 25 follow-up 6 months Assessment & Plan (07/07/2020 2:48 PM CDT): congrats on weight Loss, Continue diet Wong's esophagus 04/01/2016 Overview (08/01/2018): As above, continue seen GI, continue medications. short segment Wong's, Upper GI performed 05/2016, Dr. Vitale Assessment & Plan (05/22/2024 1:39 PM HAND TRIMMER): OCntinue on omeprazoel and will follow response. No new GI sypmtoms. Assessment & Plan (07/06/2023 4:45 PM CDT): This has been stable and patient is up-to-date on his EGD I am going to increase his med if his symptoms persist he will need a new EGD Assessment & Plan (10/27/2022 3:56 PM CDT): Well controlled, CPM and diet Assessment & Plan (09/23/2022 1:19 PM CDT): Well controlled and will follow Assessment & Plan (07/13/2022 3:52 PM CDT): CPM, f/u prn Assessment & Plan (01/12/2022 3:44 PM CDT): Last scope 1 year ago Assessment & Plan (08/10/2021 2:35 PM CDT): This is been stable patient is seen Dr. Vitale continue current meds Assessment & Plan (07/08/2021 3:58 PM CDT): CPM, last scope clear, will follow Assessment & Plan (01/07/2021 3:22 PM CDT): This is currently well controlled with medication patient will follow-up with GI Assessment & Plan (07/07/2020 2:49 PM CDT): Controlled and seeing GI Assessment & Plan (04/02/2020 2:12 PM HAND TRIMMER): Seeing GI and clear Assessment & Plan (03/25/2020 2:47 PM HAND TRIMMER): This is well controlled, patient is seen GI, last scope revealed clean tissue with no evidence of Wong's Assessment & Plan (12/18/2019 8:01 AM CDT): This appears well controlled, continue current medications follow-up with GI as scheduled Assessment & Plan (08/30/2019 9:43 AM CDT): CPM, f/u with GI, just had EGD and barrets appears resolved Assessment & Plan (09/27/2018 5:10 PM CDT): Schedule EGD for further evaluation. Follow-up in 3 months. Carpal tunnel syndrome on both sides 04/01/2016 HLD (hyperlipidemia) 04/01/2016 Overview (08/01/2018): Continue current medications, labs as ordered, work on diet exercise and weight loss. Follow-up in 6 months. Assessment & Plan (08/10/2021 2:36 PM CDT): Patient is to continue present medications, work on diet and exercise as discussed, we did discuss the medications and potential side effects and signs and symptoms that would warrant calling office. Follow up routine. Assessment & Plan (07/30/2020 8:49 AM CDT): Patient is to continue present medications, work on diet and exercise as discussed, we did discuss the medications and potential side effects and signs and symptoms that would warrant calling office. Follow up routine. Assessment & Plan (07/07/2020 2:50 PM CDT): Patient is to continue present medications, work on diet and exercise as discussed, we did discuss the medications and potential side effects and signs and symptoms that would warrant calling office. Follow up routine. Assessment & Plan (03/25/2020 2:47 PM HAND TRIMMER): Patient is to continue present medications, work on diet and exercise as discussed, we did discuss the medications and potential side effects and signs and symptoms that would warrant calling office. Follow up routine. Assessment & Plan (12/18/2019 8:02 AM CDT): Patient is to continue present medications, work on diet and exercise as discussed, we did discuss the medications and potential side effects and signs and symptoms that would warrant calling office. Follow up routine. Assessment & Plan (08/30/2019 9:43 AM CDT): Patient is to continue present medications, work on diet and exercise as discussed, we did discuss the medications and potential side effects and signs and symptoms that would warrant calling office. Follow up routine. MARIE (obstructive sleep apnea) 04/01/2016 Assessment & Plan (05/22/2024 1:39 PM HAND TRIMMER): Continue f/u with Dr. Pearson on regular basis and will follow response. Assessment & Plan (07/06/2023 4:45 PM CDT): Encouraged CPAP Assessment & Plan (07/13/2022 3:53 PM CDT): Continue c-pap Assessment & Plan (01/12/2022 3:46 PM CDT): On c-pap Assessment & Plan (08/10/2021 2:36 PM CDT): Continue CPAP Assessment & Plan (07/08/2021 3:58 PM CDT): Continue c-pap Assessment & Plan (01/23/2021 9:58 AM CDT): The patient will continue with CPAP therapy at 12 cm water pressure to treat obstructive sleep apnea. The patient denied need for supplies. [facility] [employer]. The patient and I did discuss the recall in depth. The patient was instructed to examine CPAP machine prior to use for debris. The patient was also provided information on CPAP registration and recall for replacement. Patient is benefitting from CPAP therapy Assessment & Plan (01/07/2021 3:23 PM CDT): Continue CPAP Assessment & Plan (10/15/2020 2:51 PM CDT): The patient will continue with CPAP therapy at 12 cm water pressure to treat obstructive sleep apnea. I did provide the patient an order for new CPAP machine set at 12 cm water pressure with heated humidity and a full set of supplies. The patient and I also discussed the possible need for nocturnal polysomnogram split night protocol no MSLT if required by insurance to recertify for CPAP therapy. The patient is agreeable to follow through with recommendation if it is necessary due to insurance requirements. [facility] [employer]. The patient is benefitting from CPAP therapy. Assessment & Plan (08/13/2020 1:56 PM CDT): The patient will continue with CPAP therapy at 12 cm water pressure to treat obstructive sleep apnea. The patient denied need for supplies. The DME company is [employer]. The patient is benefitting from CPAP therapy. Assessment & Plan (07/30/2020 8:49 AM CDT): Continue CPAP follow-up routine Assessment & Plan (12/18/2019 8:02 AM CDT): Continue CPAP Osteoarthritis 04/01/2016 Seasonal allergies 04/01/2016 Plantar fasciitis, bilateral 04/01/2016 Degeneration of intervertebral disc of cervical region 07/11/2014 Assessment & Plan (07/06/2023 4:45 PM CDT): This is a stable chronic condition we will continue to Assessment & Plan (11/03/2022 1:45 PM CDT): Ongoing and chronic, will follow Assessment & Plan (10/27/2022 3:57 PM CDT): Chronic and controlled Assessment & Plan (01/07/2021 3:22 PM CDT): This is currently stable will continue to follow Assessment & Plan (12/18/2019 8:01 AM CDT): This is a chronic ongoing problem that is well controlled with seen his chiropractor further evaluation and treatment based on signs and symptoms. Resolved Problems Problem Noted Date Diagnosed Date Resolved Date Light headedness 11/05/2016 12/13/2019 Encounters Date Type Department Care Team Description 09/18/2024 Orders Only [facility] [address] [facility] [place] [address] Jovi Batista MD Chronic bilateral low back pain without sciatica (Primary Dx) 07/23/2024 Telephone [facility] at [address] [phone] Jovi Batista MD 8/5/[address] Batista in [facility] has been cancelled 06/26/2024 1:45 PM CDT Office Visit [facility] at [address] [id number] Jovi Batista MD Scrotal swelling (Primary Dx); BMI 36.0-36.9,adult; Severe obesity (BMI 35.0-39.9) with comorbidity (HCC) from Last 3 Months Immunizations Immunization Administration Dates Next Due Anthrax 11/10/2011, 0,11/12/2008,06/09,09/23/1998,01/31/1998,01/09/1998 ,12/25/1997 H1N1 Inj 04/04/2009 Hep A, Adult 06/01/1996 Hep B Vaccine 01/22/2008,08/02/2007,06/15/2007 Influenza LAIV (Nasal) 02/27/2013,2010,02/23/2010,02/11,01/22/2008 Influenza, Quadrivalent, Rec ombinant, Egg Free, Preservative Free, Intramuscular 02/07/2018 Influenza, Quadrivalent, Spl it, Preservative Free, Intramuscular 02/11/2016,02/03/2015 Influenza, Split 02/16/2007, 6,03/05/2005,04/14,02/14/2003,04/06/2002,03/07/2002 ,03/07/2001,02/28/1997 Influenza, Trivalent, Cell Culture-based MDCK, Preservative Free, Antibiotic Free, Intramuscular 02/19/2017 Influenza, Trivalent, IM (MDV) 02/02/2017,2011 Influenza, Trivalent, Preser vative Free, Intramuscular 01/16/2014 Influenza, Unspecified 06/26/2024(Deferr ed: Patient Refused),05/22/2024(Deferred: Patient Refused),02/21/2024(Deferred: Patient Refused),12/27/2023(Deferred: Patient Refused),04/18/2023(Deferred: Patient Refused),04/18/2023(Deferred: Patient Refused),01/22/2023(Deferred: Patient decision),04/18/2022(Deferred: Patient Refused),03/15/2022(Deferred: Patient decision),03/06/2022(Deferred: Patient decision),02/27/2022(Deferred: Patient decision),02/23/2022(Deferred: Patient decision),03/12/2021(Deferred: Patient Refused),03/10/2021(Deferred: Patient Refused),02/07/2018 Influenza, Whole 02/14/2003, 2,03/07/2002,03/07,03/21/2000,02/09/1999,01/31/1998 ,02/28/1997 Meningococcal MCV4P (Menactra) 01/22/2008 Meningococcal Polysaccharide (Menomune) 12/17/1993 OPV 12/17/1993 PPD TEST 09/15/2004,11/26/1998 Pneumococcal Polysaccharide PPV23 12/14/2016 Smallpox 11/12/2008 Td, adsorbed 12/09/2003,12/17/1993 Tdap 06/21/2011 Typhoid H-P SQ/ID 04/14/2004,11/17/2000,11/26/18 99 Typhoid Inactivated 11/10/2011,05/06/2009,2007 Typohid AKD SQ 11/02/1995 Yellow Fever 03/04/2008,09/02/1995 Surgical History Surgery Date Site/Laterality Comments VASECTOMY TONSILLECTOMY SHOULDER ARTHROSCOPY Right ESOPHAGOGASTRODUODENOSCOPY 10/16/2018 SHOULDER SURGERY 04/18/2021 - 04/17/2022 Left Medical History Medical History Date Comments Arthritis Carpal tunnel syndrome Plantar fasciitis Allergic Hyperlipidemia GERD (gastroesophageal reflux disease) Motion sickness PONV (postoperative nausea and vomiting) Allergic rhinitis Benign prostatic hyperplasia Anxiety Sleep apnea CPAP Asthma related to aller gies, sometimes gets wheezy Wong's esophagus last scope w as clear Family History Medical History Relation Name Comments No Known Problems Father Breast cancer Maternal Grandmother No Known Problems Mother Breast cancer Mother's Sister Pancreatic cancer Paternal Grandfather Relation Name Status Comments Father (Age 51) Maternal Grandmother Mother Alive Mother's Sister Paternal Grandfather Sister 1 Alive Sister 2 Alive Sister 3 Alive Social History Tobacco Use Types Packs/Day Years Used Date Smoking Tobacco: Former Cigarettes 0.5 15 0 04/18/1990 - 04/18/2005 Smokeless Tobacco: Never Tobacco Cessation:Counseling Given: Not Answered Alcohol Use Standard Drinks/Week Comments Yes 0 (1 standard drink = 0.6 oz pur e alcohol) Rarely AUDIT-C Answer Date Recorded Q1: How often do you have a drink containing alc ohol? 2-4 times a month 12/05/2023 Q2: How many drinks containi ng alcohol do you have on a typical day when you are drinking? 1 or 2 12/05/2023 Frequency of Binge Drinking Not on file 11/16 PHQ-2 Answer Date Recorded PHQ-2 Total Score (If total score is 3 or more points, staff should administer the PHQ-9) 0 06/26/2024 Personal Safety Answer Date Recorded Have you ever been in or are you currently in a harmful physical or emotional relationship or is someone making you feel afraid or unsafe? Denies 12/09/2023 Sex and Gender Information Value Date Recorded Sex Assigned at Not on file Legal Sex Male 4:48 AM HAND TRIMMER Gender Identity Not on file Sexual Orientation Not on file Obstetrics History Last Filed Vital Signs Vital Sign Reading Time Taken Comments Blood Pressure 124/74 06/26/2024 1:49 PM CDT Pulse 77 06/26/2024 1:49 PM CDT Temperature 36.7 C (98.1 F) 06/26/2024 1:49 PM CDT Respiratory Rate 14 12/09/2023 3:08 PM CDT Oxygen Saturation 98% 06/26/2024 1:49 PM CDT Inhaled Oxygen Concentration - - Weight 122 kg (268 lb 14.4 oz) 06/26/2024 1:49 P M CDT Height 182.9 cm (6') 06/26/2024 1:49 PM CDT Body Mass Index 36.47 06/26/2024 1:49 PM CDT Plan of Treatment Health Maintenance Due Date Last Done Comments Hepatitis C Screening 1975 DTaP/Tdap/Td Vaccine (2 - Td or Tdap) 06/20/2021 06/21/2011, 12/09/2003, 12/17/1993 Regular Well Visit/Exam 18-64 01/12/2023 01/12/2022, 01/07/2021, 12/18/2019, Additional history exists Covid-19 Vaccine ( season) 2023 12/03/2020 Influenza Vaccine (Season Ended) 2024 02/07/2018, 02/07/2018, 02/19/2017, Additional history exists Depression Screening 06/26/2025 06/26/2024, 05/22/2024, 02/21/2024, Additional history exists Colon Cancer Screening-Colonoscopy 08/18/2031 08/17/2021, 08/17/2021 Hepatitis B Screening Completed 01/22/2008 , 08/02/2007, 06/15/2007 Pneumococcal vaccine <65 Aged Out 12/14/2016 No longer eligible based on patient's age to complete this topic Medical Devices Implanted Type Area Report Writer Device Identifier Shelf Expiration Date Model / Serial / Lot [employer] Sleep Lab Technologist Large Eyelet Pectoralis Button Fixation Latex Free [id number] - [id number] Implanted:Qty: 1 on 07/27/2021 by Joe James MD at [facility] [employer] [id number] 05/18/2025 AR-2 267 / / [id number] [employer]/C R Bard Ventralight St Sepra 4.5in Uncoated Monofilament Lightweight [id number] - [id number] Implanted:Qty: 1 on 12/09/2023 by Agustin Weston MD at [facility] N/A: Umbilical [employer] 05/15/2025 [id number] / / [id number] Procedures Procedure Name Priority Date/Time Associated Diagnosis Comments COLONOSCOPY Routine 08/17/2021 from Last 3 Months or Most Recently Relevant to Health Maintenance Results * Colonoscopy (08/17/2021) Anatomical Region Laterality Modality Other Historical Provider ENDOSCOPY PROCEDURES Anabella l Result from Last 3 Months or Most Recently Relevant to Health Maintenance Insurance [facility] Advance Directives For more information, please contact: [phone] * Full Code (Latest Code Status on File) Date Activated Date Inactivated Comments 10/16/2018 11:40 AM 10/16/2018 6:22 PM * Full Code Date Activated Date Inactivated Comments 10/16/2018 11:40 AM 10/16/2018 11:40 AM Care Teams Waste Management Recycling Technician Relationship Specialty Start Date End Date Jovi Batista MD [address] [place] [address] PCP - General Family Medicine 11/22/23
--- OUTSIDE RECORDS SUMMARY | 2024-09-19 08:10 | XMS_ITS | Encounter Summary ---
Author Name [facility] of [facility] ([place]) Organization [facility] Address [address] [place] [address] Care Team Providers Care Employee Communications Manager Name Role Phone SERENE DRAPER Primary Care Provider Unavailab le Selected Encounter This section includes the information on record at NH for the Encounter. Date/Time Encounter Type Encounter Description Reason Provider Source Aug 03, 2024 12:30 PM OFFICE O/P NEW MOD 45 MIN PRIMARY CARE/MEDICINE ICD-10-CM G47.30 Sleep apnea, unspecified SIMMERING,LUIS ANGEL S IHE Encounter Template Text not used by NH Assessments - Encounter Diagnoses This section includes the primary and secondary diagnoses documented for the Encounter. Date/Time Primary/Secondary Diagnosis Diagnosis Name Provider Source Aug 03, 2024 01:10 PM PRIMARY Sleep apnea, unspecified [facility] Aug 03, 2024 01:10 PM SECONDARY Allergic rhinitis, unspecified SIMMERING,[facility] Aug 03, 2024 01:10 PM SECONDARY Anxiety disorder, unspecified [facility] Aug 03, 2024 01:10 PM SECONDARY Wong's esophagus without dysplasia [facility] Aug 03, 2024 01:10 PM SECONDARY Cervicalgia [facility] Aug 03, 2024 01:10 PM SECONDARY Contact with and exposure to other hazardous substances [facility] Aug 03, 2024 01:10 PM SECONDARY Depression, unspecified [facility] Aug 03, 2024 01:10 PM SECONDARY Elevated prostate specific antigen [facility]PSA] [facility] Aug 03, 2024 01:10 PM SECONDARY Gastro-esophageal reflux disease without esophagitis [facility] EU[facility] Aug 03, 2024 01:10 PM SECONDARY Hyperlipidemia, unspecified [facility] Aug 03, 2024 01:10 PM SECONDARY Low back pain, unspecified SIM[facility]ING,[facility] Aug 03, 2024 01:10 PM SECONDARY Overweight [facility] Aug 03, 2024 01:10 PM SECONDARY Polyp of colon [facility] Aug 03, 2024 01:10 PM SECONDARY Pure hypercholesterolem ia, unspecified [facility] Plan of Treatment: Future Appointments (+ 6 months) and Future Tests (+/- 45 days) The Plan of Treatment section includes future care activities for the [facility] This section includes future appointments and future orders which are active, pending or scheduled. Future Appointments This section includes appointments that were scheduled to occur 6 months from the date of the Encounter, up to a maximum of 20 appointments. The data comes from all [place] treatment facilities. Appointment Date/Time Appointment Type Appointme nt Facility Name Jan 31, 2025 01:30 PM AMBULATORY - MEDICINE [facility] Lab Results: +/- 30 days of the encounter This section includes the Chemistry and Hematology Lab Results on record with NH for the patient. Radiology Reports and Pathology Reports are provided separately, in subsequent sections. Lab Results This section contains the Chemistry/Hematology Results that were resulted 30 days before or 30 daysafter the date of the Encounter. Date/Time Source Result Type Result - Unit Interpretation Reference Range Specimen Type Comment Aug 03, 2024 01:25 PM [facility] TESTOSTERONE, FREE PANEL SERUM Specimen Type: SERUM Comment: For additional information, please refer to http://education. [employer]. [employer]ables/faq/ TotalTestosterone [id number] (This link is being provided for informational/ educational purposes only.) This test was developed and its analytical performance characteristics have been determined by [employer] [place], [place]. It has not been cleared or approved by the U.S. Food and Drug Administration. This assay has been validated pursuant to the CLIA regulations and is used for clinical purposes. Test Performed by [facility], [employer] [facility], [address] [place], [place] Drew Dhillon M.D., Ph.D., Director of Laboratories , CLIA [id number] Ordering Provider: SERENE DRAPER Report Released Date/Time: Aug 03, 2024 12:50 PM Reporting Lab: [address] [address] Performing Lab: [facility] [id number] [place] [address] TESTOSTERONE, TOTAL 230 ng/dL L 250-1100 ALBUMIN (PB-sendout) 4.9 g/dL 3.6-5.1 TESTOSTERONE,FREE (sendout) 42.9 pg/mL L 4 6.0-224.0 TESTOSTERONE,BIOAVAILABLE (MA-PB-SO 95.6 ng/dL L 110.0-575.0 SEX HORMONE BINDING GLOBULIN 18 nmol/L 1 0-50 Aug 03, 2024 01:25 PM [facility] COMPREHENSIVE METABOLIC PANEL PLASMA Specimen Type: PLASMA Comment: No hemolysis noted. Ordering Provider: SERENE DRAPER Report Released Date/Time: Aug 03, 2024 12:50 PM Reporting Lab: [address] [address] Performing Lab: [address] [address] CREATININE 0.96 mg/dL 0.7-1.3 UREA NITROGEN 20.5 mg/dL 9.0-25.0 GLUCOSE 100 mg/dL H 72-99 SODIUM 138 meq/L 136-145 POTASSIUM 4.3 meq/L 3.5-5 CHLORIDE 105 meq/L 98-107 CARBON DIOXIDE 22 meq/L 22-31 CALCIUM 9.3 mg/dL 8.4-10.4 PROTEIN 7.5 g/dL 6-8.6 ALBUMIN 4.7 g/dL 3.4-5 TOTAL BILIRUBIN 0.5 mg/dL 0.2-1.2 ALKALINE PHOSPHATASE 68 U/L 40-150 AST/SGOT 56 U/L H 5-34 ALT/SGPT 113 U/L H 8-40 EGFR (CKD-EPI 2020) 96.9 >60 Aug 03, 2024 01:25 PM [facility] LIPID PANEL (STL) PLASMA Specimen Ty pe: PLASMA Comment: No hemolysis noted. Ordering Provider: SERENE DRAPER Report Released Date/Time: Aug 03, 2024 12:50 PM Reporting Lab: [address] [address] Performing Lab: [address] [address] CHOLESTEROL 258 mg/dL H 0-200 TRIGLYCERIDE 220 mg/dL H 0-150 CALCULATED LDL 173 mg/dL HDL(New) 41 mg/dL >40 Aug 03, 2024 01:25 PM [facility] CBC BLOOD Specimen Type: BLOOD No comment entered. Ordering Provider: SERENE DRAPER Report Released Date/Time: Aug 03, 2024 12:50 PM Reporting Lab: [facility] [address] [facility] [address] Performing Lab: [address] [address] WBC 7.7 10*3/uL 3.6-11.2 RBC 5.06 10*6/uL 4.10-5.70 HGB 15.4 g/dL 13.1-16.8 HCT 44.4 38.2-48.4 MCV 87.7 fL 80.0-100.0 MCH 30.4 pg 27.0-34.0 MCHC 34.7 g/dL 33.0-36.0 PLT 255 10*3/uL 150-400 MPV 10.7 fL 7.5-11.2 RDW 12.9 11.8-15.1 LYMPHOCYTES, AUTO % 23 MONOCYTES, AUTO % 7 NEUTROPHILS, AUTO % 69 EOSINOPHILS, AUTO % 1 BASOPHILS, AUTO % 0 LYMPHOCYTES, ABSOLUTE 1.74 10*3/uL 0.77- 4.50 MONOCYTES, ABSOLUTE 0.55 10*3/uL 0.19-0. 80 NEUTROPHILS, ABSOLUTE 5.30 10*3/uL 2.10- 8.00 EOSINOPHILS, ABSOLUTE 0.06 10*3/uL 0.00- 0.60 BASOPHILS, ABSOLUTE 0.02 10*3/uL 0.00-0. 20 Aug 03, 2024 01:25 PM [facility] HGA1C BLOOD Specimen Type: BLOOD No comment entered. Ordering Provider: SERENE DRAPER Report Released Date/Time: Aug 03, 2024 12:50 PM Reporting Lab: [place] [address] [facility] [address] Performing Lab: [address] [address] HGA1C 5.9 4.0-6.0 Aug 03, 2024 01:25 PM [facility] URINALYSIS (L-PB) URINE Specimen Type: URIN E No comment entered. Ordering Provider: SERENE DRAPER Report Released Date/Time: Aug 03, 2024 12:50 PM Reporting Lab: [address] [address] Performing Lab: [place] [address] [facility] [address] URINE COLOR Light-Yellow Yellow U.BILIRUBIN Negative mg/dL Negative U.PH 6.0 5.0-8.0 APPEARANCE Clear Clear U.NITRITE Negative mg/dL Negative URN.GLUCOSE Normal mg/dL Negative URN.PROTEIN Negative mg/dL URN.UROBILINOGEN Normal mg/dL Normal URN.BLOOD Negative mg/dL Negative-Trace URN.KETONES Negative mg/dL Negative-Trac e URN.LEUK.EST. Negative mg/dL Negative-Tr phillip URN.SPECIFIC GRAVITY 1.016 Aug 03, 2024 01:25 PM [facility] URINE DRUG SCREEN (STL) URINE Speci men Type: URINE Comment: The cut-off value for Fentanyl was laboratory developed and its performance characteristics confirmed by the [facility] laboratory thru method comparison with reference laboratory and medication chart review. The laboratory is regulated under CLIA as qualified to perform high-complexity testing. Fentanyl is used for clinical purposes in conjunction with other laboratory tests. Ordering Provider: SERENE DRAPER Report Released Date/Time: Aug 03, 2024 12:50 PM Reporting Lab: [facility] [address] [facility] [address] Performing Lab: [address] [address] ETHANOL <10 mg/dL 0-9 AMPHET/METHAMPHETAMINE Negative ng/mL COCAINE METABOLITES Negative ng/mL BENZODIAZEPINES (STL) Negative ng/mL CANNABINOIDS Negative ng/mL METHADONE Negative ng/mL OPIATES Negative ng/mL CREATININE URINE/OTHERS 91.6 mg/dL 63-16 6 OXYCODONE (RHLQP-WSG-CC) Negative ng/mL BUPRENORPHINE (STL-PB-MA) Negative ng/mL FENTANYL (STL) Negative ng/mL Aug 03, 2024 01:25 PM [facility] B12 SERUM Specimen Type: SERUM Comment: The listed sex of this patient may not be a typical indication for this test. Therefore, reference ranges or interpretive criteria listed may not be valid. Clinical correlation suggested. Ordering Provider: SERENE DRAPER Report Released Date/Time: Aug 03, 2024 12:50 PM Reporting Lab: [address] [address] Performing Lab: [address] [address] B12 571 pg/mL 213-816 Aug 03, 2024 01:25 PM [facility] IRON/TIBC PROFILE SERUM Specimen Ty pe: SERUM No comment entered. Ordering Provider: SERENE DRAPER Report Released Date/Time: Aug 03, 2024 12:50 PM Reporting Lab: [address] [address] Performing Lab: [address] [address] TIBC 299 ug/dL 250-450 TRANSFERRIN 239 mg/dL 163-344 IRON SATURATION 49 20-50 IRON 147 ug/dL 65-175 Aug 03, 2024 01:25 PM [facility] PROST. SPECIFIC AG.(PB-STL) SERUM Specimen Ty pe: SERUM Comment: The listed sex of this patient may not be a typical indication for this test. Therefore, reference ranges or interpretive criteria listed may not be valid. Clinical correlation suggested. Ordering Provider: SERENE DRAPER Report Released Date/Time: Aug 03, 2024 12:50 PM Reporting Lab: [facility] [address] [facility] [address] Performing Lab: [place] [address] [facility] [address] PROST. SPECIFIC AG.(PB-STL) 2.671 ng/mL 0-4 Aug 03, 2024 01:25 PM [facility] TSH W/ REFLEX FT4 (STL) PLASMA Speci men Type: PLASMA No comment entered. Ordering Provider: SERENE DRAPER Report Released Date/Time: Aug 03, 2024 12:50 PM Reporting Lab: [address] [address] Performing Lab: [address] [address] TSH 0.509 u[IU]/mL 0.47-5 Aug 03, 2024 01:25 PM [facility] VITAMIN D, 25-HYDROXY SERUM Specimen Type: SE RUM Comment: The listed sex of this patient may not be a typical indication for this test. Therefore, reference ranges or interpretive criteria listed may not be valid. Clinical correlation suggested. Ordering Provider: SERENE DRAPER Report Released Date/Time: Aug 03, 2024 12:50 PM Reporting Lab: [facility] [address] Performing Lab: [facility] [address] [facility] [address] VITAMIN D, 25-HYDROXY 24.1 ng/mL L 30-96 Aug 03, 2024 01:25 PM [facility] URIC ACID PLASMA Specimen Type: PLASMA Comment: No hemolysis noted. Ordering Provider: SERENE DRAPER Report Released Date/Time: Aug 03, 2024 12:50 PM Reporting Lab: [facility] [address] [place] [phone] Performing Lab: [facility] [address] [facility] [address] URIC ACID 6.9 mg/dL 3.5-7.2 Vital Signs: All taken on the encounter date This section contains inpatient and outpatient Vital Signs collected on the date of the Encounter. Date/Time Temperature Pulse Blood Pressure Respiratory Rate SP02 Pain Height Weight Body Mass Index Source Aug 03, 2024 12:34 PM 98 90 125/84 20 93 2 72 276 38 [facility] Social History: Smoking Status (Most current) and Tobacco Use (All prior to encounter date) This section includes the most current, and the historical, smoking and tobacco- related health factors from the NH facility where the Encounter took place. Current Smoking Status This section includes the most current smoking, or tobacco-related health factor, from the NH facility where the Encounter took place. Date/Time Current Smoking Status Comment Facil ity Aug 03, 2024 12:30 PM VA-TOBACCO USE FORMER CIGARETTES [facility] Tobacco Use History This section includes a history of the smoking, or tobacco-related health factors, that were collected on or before the date of the Encounter. The data comes from the [place] facility where the Encounter took place. Date/Time Smoking Status/Tobacco Use Comment F acility Aug 03, 2024 12:30 PM VA-TOBACCO USE FORMER CIGARETTES [facility] Encounter Notes: All associated encounter notes This section contains the clinical notes associated to the Encounter. Date/Time Encounter Note(s) Provider Source September 05, 2024 12:33 PM PHYSICIAN LETTERS: LOCAL TITLE: TEST RESULT GENERAL LETTER ST STANDARD TITLE: PHYSICIAN LETTERS DATE OF NOTE: SEPTEMBER 05, 2024@12:33 ENTRY DATE: SEPTEMBER 05, 2024@12:33:55 AUTHOR: SERENE DRAPERIGNER: URGENCY: STATUS: COMPLETED [facility] [address] [place] [address] SEPTEMBER 05, 2024 CAMILA LANDA [address] [place], [place] [address] Dear Camila Landa, I would like to update you on your recent test results. LIPID PROFILE - High cholesterol and triglycerides (lipids) are risk factors for heart disease. Your cholesterol should fall between 140 and 200, and your triglycerides levels should be less than or equal to 150. HDL is the good cholesterol and should ideally be greater than 40. LDL is the bad cholesterol and optimal levels should be less than 100 (near optimal is between 100 and 129). TRIGLYCERIDE 220 H mg/dL 08/03/2024 13:25 CHOLESTEROL 258 H mg/dL 08/03/2024 13:25 HDL(New) 41 mg/dL 08/03/2024 13:25 CALCULATED LDL 173 mg/dL 08/03/2024 13:25 No DIRECT LDL EO data found The results are similar to previous values and not a clinical concern. Your cholesterol is elevated. Please avoid fried foods, Red meat and Fatty foods to help lower your cholesterol. GLUCOSE - Your blood sugar or glucose level result GLUCOSE GLUCOSE 100 H mg/dL 08/03/2024 13:25 These readings are within normal limits. HEMOGLOBIN A1C - Gives us information about your diabetes (sugar or glucose) control over the past 3 months. Your target is to keep your A1C below 7 %. HGA1C 5.9 % 08/03/2024 13:25 These readings are within normal limits. CBC - A complete blood count (CBC) gives important information about the kinds and numbers of cells in the blood, especially red blood cells, white blood cells, and platelets. HGB 15.4 g/dL 08/03/2024 13:25 HEMATOCRIT 44.4 % (08/03/24 13:25) PLT 255 10*3/uL 08/03/2024 13:25 WHITE BLOOD COUNT 7.7 10*3/uL (08/03/24 13:25) These readings are within normal limits. IRON STUDIES - Test to show iron deficiency. IRON 147 ug/dL 08/03/2024 13:25 TIBC 299 ug/dL 08/03/2024 13:25 IRON SATURATION 49 %SAT 08/03/2024 13:25 No FERRITIN EO data found These readings are within normal limits. B12 - Helps maintain healthy nerve cells, red blood cells, and is also needed to make DNA. B12 571 pg/mL 08/03/2024 13:25 These readings are within normal limits. CHEM 7 - This is important information about the current status of your kidneys, liver, and electrolyte and acid/base balance as well as of your blood sugar and blood proteins. SODIUM 138 mEq/L 08/03/2024 13:25 POTASSIUM 4.3 mEq/L 08/03/2024 13:25 CHLORIDE 105 mEq/L 08/03/2024 13:25 UREA NITROGEN 20.5 mg/dL 08/03/2024 13:25 CREATININE 0.96 mg/dL 08/03/2024 13:25 CALCIUM 9.3 mg/dL 08/03/2024 13:25 CARBON DIOXIDE 22 mEq/L 08/03/2024 13:25 GLUCOSE 100 H mg/dL 08/03/2024 13:25 EGFR (CKD-EPI 2020) 96.9 08/03/2024 13:25 These readings are within normal limits. LIVER FUNCTION PANEL - These are tests for liver function: PROTEIN 7.5 g/dL 08/03/2024 13:25 ALBUMIN 4.7 g/dL 08/03/2024 13:25 ALBUMIN (PB-sendout) 4.9 g/dL 08/03/2024 13:25 TOTAL BILIRUBIN 0.5 mg/dL 08/03/2024 13:25 ALKALINE PHOSPHATASE 68 U/L 08/03/2024 13:25 AST/SGOT 56 H U/L 08/03/2024 13:25 ALT/SGPT 113 H U/L 08/03/2024 13:25 The results are similar to previous values and not a clinical concern. Your liver enzymes are slightly elevated. This can be due to alcohol consumption,fatty liver along with side effects from medication. Please avoid alcohol and watch your intake of carbohydrates. PSA - Prostate-specific antigen is a protein produced by cells of the prostate gland. The PSA test measures the level of PSA in the blood. PSA PROST. SPECIFIC AG.(PB-STL) 2.671 ng/mL 08/03/2024 13:25 These readings are within normal limits. TSH - Thyroid-stimulating hormone (also known as TSH or thyrotropin) is a peptide hormone synthesized and secreted by thyrotrope cells in the anterior pituitary gland, which regulates the endocrine function of the thyroid gland. TSH TSH 0.509 uIU/mL 08/03/2024 13:25 These readings are within normal limits. VITAMIN D - Helps promote the proper utilization of calcium and phosphorus, thereby producing proper bone maintenance. VITAMIN D, 25-HYDROXY 24.1 L ng/mL 08/03/2024 13:25 The results are similar to previous values and not a clinical concern. Your vitamin D was low. Please take 5000 units of over the counter vitamin D daily. No Prescription needed. URINALYSIS - A urinalysis (or UA) is an array of tests performed on urine and one of the most common methods of medical diagnosis. URINALYSIS URINE COLOR Light-Yellow 08/03/2024 13:25 APPEARANCE Clear 08/03/2024 13:25 U.PH 6.0 08/03/2024 13:25 U.BILIRUBIN Negative mg/dL 08/03/2024 13:25 U.NITRITE Negative mg/dL 08/03/2024 13:25 These readings are within normal limits. OTHER TEST RESULTS RADIOLOGY (NON-INVASIVE TEST RESULTS): your testosterone level was slightly low. TESTOSTERONE, FREE PANEL RED/NO-GEL SERUM SP #[id number] Collection time: Aug 03, 2024@13:25 Test Name Result Units Range --------- ------ ----- ----- TESTBIO 95.6 L ng/dL 110.0 - 575.0 SEXHORM 18 nmol/L 10 - 50 ALBUMIN (PB-sendout) 4.9 g/dL 3.6 - 5.1 FR LUTHER 42.9 L pg/mL 46.0 - 224.0 TESTOSTERONE, TOTAL 230 L ng/dL 250 - 1100 PLAN Please continue your treatment as we discussed during your visit. If you have any questions please call your casework supervisor. I look forward to seeing you at your next clinic appointment. Thank you for choosing the [facility] for your healthcare. FUTURE APPOINTMENTS: 01/31/2025 13:30 [facility]-NOC[facility] PACT 1 PCP Sincerely, SERENE DRAPER MD STAFF PHYSICIAN CAMILA LANDA JAMES [facility] Aug 03, 2024 12:53 PM PRIMARY CARE INITIAL EVALUATION NOTE: LOCAL TITLE: PRIMARY CARE PROVIDER NEW VISIT [facility] STANDARD TITLE: PRIMARY CARE INITIAL EVALUATION NOTE DATE OF NOTE: AUG 03, 2024@12:53 ENTRY DATE: AUG 03, 2024@12:53:12 AUTHOR: SERENE DRAPERIGNER: URGENCY: STATUS: COMPLETED Patient is 49 and WHITE Self Identified Gender - NONE FOUND Reason for visit:New Patient Chief Complaint: low back pain. History of Present Illness: low back pain. no sciatica. pt seeing outside chiropractor for neck and back pain. Problem List: 1) Sleep Apnea ([facility] [id number]) 2) Allergic Rhinitis ([facility] [id number]) 3) GERD - Gastro-Esophageal Reflux Disease ([facility] [id number]) 4) Wong's Esophagus ([facility] [id number]) 5) Hypercholesterolemia ([facility] [id number]) 6) LBP - Low back pain 7) Hyperlipidemia ([facility] [id number]) 8) Depression ([facility] [id number]) 9) Anxiety ([facility] [id number]) 10) Patient Overweight ([facility] [id number]) 11) Cervical pain Immunization: No data available Family History: mother: alive and well. Father: decceased age 51. due to iv drug use. Social History: non smoker. 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 BRANCH(ES) OF SERVICE: [employer] SPECIFIC YEARS OF SERVICE: 1627-5722 LOCATION OF SERVICE: [facility] ENVIRONMENTAL EXPOSURE: [place]ulf war exposure. Medication Review: The essential med list for review which includes the patient's active VA prescriptions and if applicable, remote VA prescriptions, non-VA prescriptions, and discontinued VA prescriptions within the last 90 days and known allergies including local and remote allergies have been reviewed. Allergies:SEASONAL ALLERGIES Active and Recently Outpatient Medications (excluding Supplies): Pending Outpatient Medications Status 1) FAMOTIDINE 40MG TAB TAKE ONE TABLET BY MOUTH TWICE A DAY PENDING Indication: FOR GASTROESOPHAGEAL REFLUX DISEASE 2) OMEPRAZOLE 40MG EC CAP TAKE ONE CAPSULE BY MOUTH EVERY PENDING MORNING BEFORE A MEAL TAKE 30 MINUTES PRIOR TO FOOD. Indication: FOR GASTROESOPHAGEAL REFLUX DISEASE 3) SERTRALINE HCL 50MG TAB TAKE ONE-HALF TABLET BY MOUTH EVERY PENDING MORNING Indication: FOR DEPRESSION 4) TAMSULOSIN HCL 0.4MG CAP TAKE ONE CAPSULE BY MOUTH EVERY PENDING EVENING APPROXIMATELY 30 MINUTES AFTER THE SAME MEAL EACH DAY Indication: FOR BENIGN PROSTATIC HYPERPLASIA Review of Systems: General:No Complaints of fever, chills, malaise, fatigue, night sweats, weight gain, weight loss, swollen glands, temp intolerance. Integumentary (skin): No complaints of diaphorectic, bruise, rash, lesions Ear, Nose, Throat: No complaints of blurred vision, glaucoma, cataracts, headache, syncope, dizziness, vertigo, rhinitis, epistaxis, congestion, sinus pain, sore neck, hoarseness, sore throat, oral lesions, earache, difficulty hearing, hearing loss, tinnitus. Respiratory: No complaints of dyspnea, wheezing, hemoptysis, cough. Cardiovascular: No complaints of SOB, cough, wheezing, chest pain, heart murmur, hemoptysis, orthopnea/PND, palpatations, pedal edema, claudication. Gastrointestinal: No complaints of weight change, poor appetite, heartburn, nausea, vomiting, anorexia, abdominal pain, dysphagia, distention, cancer, constipation, diarrhea, change in bowel habits, reflux, ulcer, food, intolerance, melana, bloody stools, hemorrhoids. Urinary: No complaints of hematuria, nocturia, polyuria, dysuria, nocturia, pain/buring on urination, hesitancy, urinary retention, incontinence. Musculoskeletal: No complaints of weakness, pain, stiffness, back pain, joint pain, arthritis, edema, DVT, claudification, gout. Neurological: No complaints of weakness, tremors, irritable, sleep disturbance, memory loss, headache, unsteady, lethargic, dizziness, syncope, paralysis, numbness, seizures, impaired speech, depression, alcoholism, mood changes, post-tramatic stress disorder, suicidal thoughts Physical Exam VITALS (most recent, as listed in the electronic record): B/P: 125/84 (08/03/2024 12:34) Pulse: 90 (08/03/2024 12:34) Temperature: 98 F [36.7 C] (08/03/2024 12:34) Weight: 276 lb [125.19 kg] (08/03/2024 12:34) Height: 72 in [182.9 cm] (08/03/2024 12:34) BMI: 37.5 Pain: 2 (08/03/2024 12:34) (0-10 scale) nad General: WD, WN in NAD, pleasant affect Skin: no lesions or rashes noted. HEENT: NC/AT, PERRL, EOMI, no scleral icterus, TMs intact, posterior pharynx is clear, no tonsillar adenopathy Neck: Supple, no cervical MADYSON, no thyromegaly or goiters palpated. Lungs: CTA bilat, no W/R/R Heart: RRR, nl S1/S2, no murmurs, no S3/S4 gallops. Abdomen: Soft, NT/ND. No HSM or masses palpated. Musculoskeletal: 2+ deep tendon reflexes bilaterally, 5/5 motor and sensory intact of UE/LE Back: Normal curvature and mobility. No CVA tenderness. Extremities: No edema, pedal pulses intact No penile lesions/discharge, testicles descended bilaterally, no palpable masses Data Review: No HEMOGLOBIN A1C EO data found ========= Lipid Panel: No LIPID PANEL EO data found ========= CMP: No COMPREHENSIVE METABOLIC PANEL EO data found ========= CBC: No CBC EO data found ========= PSA: No PSA EO data found ========= TSH: No TSH (1YR) EO data found ========= UA: No URINALYSIS EO data found ========= Vitamin D: No VITAMIN D EO data found ========= Micral/Creat Profile: No data available ========= Result: Acceptable Follow-up Action: Data results reviewed with patient and/or caregiver. Assessment/Plan: 1) Sleep Apnea (SCT 73706150) using cpap. 2) Allergic Rhinitis ([facility] [id number]) Allergic rhinitis: medication use reviewed with patient Symptoms and therapy discussed. all questions answered. Shared decision making ocurrred. 3) GERD - Gastro-Esophageal Reflux Disease (SCT [id number]) GERD: patient was counseled regarding ferry terminal agent proton pump inhibitor use: B12 deficiency, community acquired pneumonia, Clostrium Diffocele infection and osteoporosis. Shared decision making re: this condition. 4) Wong's Esophagus (SCT [id number]) 5) Hypercholesterolemia ([facility] [id number]) Hyperlipidemia: pt counseled regarding hyperlipidemia, it's causes and need for treatment. Patient denies myopathy or other issues with medication. Counseled to continue to follow a low cholesterol diet. 6) LBP - Low back pain low back pain: etiology of back pain, treatment options and shared decision making were discussed with patient. Continue current therapy. Notify us for any changes, fever, weight loss, saddle anesthesia or loss of bowel or bladder. 7) Hyperlipidemia (SCT [id number]) Hyperlipidemia: pt counseled regarding hyperlipidemia, it's causes and need for treatment. Patient denies myopathy or other issues with medication. Counseled to continue to follow a low cholesterol diet. 8) Depression (SCT [id number]) Depression: patient counseled regarding depression. Patient denies any suicidal or homicical ideations. Medication use, risks, side effects were discussed. Shared decision making occurred. 9) Anxiety ([facility] [id number]) 10) Patient Overweight ([facility] [id number]) Patient was counseled on dietary modification, Offered a referral to a team cdl driver and possibly biodiesel operations manager. 11) Cervical pain cct chiropractor. 12) Fatigue RTC: 6 months Time spent on date of visit including face to face time, data review, and chartin CLINICAL REMINDERS COMPLETED MST Screening - V: Patient denies experiencing sexual trauma (MST). Sexual Orientation - CP,L,N,P,PH,PS,S,U: The patient thinks of their sexual orientation as: Straight or Heterosexual Toxic Exposure Screening Follow-Up - NS,P: Exposure Concern(s): 08/03/2024 Other Environmental Concerns - Toxic Exposure Concern Fuel Exposure - Toxic Exposure Concern jet fuel Follow-up Question(s): 08/03/2024 Benefits/Claims Questions - Toxic Exposure Concern Health/Medical Questions - Toxic Exposure Concern /caregiver has no health or medical questions related to their self-reported environmental exposure (RACHEL). The following connections were provided to the Franklin/caregiver: No connections needed at this time Screen for Embedded Fragments - L,N,P,S,U: SCREEN FOR EMBEDDED FRAGMENTS The patient reports no embedded fragments. COVID-19 Immunization - L,N,P,PH,U: Refused Moderna Monovalent COVID-19 vaccine Immunization: COVID-19 (MODERNA), MRNA, LNP-S, PF, 50 MCG/0.5 ML (AGES 12+ YEARS) Refusal Reason: PATIENT DECISION Patient refuses all immunization(s) in the COVID-19 group Date Documented: 08/03/24 13:02 Influenza Immunization - L,N,P,PH,U: Deferral / Refusal The patient declines to receive the recommended dose of seasonal influenza vaccine. Immunization: INFLUENZA, UNSPECIFIED FORMULATION Refusal Reason: PATIENT DECISION Patient refuses all immunization(s) in the FLU group Date Documented: 08/03/24 13:02 Avg Risk Colorectal Cancer Screen - L,N,P,PH: AVERAGE RISK colorectal cancer screening is due based on information available to this clinical reminder Patient has arranged or is choosing to arrange this care independent of and without assistance from this NH. Comment: pt to get outside ar Prior Approval/Non-formulary Drug: MEDICATION USE EVALUATION Tdap Immunization - L,N,P,PH,U: The patient declines to receive the recommended dose of Tdap vaccine. Immunization: TDAP Refusal Reason: PATIENT DECISION Patient refuses all immunization(s) in the TDAP group Date Documented: 08/03/24 13:03 /mona/ SERENE DRAPER MD STAFF PHYSICIAN Signed: 08/03/2024 13:10 SERENE DRAPER [facility] Aug 03, 2024 12:37 PM NURSING NOTE: LOCAL TITLE: V15 PACT FACE TO FACE NOTE STL STANDARD TITLE: NURSING NOTE DATE OF NOTE: AUG 03, 2024@12:37 ENTRY DATE: AUG 03, 2024@12:37:41 AUTHOR: SILVINO ANSARI COSIGNER: URGENCY: STATUS: COMPLETED Provider Visit: Patient Identifiers : Full Name Date of Reason for visit: New Patient Do you have a history of any of the following? (check all that apply): Respiratory condition(s) Surgeries (type(s) and date(s)): umbilical hernia mimi shoulder scope tonsilectomy visectomy Have you been seen by a physician, VA or private, in the last year? No Have you been hospitalized or seen in an ER in the last year? No Have you had a colonoscopy previously? Yes What location and approximate date(s)? [facility] 2022 Records request sent: Mode of Arrival: Ambulatory Allergy Review: SEASONAL ALLERGIES Allergy list reviewed and remains current. Recent Vital Signs: Temperature: 98 F [36.7 C] (08/03/2024 12:34) Pulse: 90 (08/03/2024 12:34) Respiration: 20 (08/03/2024 12:34) B/P: 125/84 (08/03/2024 12:34) Pain: 2 (08/03/2024 12:34) Wt: 276 lb [125.19 kg] (08/03/2024 12:34) Ht: 72 in [182.9 cm] (08/03/2024 12:34) BMI: 37.5 POX: 93% (08/03/2024 12:34) PERSONAL HEALTH INVENTORY Notes: No data available for PHI note titles PERSONAL HEALTH INVENTORY - MAP: No data available for PHI MAP What matters most to you in your life right now? 's Response: family Would you like to discuss any personal problem, family problem, alcohol use, drug use, or a mental or emotional illness? No My [facility] ([facility]), please select appointment type: Face to face: Yes- Done Contact provided Primary Care phone number and encouraged to call if any questions or concerns. Review that after hours nurse line [phone] and emergency room are available 08/11 for patient use. Contact verbalized good understanding. No notification required for this note. Suicide Screen - V: C-SSRS Screening Love Suicide Severity Rating Scale (C-SSRS) screener 1. Over the past month, have you wished you were or wished you could go to sleep and not wake up? No 2. Over the past month, have you had any actual thoughts of killing yourself? No 3. Over the past month, have you been thinking about how you might do this? Response not required due to responses to other questions. 4. Over the past month, have you had these thoughts and had some intention of acting on them? Response not required due to responses to other questions. 5. Over the past month, have you started to work out or worked out the details of how to kill yourself? Response not required due to responses to other questions. 6. If yes, at any time in the past month did you intend to carry out this plan? Response not required due to responses to other questions. 7. In your lifetime, have you ever done anything, started to do anything, or prepared to do anything to end your life (for example, collected pills, obtained a gun, gave away valuables, went to the roof but didn't jump)? No 8. If YES, was this within the past 3 months? Response not required due to responses to other questions. Toxic Exposure Screening - CP,DI,L,NS,P,PH,S,U: The Franklin/caregiver was asked if they believe the [place] experienced any toxic exposure(s), such as Airborne Hazards and Open Burn [place], [place] War related exposures, Agent [place], Radiation, contaminated water at [place] or other such exposures, while serving in the Armed Forces. Franklin/caregiver believes the was exposed to the following while serving in the Armed Forces: Fuel: Comment: jet fuel Franklin/caregiver was made aware of educational resources and printed information was offered and provided if desired. Health/Medical Questions All Veterans who report a health/medical question will receive follow-up from a clinician. For urgent or emergent questions, they were advised to follow local facility policy. Benefits/Claims Questions /caregiver was informed of local point of contact. Contact information for local resources: [facility] Registry Exam Program: [phone] Eligibility: [phone] JOHN [id number] ROGER [id number] [facility] Registry Exam Program: [phone] LUTHER Navigator: [id number] Environmental Health Coordinator: [id number] Blackburn [facility] Registry Exam Program: [phone] [id number] Eligibility: [phone] [id number] Toxic Exposure Screening Follow-Up reminder is needed. Name of person notified: Dr Draper Alcohol Use Screen (AUDIT-C) - V: Alcohol Screen: SCREEN FOR ALCOHOL (AUDIT-C) An alcohol screening test (AUDIT-C) was negative (score=1). 1. How often did you have a drink containing alcohol in the past year? Consider a drink to be a 12 ounce can or bottle of regular beer, 8 ounces of malt liquor, a 5 ounce glass of table wine, or a 1.5 ounce shot of liquor (like scotch, gin, or vodka). Monthly or less 2. How many drinks containing alcohol did you have on a typical day when you were drinking in the past year? One or two drinks 3. How often did you have six or more drinks on one occasion in the past year? Never Depression Screening - V: Perform PHQ-2 A PHQ-2 screen was performed. The score was 0 which is a negative screen for depression. Over the past two weeks, how often have you been bothered by the following problems? 1. Little interest or pleasure in doing things Not at all 2. Feeling down, depressed, or hopeless Not at all Homelessness/Food Insecurity Screen - DI,L,N,P,PH,PS,S,U: In the past 2 months, have you been living in stable housing that you own, rent, or stay in as part of a household? Yes - Living in stable housing. Are you worried or concerned that in the next 2 months you may NOT have stable housing that you own, rent, or stay in as part of a household? No - Not worried about housing near future The reports the following: Within the past 12 months, you worried whether your food would run out before you got money to buy more. Never true Within the past 12 months, the food you bought just didn't last and you didn't have money to get more. Never true PTSD Screening - V: PC-PTSD-5 A PTSD screening test (PC-PTSD-5) was negative (score=0). IN THE PAST MONTH, have you ever had any experience that was so frightening, horrible or traumatic. For example: A serious accident or fire a physical or sexual assault or abuse An earthquake or flood A war Seeing someone be killed or seriously injured Having a loved one through homicide or suicide 1. Have you ever experienced this kind of event? NO 2. Had nightmares about the event(s) or thought about the event(s) when you did not want to? Response not required due to responses to other questions. 3. Tried hard not to think about the event(s) or went out of your way to avoid situations that reminded you of the event(s)? Response not required due to responses to other questions. 4. Been constantly on guard, watchful, or easily startled? Response not required due to responses to other questions. 5. [place] numb or detached from people, activities, or your surroundings? Response not required due to responses to other questions. 6. [place] guilty or unable to stop blaming yourself or others for the event(s) or any problems the event(s) may have caused? Response not required due to responses to other questions. Learning Assessment: - * This patient's learning ABILITIES, BARRIERS to learning, CULTURAL and PENTECOSTALISM beliefs, and learning PREFERENCES were assessed. Following are findings of note: Patient reads well. Patient has the following hearing/auditory barrier(s) to consider when teaching: Othertinnitus LANGUAGE Patient reports that Samoan is preferred language for healthcare. Patient has the following vision barrier(s) to consider when teaching: Requires glasses/contacts for reading Patient reports learning preference is to refer to handouts. Patient reports learning preference is attending one-to-one or group demonstrations. Patient reports learning preference is looking at pictures or viewing videos. Tobacco Use Screening - AT,DE,L,M,N,P,PH,PS,RT,S,U: The patient is a former cigarette smoker. Quit smoking GREATER THAN OR EQUAL to 15 years. The patient has never used other types of tobacco. /mona/ SILVINO ANSARI Licensed Practical Nurse Signed: 08/03/2024 12:43 [facility]INO ANSARI [facility]
--- OUTSIDE RECORDS SUMMARY | 2024-09-19 08:10 | XMS_ITS | Encounter Summary ---
Author Organization [facility] Address [address] [place] [address] Care Team Providers Care Human Resources Trainer Name Role Phone Jovi Batista MD Primary Care Provider [phone] Reason for Referral * MRI/CAT/PET Scan (Routine) - Pending Review Specialty Diagnoses / Procedures Referred By Contac t Referred To Contact Radiology Diagnoses Chronic bilateral low back pain without sciatica Procedures MRI Lumbar Spine WO Contrast Jovi Batista MD [address] [place] [address] Phone: tel: fax: [address] [phone] Referral ID Status Reason Start Date Expiration Date V isits Requested Visits Authorized [id number] Pending Review 09/18/2024 10/18/2025 1 1 Encounter Details Date Type Department Care Team (Late st Contact Info) Description 09/18/2024 Orders Only [facility] [address] [place] [address] Jovi Batista MD [address] [place] [address] Chronic bilateral low back pain without sciatica (Primary Dx) Social History Tobacco Use Types Packs/Day Years Used Date Smoking Tobacco: Former Cigarettes 0.5 15 0 04/18/1990 - 04/18/2005 Smokeless Tobacco: Never Alcohol Use Standard Drinks/Week Comments Yes 0 [...] on file Legal 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 Gender Identity Not on file Sexual Orientation Not on file documented as of this encounter Plan of Treatment Scheduled Orders Name Type Priority Associated Diagnoses Orde r Schedule MRI Lumbar Spine WO Contrast Imaging Schedule Routine, Read Routine (OP Routine) Chronic bilateral low back pain without sciatica Expected: 09/18/2024, Expires: 09/18/2025 documented as of this encounter Visit Diagnoses Diagnosis Chronic bilateral low back pain without sciatica- Primary documented in this encounter Care Teams Human Resources Trainer Relationship Specialty Start Date End [place] [address] PCP - General Family Medicine 11/22/23 documented as of this encounter
--- OUTSIDE RECORDS SUMMARY | 2024-09-19 08:10 | XMS_ITS | Encounter Summary ---
Author Organization [facility] Care Team Providers Care Database Management System Specialist Name Role Phone Hollis Martinez Primary Care Provider [phone] Jovi Batista MD Primary Care Provider [phone] Encounter Details Date Type Department Care Team (Latest Contact Info) Description 11/15/2016 Orders Only [facility] ProviderBrissa MD [address] [place] [id number] Social History Tobacco Use Types Packs/Day Years Used Date Smoking Tobacco: Never Sex and Gender Information Value Date Recorded Sex Assigned at Not on file Legal 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 Historical Provider [facility] D[facility] SUNG Final Result documented in this encounter Visit Diagnoses Not on filedocumented in this encounter Additional Health Concerns Infection Onset Date Last Indicated Resolved Time COVID: Suspected 09/29/2021 09/29/2021 09/30/2021 3:05 AM CDT COVID: Suspected 09/30/2021 09/30/2021 09/30/2021 8:25 PM CDT documented as of this encounter Care Teams Database Management System Specialist Relationship Specialty Start Date End Date Hollis Martinez PA PCP - General Family Medicine 09/21/18 11/21/23 Jovi Batista MD [address] [place] [address] PCP - General Family Medicine 11/22/23 documented as of this encounter
--- OUTSIDE RECORDS SUMMARY | 2024-09-19 08:11 | XMS_ITS | Referral Summary ---
Author Organization [facility] at the [facility] Office Building Address [address] [place] [id number] Care Team Providers Care Needle Molder Name Role Phone Jovi Batista MD Primary Care Provider [phone] Encounters Date Type Department Care Team Description 09/18/2024 Orders Only [facility] [address] [place] [address] Jovi Batista MD Chronic bilateral low back pain without sciatica (Primary Dx) 07/23/2024 Telephone [facility] at [address] [address] Jovi Batista MD 11/20/[address] Batista in [facility] has been cancelled 06/26/2024 1:45 PM CDT Office Visit [facility] at [address] [address] Jovi Batista MD Scrotal swelling (Primary Dx); BMI 36.0-36.9,adult; Severe obesity (BMI 35.0-39.9) with comorbidity (HCC) from Last 3 Months Allergies No known active allergies Medications tamsulosin [...] 05/22/2024 Assessment & Plan (05/22/2024 1:40 PM PRODUCER ARBORIST MANAGER): Encoxurage 150min/week aerobic exericse. Healthy food chocies. Severe obesity (BMI 35.0-39.9) with comorbidity 05/22/2024 Assessment & Plan (06/26/2024 2:05 PM CDT): Encourage 150min/week aerobic exercise. Healthy food choices. Assessment & Plan (05/22/2024 1:40 PM PRODUCER ARBORIST MANAGER): As above. Degeneration of intervertebr al disc of lumbar region with discogenic back pain and lower extremity pain 05/22/2024 Assessment & Plan (05/22/2024 1:40 PM PRODUCER ARBORIST MANAGER): REfer to PT for evaluation and treatment [...] pulmonology Assessment & Plan (05/26/2020 3:16 PM PRODUCER ARBORIST MANAGER): May be secondary to previous smoking, CXR today per my reading with no infiltrates, trial of proventil Benign prostatic hyperplasia with weak urinary s tream 12/18/2019 Assessment & Plan (05/22/2024 1:40 PM PRODUCER ARBORIST MANAGER): Continues on tamsulosin and will follow response. [...] PT Assessment & Plan (03/25/2020 2:39 PM PRODUCER ARBORIST MANAGER): Medications, x-ray, option for PT Assessment & [...] (09/21/2018): Added automatically from request for surgery [id number] Assessment & Plan (01/12/2022 3:44 PM CDT): [...] understanding Assessment & Plan (04/02/2020 2:11 PM PRODUCER ARBORIST MANAGER): Images from the original note were not [...] understanding Assessment & Plan (03/25/2020 2:47 PM PRODUCER ARBORIST MANAGER): Images from the original note were not [...] diet Assessment & Plan (04/02/2020 2:12 PM PRODUCER ARBORIST MANAGER): Work on diet and exercise Assessment & Plan (03/25/2020 2:47 PM PRODUCER ARBORIST MANAGER): Continue current diet and exercise, I did [...] routine. Assessment & Plan (04/02/2020 2:12 PM PRODUCER ARBORIST MANAGER): porly controlled, changing to lipitor Seasonal allergies 08/02/2018 Generalized anxiety disorder 06/21/2018 Overview (02/07/2019): sending to [facility] [place] Assessment & Plan (07/06/2023 4:46 PM CDT): [...] routine Assessment & Plan (05/26/2020 3:17 PM PRODUCER ARBORIST MANAGER): Images from the original note were not [...] problems Assessment & Plan (04/02/2020 2:11 PM PRODUCER ARBORIST MANAGER): Pending consult with [facility], wants to weight for medications, no SI/HI Assessment & Plan (03/25/2020 2:46 PM PRODUCER ARBORIST MANAGER): This is pretty well controlled not using any medications will continue to follow Assessment & Plan (12/18/2019 8:01 AM CDT): This appears to be well controlled with counseling were going to continue to follow patient will inform me if there are any issues and we can consider medications. Assessment & Plan (08/30/2019 9:42 AM CDT): He wants to start with [facility], discussed s/s that would warrant urgent attention, will follow Chronic allergic rhinitis 02/15/2017 Assessment & Plan (01/12/2022 3:44 PM CDT): As needed meds Assessment & Plan (01/07/2021 3:22 PM CDT): This is currently not an issue Assessment & Plan (12/18/2019 8:01 AM CDT): Were going to continue current medications I did advise the patient that we do well on the navage system and were doing a consult to ENT Awareness of heart beat 12/08/2016 Overview (02/07/2019): negative full cardiac workup, will follow, discussed s/s that would warrant urgent attention Assessment & Plan (04/02/2020 2:12 PM PRODUCER ARBORIST MANAGER): Seen cardiology and all normal Neck pain [...] tachycardia. Assessment & Plan (03/25/2020 2:47 PM PRODUCER ARBORIST MANAGER): This is stable, patient had a full workup with Cardiology, we will continue to follow Former smoker 11/08/2016 Sensation of chest tightness 11/05/2016 S/P balloon dilatation of esophageal stricture 0 06/16/2016 Overview (02/07/2019): distal stricture, dilated with 60F tts balloon dilator, 05/2016, Dr. Vitale Assessment & Plan (05/22/2024 1:40 PM PRODUCER ARBORIST MANAGER): As above. Vitamin D deficiency 2016 Assessment & Plan (05/26/2020 3:16 PM PRODUCER ARBORIST MANAGER): Please take 5000daily BMI 31.0-31.9,adult 04/22/2016 Assessment [...] Vitale Assessment & Plan (05/22/2024 1:39 PM PRODUCER ARBORIST MANAGER): OCntinue on omeprazoel and will follow response. [...] (07/07/2020 2:49 PM CDT): Controlled and seeing Dr QUARLES Assessment & Plan (04/02/2020 2:12 PM PRODUCER ARBORIST MANAGER): Seeing GI and clear Assessment & Plan (03/25/2020 2:47 PM PRODUCER ARBORIST MANAGER): This is well controlled, patient is seen [...] routine. Assessment & Plan (03/25/2020 2:47 PM PRODUCER ARBORIST MANAGER): Patient is to continue present medications, work [...] 04/01/2016 Assessment & Plan (05/22/2024 1:39 PM PRODUCER ARBORIST MANAGER): Continue f/u with Dr. Pearson on regular [...] apnea. The patient denied need for supplies. [facility] [place] [facility]. The patient and I did discuss the [...] it is necessary due to insurance requirements. [employer]. The patient is benefitting from CPAP therapy. Assessment & Plan (08/13/2020 1:56 PM CDT): The patient will continue with CPAP therapy at 12 cm water pressure to treat obstructive sleep apnea. The patient denied need for supplies. The DME company is [employer]. The patient is benefitting from CPAP therapy. 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 Yellow Fever 03/04/2008,09/02/1995 Social History Tobacco Use Types Packs/Day Years [...] on file Legal Sex Male 4:48 AM PRODUCER ARBORIST MANAGER Gender Identity Not on file Sexual Orientation Not on file Last Filed Vital Signs Vital Sign Reading [...] 06/26/2024 1:49 PM CDT Plan of Treatment Not on file Medical Devices Implanted Type Area Lining Presser Device Identifier Shelf Expiration Date Model / Serial / Lot [employer] Absorber Operator Large Eyelet Pectoralis Button Fixation Latex Free [id number] - [id number] Implanted:Qty: 1 on 07/27/2021 by Joe James MD at [facility] [employer] [id number] 05/18/2025 AR-2 267 / / [id number] [employer]/C R Bard Ventralight St Sepra 4.5in Uncoated Monofilament Lightweight [id number] - [id number] Implanted:Qty: 1 on 12/09/2023 by Agustin Weston MD at [facility] N/A: Umbilical [employer] 05/15/2025 [id number] / / [id number] Procedures Procedure Name Priority Date/Time Associated Diagnosis Comments COLONOSCOPY Routine 08/17/2021 from Last 3 Months or Most Recently Relevant to Health Maintenance Results * Colonoscopy (08/17/2021) Anatomical Region Laterality Modality Other us Historical Provider ENDOSCOPY PROCEDURES Anabella l Result from Last 3 Months or Most Recently Relevant to Health Maintenance Insurance [facility] Advance Directives For more information, please contact: [phone] * Full Code (Latest Code Status on File) Date Activated Date Inactivated Comments 10/16/2018 11:40 AM 10/16/2018 6:22 PM * Full Code Date Activated Date Inactivated Comments 10/16/2018 11:40 AM 10/16/2018 11:40 AM Care Teams Needle Molder Relationship Specialty Start Date End Date Jovi Batista MD [address] [place] [address] PCP - General Family Medicine 11/22/23
[2024-09-19 08:19] VITALS: BP 129/77; PULSE 60; RESP 19; TEMP 36; O2SAT 99
--- NOTE | 2024-09-19 08:19 | ED_ITS ---
HPI - Extremity Injury (Lower) General Chief Complaint: Extremity Injury, Lower Stated Complaint: RT Foot Injury History of Present Illness HPI Narrative: Patient is a 49-year-old male who presents to urgent care with complaints of right pain. He may have stepped on a rock on Tuesday. Patient reports he picked at yesterday and is unsure whether or not there is still a foreign object in his foot. He endorses pain, especially when walking, rating it at a 3 to 4/10. Patient reports he tried to clean it out with a baby wipe and tweezers. He endorses a history of GERD, anxiety, shoulder surgeries and takes Flomax. Patient denies being a cigarette smoker and does not have diabetes. Related Data Home Medications ?Medication ?Instructions ?Recorded ?Confirmed ?Last Taken ?Type omeprazole 40 mg capsule,delayed mg 09/19/24 Unknown History release Allergies Allergy/AdvReac Type Severity Reaction Status Date / Time No Known Allergies Allergy Verified 09/19/24 08:12 Review of Systems Review of Systems: All systems reviewed & are unremarkable except as noted in HPI and below PMFSH Past Medical History Medical History GERD (gastroesophageal reflux disease) Social History Social History Living arrangements: with family Additional living arrangements comments: Occupation/Education: occupation Exam Narrative: GENERAL: Well appearing, well-nourished, non-toxic, in no acute distress. RESPIRATORY: Airway patent, respirations nonlabored. MUSCULOSKELETAL: Moves all extremities. Strength/ROM intact without gross deformities. SKIN: Warm, dry, normal color. No rashes. Two small abrasions inferior to pt's plantar side of 2nd digit on his R foot. NEURO: A&O X3. Speech clear. Cranial nerves II-XII intact. No ataxic movements. Course Course Level of Care: Express Care Visit Vital Signs Vital signs: Vital Signs Temperature 36.0 C L 09/19/24 08:19 Pulse Rate 60 09/19/24 08:19 Respiratory Rate 19 09/19/24 08:19 Blood Pressure 129/77 09/19/24 08:19 Pulse Oximetry 99 09/19/24 08:19 Oxygen Delivery Room Air 09/19/24 08:19 Temperature 36.0 C L 09/19/24 08:19 Pulse Rate 60 09/19/24 08:19 Respiratory Rate 19 09/19/24 08:19 Blood Pressure 129/77 09/19/24 08:19 Pulse Oximetry 99 09/19/24 08:19 Oxygen Delivery Room Air 09/19/24 08:19 MDM - Extremity Injury (Lower) MDM Narrative Medical decision making narrative: Patient is a 49-year-old male who presents to urgent care with complaints of right pain. He may have stepped on a rock on Tuesday. Patient reports he picked at yesterday and is unsure whether or not there is still a foreign object in his foot. He endorses pain, especially when walking, rating it at a 3 to 4/10. Patient reports he tried to clean it out with a baby wipe and tweezers. He endorses a history of GERD, anxiety, shoulder surgeries and takes Flomax. Patient denies being a cigarette smoker and does not have di abetes. Imaging Ordered: R foot x-ray Medications Ordered: Pt declined Tdap. Results: Pt's R foot x-ray indicates no acute abnormalities. Diagnosis: R foot wound Patient Education/Shared MDM: Results of imaging shared with patient. Patient strongly advised to stop digging in my foot and soak his water/soap three times a day, cover it with antibiotic ointment and keep the wound covered. He should follow-up with his PCP as needed. He will be discharged home with a prescription for Keflex. Strict return precautions provided. Patient verbalized understanding and is in agreement with plan. Vital signs stable at time of discharge. All questions answered. Differential Diagnosis Differential diagnosis: Likely puncture wound of foot and other (retained foreign object, infected foot wound) Imaging Data Attestation: I personally reviewed and interpreted this imaging study as fol lows: Radiologist's impression: Impressions Foot X-Ray 09/19/24 08:44 IMPRESSION: 1: NO ACUTE BONE OR JOINT ABNORMALITY IDENTIFIED. Discharge Plan Discharge Clinical Impression: Wound of right foot, Acute pain of right foot Patient Disposition: Home Condition: Stable Instructions: Antibiotic Form Additional Instructions: Please present to the ER with any worsening symptoms. Follow-up with primary care provider as needed. Take all medications as prescribed, including regularly scheduled medications. Complete your full dose of antibiotics Patient Language: Mauritian Prescriptions: New cephalexin 500 mg capsule 500 mg PO Q8H Qty: 30 0RF cephalexin 500 mg capsule 500 mg PO Q8H Qty: 30 0RF No Action omeprazole 40 mg capsule,delayed release(DR/EC) Follow-up/Referrals: Harms,Jovi Frias M.D. [Primary Care Provider] - Time of Disposition: 09:03
== END 2024-09-19 09:13 | disposition home or self-care (01) ==
PROVIDERS: Emergency Provider Registered Nurse; PCP Family Medicine
DX: S91.301A Unspecified open wound, right foot, initial encounter (principal); X58.XXXA Exposure to other specified factors, initial encounter; M79.671 Pain in right foot; K21.9 Gastro-esophageal reflux disease without esophagitis
CPT/HCPCS: 73620; 99213; G0463